=== PATIENT | female | born 1965 | race Caucasian/White ===

== ENCOUNTER 2019-08-17 12:30 | Day surgery (SDC) | payer MEDICAID ==
[~2019-08-17] VITALS: Ht 167.6 cm; Wt 95.3 kg
[2019-08-17] MEDS ORDERED: GLIP5TAB13 PO (12:45)
[2019-08-17] MEDS ORDERED: CLOP75TA35 PO (12:45)
[2019-08-17] MEDS ORDERED: CHOL500049 PO (12:45)
[2019-08-17] MEDS ORDERED: FERR1TAB21 PO (12:45)
[2019-08-17] MEDS ORDERED: ASPI-1130 PO (12:45)
[2019-08-17] MEDS ORDERED: METF-438 PO (12:45)
[2019-08-17] MEDS ORDERED: ATOR-2 PO (12:45)
[2019-08-17] MEDS ORDERED: METO-395 PO (12:45)
[2019-08-17] MEDS ORDERED: ESCI20TA45 PO (12:45)
[2019-08-17] MEDS ORDERED: LATA2.5D2 EACHEYE (12:45)
[2019-08-17 13:51] LABS: CLARITY,URINE CLEAR (Clear); COLOR,URINE YELLOW (Yellow); GLUCOSE, URINE NEGATIVE (Neg); KETONES,URINE NEGATIVE (Neg); LEUKOCYTE ESTERASE ,URINE NEGATIVE (Neg); NITRITES, URINE NEGATIVE (Neg); OCCULT BLOOD,URINE NEGATIVE (Neg); PH,URINE 6.5 (4.8-8.0); PROTEIN,URINE NEGATIVE (Neg); UROBILINOGEN,URINE 0.2 E.U/dL (0.2-1.0)
[2019-08-17 13:57] LABS: UA COLLECTION TYPE NON-SPECIFIED
[2019-08-17 15:59] LABS: BASOPHILS # (AUTO) 0.1 X10'3 (0-0.2); EOSINOPHILS # (AUTO) 0.1 X10'3 (0-0.9); EOSINOPHILS % (AUTO) 1.9 % (0-6); LYMPHOCYTES # (AUTO) 2.7 X10'3 (1.1-4.8); LYMPHOCYTES % (AUTO) 35.9 % (21-51); MEAN CORPUSCULAR HEMOGLOBIN 27.7 PG (27.0-31.0); MEAN CORPUSCULAR HGB CONC 32.5 g/dL (33.0-36.5); MEAN PLATELET VOLUME 6.8 FL (7.4-10.4); MONOCYTES # (AUTO) 0.3 X10'3 (0-0.9); MONOCYTES % (AUTO) 4.5 % (2-12); NEUTROPHILS # (AUTO) 4.3 X10'3 (1.8-7.7); NEUTROPHILS % (AUTO) 56.7 % (42-75); PRE OP HEMATOCRIT 33.3 % (35.0-45.0); PRE OP PLATELET COUNT 403 X10'3 (140-440); RED BLOOD COUNT 3.91 X10'6 (4.20-5.60); RED CELL DISTRIBUTION WIDTH 16.9 % (11.5-14.5)
[2019-08-17 16:00] LABS: PRE OP HEMOGLOBIN 10.8 g/dL (12.0-16.0)
[2019-08-17 16:12] LABS: PRE OP PROTIME 10.6 SECONDS (9.0-12.0)
[2019-08-17 16:14] LABS: HEMOGLOBIN A1C 6.6 % (4.5-6.2)
[2019-08-17 16:15] LABS: ALBUMIN 3.8 G/DL (3.4-5.0); ALBUMIN/GLOBULIN RATIO 1.3 (1.1-1.5); ALKALINE PHOSPHATASE 75 IU/L (46-116); BLOOD UREA NITROGEN 10 MG/DL (7-18); BUN/CREATININE RATIO 13.2 (6.6-38.0); CALCIUM 9.3 MG/DL (8.5-10.1); CHLORIDE 106 MMOL/L (99-107); CREATININE 0.76 MG/DL (0.40-0.90); PRE OP ALT 24 U/L (30-65); PRE OP ANION GAP 2 (8-16); PRE OP AST 16 U/L (10-37); PRE OP BILIRUB, TOTAL 0.2 MG/DL (0.0-1.0); PRE OP GLUCOSE 124 MG/DL (70-104); PRE OP POTASSIUM 4.1 MMOL/L (3.4-5.1); PRE OP SODIUM 140 MMOL/L (135-145); TOTAL CARBON DIOXIDE 31.8 MMOL/L (24-32); TOTAL PROTEIN 6.8 G/DL (6.4-8.2); eGFR 80 ML/MIN
[2019-08-18] MEDS ORDERED: DEC4T PO (21:34)
[2019-08-20] MEDS ORDERED: ringers solution, lacted 1,000 ML IV SCH (05:00)
[2019-08-20] MEDS ORDERED: cefazolin/dext.iso 2gm/50ml 50 ML IV ONE (05:30)
[2019-08-20] MEDS ORDERED: LORazepam 2 mg/ml vial IV PRN (05:30)
[2019-08-20] MEDS ORDERED: metoprolol tartrate 12.5mg (1/2 tablet) PO ONE (05:30)
[2019-08-20] MEDS ORDERED: mupirocin 2% nasal ointment 1gm UD NS ONE (05:30)
[2019-08-20] MEDS ORDERED: gabapentin 400mg capsule PO ONE (05:30)
[2019-08-20] MEDS ORDERED: Insulin Reg/NS 100units/100mL 100 ML IV SCH (05:30)
[2019-08-20] MEDS ORDERED: DOCUMENT DATE & TIME OF BETA-BLOCKER PO ONE (05:30)
[2019-08-20] MEDS ORDERED: vancomycin inj 1,500 MG in normal saline 300ml IV soln IV ONE (05:30)
[2019-08-20] MEDS ORDERED: dextrose 50%-water 50ml dispensing syringe IV PRN (05:30)
[2019-08-20] MEDS ORDERED: insulin glargine (Lantus) pen - multi-dose SQ PRN (05:30)
[2019-08-20] MEDS ORDERED: famotidine 20mg tablet PO ONE (05:30)
[2019-08-20 10:46] LABS: ABG BASE EXCESS -1.3 mmol/L (-2.0-3.0); ABG HCO3 22.5 mmol/L (22.0-26.0); ABG OXYGEN SATURATION 96.6 % (95-98); ABG PCO2 (T) 34.7 mmHg (35.0-45.0); ABG PO2 (T) 89.4 mmHg (83-108); ALLEN'S TEST POSITIVE; FCOHb 0.3 % (0.5-1.5); FMetHb 0.1 % (0.3-1.12); FO2Hb 96.2 % (94-100); TOTAL HEMOGLOBIN 11.2 G/dl (12.0-16.0)
== END 2019-08-17 23:59 | disposition home or self-care (01) ==
LOC: PRE-OP 12:30 → EDSTATUS 08-20 07:30
PROVIDERS: ATTEND Thoracic Surgery (Cardiothoracic Vascular Surgery)
DX: I25.110 Atherosclerotic heart disease of native coronary artery with unstable angina pectoris (principal); R07.9 Chest pain, unspecified; R94.31 Abnormal electrocardiogram [ECG] [EKG]; I25.2 Old myocardial infarction; R53.83 Other fatigue; R53.1 Weakness; E78.5 Hyperlipidemia, unspecified; D64.9 Anemia, unspecified; E11.39 Type 2 diabetes mellitus with other diabetic ophthalmic complication; H42 Glaucoma in diseases classified elsewhere; Z98.890 Other specified postprocedural states; Z79.01 Long term (current) use of anticoagulants; Z79.899 Other long term (current) drug therapy
CPT/HCPCS: 36415; 36600; 71046; 80053; 81003; 82803; 83036; 85018; 85025; 85576; 85610; 85730; 86885; 86900; 86901; 86920; 87081; 93005; 93880; 93930; 93970; 94760; J1815; J3370; J7120

== ENCOUNTER 2019-08-18 19:45 | Inpatient (IN) | payer MEDICAID ==
[~2019-08-18] VITALS: Ht 172.7 cm; Wt 97.8 kg
[~2019-08-18 19:45] MED LIST: ASPI-1130 PO; ATOR-2 PO; CHOL500049 PO; CLOP75TA35 PO; ESCI20TA45 PO; FERR1TAB21 PO; GLIP5TAB13 PO; LATA2.5D2 EACHEYE; METF-438 PO; METO-395 PO; albumin (human) 25% 100 ML IV solution IV ONE; aminocaproic acid 250 MG/1 ML inj. ONE; heparin 10,000 units/1 ML INJ ONE; papaverine 30 mg/ml 2ml inj. ONE
[2019-08-18 20:29] LABS: BASOPHILS % (AUTO) 0.1 % (0-1); EOSINOPHILS % (AUTO) 0 % (0-6); HEMATOCRIT 32.5 % (35.0-45.0); HEMOGLOBIN 10.8 g/dl (12.0-16.0); LYMPHOCYTES # (AUTO) 0.7 X10'3 (1.1-4.8); LYMPHOCYTES % (AUTO) 7.2 % (21-51); MEAN CORPUSCULAR HEMOGLOBIN 28.1 PG (27.0-31.0); MEAN CORPUSCULAR HGB CONC 33.3 g/dL (33.0-36.5); MEAN CORPUSCULAR VOLUME 84.2 FL (78-98); MEAN PLATELET VOLUME 7.3 FL (7.4-10.4); MONOCYTES # (AUTO) 0.1 X10'3 (0-0.9); MONOCYTES % (AUTO) 1.6 % (2-12); NEUTROPHILS # (AUTO) 8.6 X10'3 (1.8-7.7); NEUTROPHILS % (AUTO) 91.1 % (42-75); PLATELET COUNT 412 X10'3 (140-440); RED BLOOD COUNT 3.86 X10'6 (4.20-5.60); WHITE BLOOD COUNT 9.5 X10'3 (4.5-11.0)
[2019-08-18 20:37] LABS: PARTIAL THROMBOPLASTIN TIME 26 SECONDS (22-32)
[2019-08-18 20:41] LABS: ALANINE AMINOTRANSFERASE 23 U/L (12-78); ALBUMIN 4.1 G/DL (3.4-5.0); ALBUMIN/GLOBULIN RATIO 1.3 (1.1-1.5); ALKALINE PHOSPHATASE 84 IU/L (46-116); ANION GAP 9 (8-16); ASPARTATE AMINO TRANSFERASE 12 U/L (10-37); BILIRUBIN,TOTAL 0.3 MG/DL (0.1-1.0); BLOOD UREA NITROGEN 13 MG/DL (7-18); BUN/CREATININE RATIO 15.3 (6.6-38.0); CALCIUM 9.1 MG/DL (8.5-10.1); CHLORIDE 100 MMOL/L (99-107); CREATININE 0.85 MG/DL (0.40-0.90); GLUCOSE 430 MG/DL (70-104); POTASSIUM 4.8 MMOL/L (3.5-5.1); SODIUM 135 MMOL/L (135-145); TOTAL PROTEIN 7.3 G/DL (6.4-8.2); eGFR 70 ML/MIN
[2019-08-18] MEDS ORDERED: DEC4T PO (21:34)
[2019-08-18] MEDS ORDERED: heparin 25,000 UNIT/250ml bag 250 ML IV SCH ×2 (21:36→21:48)
[2019-08-18] MEDS ORDERED: potassium CL 10mEq/100ml bag 100 ML IV PRN ×3 (21:40→22:20)
[2019-08-18] MEDS ORDERED: acetaminophen 325mg tablet PO PRN (21:40)
[2019-08-18] MEDS ORDERED: heparin 10,000 units/1 ML INJ IV PRN ×2 (21:40→21:50)
[2019-08-18] MEDS ORDERED: HYDROcodone/acetaminophen 5mg/325mg tablet PO PRN (21:40)
[2019-08-18] MEDS ORDERED: mag hydrox/Alum hydrox/simeth 30ml oral suspension PO PRN (21:40)
[2019-08-18] MEDS ORDERED: heparin 10,000 units/1 ML INJ IV ONE ×2 (21:40→21:50)
[2019-08-18] MEDS ORDERED: magnesium Cl slow-release 64mg tablet PO PRN (21:40)
[2019-08-18] MEDS ORDERED: magnesium 2GM in 50ml NS 50 ML IV PRN ×2 (21:40→22:20)
[2019-08-18] MEDS ORDERED: magnesium 4gm in 100ml NS 100 ML IV PRN ×2 (21:40→22:20)
[2019-08-18] MEDS ORDERED: magnesium hydroxide 30ml (MOM) UD suspension PO PRN (21:40)
[2019-08-18] MEDS ORDERED: ondansetron/PF 4mg/2ml inj IV PRN (21:40)
[2019-08-18] MEDS ORDERED: potassium Cl 20 mEq SR tablet PO PRN ×3 (21:40→22:20)
[2019-08-18] MEDS ORDERED: dextrose ORAL solution 15 GM/59 ML bottle PO PRN ×2 (22:15)
[2019-08-18] MEDS ORDERED: dextrose 50%-water 50ml dispensing syringe IV PRN ×2 (22:15)
[2019-08-18] MEDS ORDERED: MESSAGE TO PHARMACY PO ONE (22:15)
[2019-08-18] MEDS ORDERED: glucagon, human recombinant 1mg kit SUBCUT PRN (22:15)
[2019-08-18] MEDS ORDERED: potassium Cl 20mEq/100mL bag 100 ML IV PRN (22:20)
[2019-08-18] MEDS ORDERED: MESSAGE TO NURSING PO ONE (22:20)
[2019-08-18] MEDS ORDERED: ESCITALOPRAM OXALATE 5 MG TABLET PO SCH (22:55)
[2019-08-18] MEDS ORDERED: atorvastatin 20mg tablet PO ONE (22:55)
[2019-08-18] MEDS ORDERED: dexamethasone 4mg tablet PO ONE (22:55)
[2019-08-18] MEDS ORDERED: ESCITALOPRAM OXALATE 5 MG TABLET PO ONE (22:55)
[2019-08-18] MEDS ORDERED: insulin glargine (Lantus) pen - multi-dose SQ SCH (23:15)
[2019-08-18] MEDS: latanoprost 0.005% 2.5ml ophthalmic drops EACHEYE SCH (23:18)
[2019-08-19] VITALS (14 sets, daily range): BP systolic 101–132; BP diastolic 42–88
--- NOTE | 2019-08-19 00:50 | NUR ---
Patient in room ED 15. I have received report from PREETHI GARCIA and had the opportunity to ask questions and assume patient care.
[2019-08-19] MEDS ORDERED: ringers solution, lacted 1,000 ML IV SCH (04:52)
[2019-08-19] MEDS ORDERED: MESSAGE TO NURSING PO ONE ×2 (04:55→10:00)
[2019-08-19] MEDS ORDERED: insulin glargine (Lantus) pen - multi-dose SQ PRN ×2 (04:55→16:15)
[2019-08-19] MEDS ORDERED: dextrose 50%-water 50ml dispensing syringe IV PRN ×2 (04:55→16:15)
[2019-08-19] MEDS ORDERED: cefazolin/dext.iso 2gm/50ml 50 ML IV ONE (05:00)
[2019-08-19] MEDS ORDERED: gabapentin 400mg capsule PO ONE (05:00)
[2019-08-19] MEDS ORDERED: vancomycin/NS 1 GM ADD-VANTAGE 250 ML IV ONE (05:00)
[2019-08-19] MEDS ORDERED: MALTODEXTRIN/FRUCTOSE 0.68 KCAL/ML LIQUID 296ML BOTTLE PO ONE (05:00)
[2019-08-19 05:52] LABS: ALANINE AMINOTRANSFERASE 18 U/L (12-78); ALBUMIN 3.8 G/DL (3.4-5.0); ALBUMIN/GLOBULIN RATIO 1.2 (1.1-1.5); ALKALINE PHOSPHATASE 66 IU/L (46-116); ANION GAP 11 (8-16); ASPARTATE AMINO TRANSFERASE 12 U/L (10-37); BILIRUBIN,TOTAL 0.3 MG/DL (0.1-1.0); BLOOD UREA NITROGEN 9 MG/DL (7-18); BUN/CREATININE RATIO 13.2 (6.6-38.0); CHLORIDE 103 MMOL/L (99-107); CREATININE 0.68 MG/DL (0.40-0.90); GLUCOSE 253 MG/DL (70-104); PHOSPHORUS 2.7 MG/DL (2.3-4.5); POTASSIUM 4.1 MMOL/L (3.5-5.1); SODIUM 139 MMOL/L (135-145); TOTAL CARBON DIOXIDE 25.1 MMOL/L (24-32); TOTAL PROTEIN 6.9 G/DL (6.4-8.2); eGFR > 90 ML/MIN
--- NOTE | 2019-08-19 06:10 | NUR ---
Patient in room MED 312. I have received report from JOSE Howe and had the opportunity to ask questions and assume patient care.
[2019-08-19 06:17] LABS: BASOPHILS % (AUTO) 0.1 % (0-1); EOSINOPHILS % (AUTO) 0 % (0-6); HEMATOCRIT 30.2 % (35.0-45.0); HEMOGLOBIN 10.3 g/dl (12.0-16.0); LYMPHOCYTES % (AUTO) 11.5 % (21-51); MEAN CORPUSCULAR HEMOGLOBIN 28.7 PG (27.0-31.0); MEAN CORPUSCULAR HGB CONC 34.1 g/dL (33.0-36.5); MEAN CORPUSCULAR VOLUME 84.1 FL (78-98); MEAN PLATELET VOLUME 7.4 FL (7.4-10.4); MONOCYTES # (AUTO) 0.2 X10'3 (0-0.9); MONOCYTES % (AUTO) 2.6 % (2-12); NEUTROPHILS # (AUTO) 7.1 X10'3 (1.8-7.7); NEUTROPHILS % (AUTO) 85.8 % (42-75); PLATELET COUNT 349 X10'3 (140-440); RED BLOOD COUNT 3.59 X10'6 (4.20-5.60); RED CELL DISTRIBUTION WIDTH 16.9 % (11.5-14.5); WHITE BLOOD COUNT 8.3 X10'3 (4.5-11.0)
[2019-08-19] MEDS: dexamethasone 4mg tablet PO SCH ×2 (07:47→20:08)
[2019-08-19] MEDS ORDERED: ESCITALOPRAM OXALATE 5 MG TABLET PO SCH (08:00)
[2019-08-19] MEDS ORDERED: metoprolol succinate 25mg (24-HOUR) SR. Tablet PO SCH (08:00)
[2019-08-19] MEDS ORDERED: aspirin 81mg tablet.DR PO SCH (08:00)
[2019-08-19] MEDS ORDERED: K and/or MAG REPLACEMENT MC SCH (08:00)
[2019-08-19] MEDS ORDERED: metoprolol tartrate 12.5mg (1/2 tablet) PO SCH (08:00)
[2019-08-19] MEDS ORDERED: mupirocin 2% ointment 22GM NS SCH ×2 (08:00→20:00)
[2019-08-19] MEDS ORDERED: atorvastatin 20mg tablet PO SCH (08:00)
[2019-08-19] MEDS: insulin Lispro (HumaLOG) vial - multi-dose SQ SCH ×2 (08:08→10:01)
[2019-08-19] MEDS ORDERED: ceFAZolin 1000mg inj ONE (09:33)
[2019-08-19] MEDS ORDERED: famotidine 20mg tablet PO ONE (10:10)
[2019-08-19] MEDS ORDERED: LORazepam 2 mg/ml vial IV ONE (10:10)
[2019-08-19] MEDS ORDERED: SUFENTANIL CITRATE 50 MCG/ML 2ml ampule IV ONE (10:48)
[2019-08-19] MEDS ORDERED: MIDAZolam 1mg/ml 10ml vial ONE (10:48)
[2019-08-19] MEDS ORDERED: cefazolin 2gm/NS 100ml IVPB IV ONE (10:50)
[2019-08-19] MEDS ORDERED: protamine sulf. 10mg/ml inj. IV ONE (10:50)
[2019-08-19] MEDS ORDERED: isoflurane 100ml inhalation liquid IH ONE (10:50)
[2019-08-19] MEDS ORDERED: aminocaproic acid 250 MG/1 ML inj. ONE (10:50)
[2019-08-19] MEDS ORDERED: INSULIN Regular In NS 100 units/100 ML PLAST..BAG IV ONE (10:50)
[2019-08-19] MEDS ORDERED: niCARDipine in NS 40mg/200ml (0.2mg/ml) IVPB IV ONE (10:50)
[2019-08-19] MEDS ORDERED: DOPamine/D5W 400mg/250ml bag IV ONE (10:50)
[2019-08-19] MEDS ORDERED: nitroGLYCERIN in D5W 50mg/250ml (Tridil) infusion IV ONE (10:50)
--- NOTE | 2019-08-19 11:00 | NUR ---
Patient to CVOR.
[2019-08-19] MEDS: mupirocin 2% nasal ointment 1gm UD NS SCH (11:02)
[2019-08-19 12:01] LABS: ABG BASE EXCESS 0.5 mmol/L (-2.0-3.0); ABG HCO3 24.7 mmol/L (22.0-26.0); ABG OXYGEN SATURATION 99.4 % (95-98); ABG PCO2 37.8 mmHg (35.0-45.0); ABG PH 7.433 (7.350-7.450); ABG PO2 406.1 mmHg (60.0-100.0); CL (ABG) 102 mmol/L (99-107); FMetHb 0.3 % (0.3-1.12); FO2Hb 99.1 % (94-100); GLUCOSE (ABG) 249 mg/dl (70-104); K (ABG) 3.9 mmol/L (3.3-5.1); NA (ABG) 133 mmol/L (135-145); TOTAL HEMOGLOBIN 9.2 G/dl (12.0-16.0)
[2019-08-19] MEDS ORDERED: propofol inj 20 ML IV ONE (12:12)
[2019-08-19] MEDS ORDERED: rocuronium 10mg/ml inj IV ONE ×2 (12:12)
[2019-08-19] MEDS ORDERED: 0.9 % SODIUM CHLORIDE 10 ML VIAL ONE ×2 (12:12)
[2019-08-19] MEDS ORDERED: LIDOcaine 2% (20mg/ml) 5ml vial ONE (12:12)
[2019-08-19] MEDS ORDERED: ePHEDrine 50MG/ML INJ. ONE (12:12)
[2019-08-19] MEDS ORDERED: papaverine 30 mg/ml 2ml inj. IA ONE ×2 (12:24→12:25)
[2019-08-19] MEDS ORDERED: heparin 10,000 units/1 ML INJ IR ONE (12:26)
[2019-08-19] MEDS ORDERED: pancuronium br 1mg/ml inj IV ONE (12:41)
[2019-08-19 12:55] LABS: ABG BASE EXCESS -1.3 mmol/L (-2.0-3.0); ABG HCO3 23.1 mmol/L (22.0-26.0); ABG OXYGEN SATURATION 80.3 % (95-98); ABG PCO2 37.2 mmHg (35.0-45.0); ABG PO2 46.5 mmHg (60.0-100.0); CL (ABG) 103 mmol/L (99-107); FCOHb 0.3 % (0.5-1.5); FMetHb 0.4 % (0.3-1.12); FO2Hb 79.7 % (94-100); GLUCOSE (ABG) 197 mg/dl (70-104); IONIZED CA (ABG) 1.17 mmol/L (1.03-1.32); K (ABG) 4.2 mmol/L (3.3-5.1); NA (ABG) 135 mmol/L (135-145); TOTAL HEMOGLOBIN 9.3 G/dl (12.0-16.0)
--- NOTE | 2019-08-19 13:05 | NUR ---
Called report to JOSE Mims. Plan of care reviewed, all questions answered. Personal belongings collected and sent to [facility] 2007.
[2019-08-19 13:30] LABS: ABG BASE EXCESS VENOUS -2.4 mmol/L; ABG HCO3 VENOUS 20.9 mmol/L; ABG PCO2 VENOUS 30.5 mmHg; ABG PO2 VENOUS 411.7 mmHg; CL (ABG) 105 mmol/L (99-107); FCOHb VENOUS 0.3 %; FHHb VENOUS 0.7 %; FMetHb VENOUS 0.5 %; FO2Hb VENOUS 98.5 %; GLUCOSE (ABG) 161 mg/dl (70-104); IONIZED CA (ABG) 1.14 mmol/L (1.03-1.32); K (ABG) 4.1 mmol/L (3.3-5.1); NA (ABG) 136 mmol/L (135-145); TOTAL HEMOGLOBIN 9.9 G/dl (12.0-16.0)
[2019-08-19 14:00] LABS: ABG BASE EXCESS 0.3 mmol/L (-2.0-3.0); ABG HCO3 22.8 mmol/L (22.0-26.0); ABG OXYGEN SATURATION 99.2 % (95-98); ABG PCO2 28.5 mmHg (35.0-45.0); ABG PO2 323.4 mmHg (60.0-100.0); CL (ABG) 101 mmol/L (99-107); FCOHb 0.1 % (0.5-1.5); FMetHb 0.5 % (0.3-1.12); FO2Hb 98.6 % (94-100); GLUCOSE (ABG) 163 mg/dl (70-104); IONIZED CA (ABG) 0.91 mmol/L (1.03-1.32); K (ABG) 4.1 mmol/L (3.3-5.1); NA (ABG) 133 mmol/L (135-145); TOTAL HEMOGLOBIN 8.6 G/dl (12.0-16.0)
[2019-08-19] MEDS ORDERED: midazolam 100mg in NS 100ml 100 ML IV PRN (14:01)
[2019-08-19] MEDS ORDERED: midazolam 2 mg/2 ml injection IV ONE (14:05)
[2019-08-19] MEDS ORDERED: fentaNYL/PF 50MCG/1 ML 2ML syringe IV PRN ×2 (14:05)
[2019-08-19 14:20] LABS: ABG BASE EXCESS -1.1 mmol/L (-2.0-3.0); ABG HCO3 22.7 mmol/L (22.0-26.0); ABG OXYGEN SATURATION 99.3 % (95-98); ABG PH 7.442 (7.350-7.450); ABG PO2 319.8 mmHg (60.0-100.0); CL (ABG) 103 mmol/L (99-107); FCOHb 0.5 % (0.5-1.5); FMetHb 0.3 % (0.3-1.12); FO2Hb 98.5 % (94-100); GLUCOSE (ABG) 145 mg/dl (70-104); IONIZED CA (ABG) 1.05 mmol/L (1.03-1.32); K (ABG) 4.9 mmol/L (3.3-5.1); NA (ABG) 134 mmol/L (135-145); TOTAL HEMOGLOBIN 8.8 G/dl (12.0-16.0)
[2019-08-19 14:50] LABS: ABG BASE EXCESS 2.8 mmol/L (-2.0-3.0); ABG HCO3 26.8 mmol/L (22.0-26.0); ABG OXYGEN SATURATION 99.1 % (95-98); ABG PCO2 38.8 mmHg (35.0-45.0); ABG PH 7.457 (7.350-7.450); ABG PO2 328.3 mmHg (60.0-100.0); CL (ABG) 105 mmol/L (99-107); FCOHb 0.1 % (0.5-1.5); FMetHb 0.4 % (0.3-1.12); FO2Hb 98.6 % (94-100); GLUCOSE (ABG) 151 mg/dl (70-104); IONIZED CA (ABG) 1.05 mmol/L (1.03-1.32); K (ABG) 4.8 mmol/L (3.3-5.1); NA (ABG) 137 mmol/L (135-145); TOTAL HEMOGLOBIN 9.1 G/dl (12.0-16.0)
[2019-08-19 15:26] LABS: ABG BASE EXCESS 0.9 mmol/L (-2.0-3.0); ABG HCO3 25.3 mmol/L (22.0-26.0); ABG OXYGEN SATURATION 99.2 % (95-98); ABG PCO2 39.4 mmHg (35.0-45.0); ABG PH 7.426 (7.350-7.450); CL (ABG) 103 mmol/L (99-107); FCOHb 0.3 % (0.5-1.5); FMetHb 0.6 % (0.3-1.12); FO2Hb 98.3 % (94-100); GLUCOSE (ABG) 141 mg/dl (70-104); IONIZED CA (ABG) 1.61 mmol/L (1.03-1.32); K (ABG) 4.5 mmol/L (3.3-5.1); NA (ABG) 134 mmol/L (135-145); TOTAL HEMOGLOBIN 9.3 G/dl (12.0-16.0)
[2019-08-19] MEDS ORDERED: albumin (Human) 5% 250ml 250 ML IV ONE (15:53)
[2019-08-19] MEDS ORDERED: niCARDipine-NS 40mg/200ml IVPB 200 ML IV PRN (16:13)
[2019-08-19] MEDS ORDERED: sodium chloride 0.45% 1,000 ML IV SCH (16:13)
[2019-08-19] MEDS ORDERED: nitroGLYCERIN-Tridil 50MG/D5W 250 ML IV PRN (16:13)
[2019-08-19] MEDS ORDERED: DOPamine 400mg/D5W 250ml 250 ML IV PRN (16:13)
[2019-08-19] MEDS ORDERED: Insulin Reg/NS 100units/100mL 100 ML IV SCH (16:13)
[2019-08-19] MEDS ORDERED: potassium Cl 20 mEq SR tablet PO PRN (16:15)
[2019-08-19] MEDS ORDERED: acetaminophen 325mg tablet PO PRN ×2 (16:15)
[2019-08-19] MEDS ORDERED: bisacodyl 10mg suppository rectal RC PRN (16:15)
[2019-08-19] MEDS ORDERED: magnesium citrate 296ml oral solution PO PRN (16:15)
[2019-08-19] MEDS ORDERED: morphine 4 MG/ML inj SYRINge IV PRN (16:15)
[2019-08-19] MEDS ORDERED: sodium phosphate inj. 30 MMOL in dextrose 5%-water 250 ML IV PRN (16:15)
[2019-08-19] MEDS ORDERED: magnesium 2GM in 50ml NS 50 ML IV PRN (16:15)
[2019-08-19] MEDS ORDERED: metoclopramide 5 mg/ml inj IV PRN (16:15)
[2019-08-19] MEDS ORDERED: pantoprazole 40 MG vial IV ONE (16:15)
[2019-08-19] MEDS ORDERED: ondansetron/PF 4mg/2ml inj IV PRN (16:15)
[2019-08-19] MEDS ORDERED: magnesium hydroxide 30ml (MOM) UD suspension PO PRN (16:15)
[2019-08-19] MEDS ORDERED: magnesium 4gm in 100ml NS 100 ML IV PRN (16:15)
[2019-08-19] MEDS ORDERED: sodium phosphate inj. 15 MMOL in dextrose 5%-water 250 ML IV PRN (16:15)
[2019-08-19] MEDS ORDERED: mineral oil 133ml enema RC PRN (16:15)
[2019-08-19] MEDS ORDERED: normal saline 250ml IV soln 250 ML IV PRN (16:15)
[2019-08-19] MEDS ORDERED: Neutra Phos packet PO PRN (16:15)
[2019-08-19] MEDS ORDERED: HYDROcodone/acetaminophen 10/325mg tab PO PRN (16:15)
--- NOTE | 2019-08-19 16:30 | NUR ---
Received to room , accompanied by MDs and surgical crew. Placed on ventilator, to traffic monitor specialist, arterial line and PA line pressure monitored. Chest tubes to suction at 20 cm. Olivarez cath to gravity drainage. Dressings are dry and intact. See assessment record. All vasoactive drugs are infusing via central line.
[2019-08-19 16:45] LABS: ABG BASE EXCESS -0.2 mmol/L (-2.0-3.0); ABG HCO3 23.1 mmol/L (22.0-26.0); ABG OXYGEN SATURATION 99.2 % (95-98); ABG PCO2 (T) 33.3 mmHg (35.0-45.0); ABG PH (T) 7.459 (7.350-7.450); ABG PO2 (T) 249.3 mmHg (83-108); FCOHb 0.3 % (0.5-1.5); FMetHb 0.4 % (0.3-1.12); FO2Hb 98.5 % (94-100); PEEP 5 cm H2O; RESPIRATORY RATE 12 b/min; TIDAL VOLUME 500 mL
[2019-08-19 16:47] LABS: BASOPHILS % (AUTO) 0.1 % (0-1); EOSINOPHILS % (AUTO) 0 % (0-6); HEMATOCRIT 32.7 % (35.0-45.0); HEMOGLOBIN 11.1 g/dl (12.0-16.0); LYMPHOCYTES % (AUTO) 5.1 % (21-51); MEAN CORPUSCULAR HEMOGLOBIN 28.5 PG (27.0-31.0); MEAN CORPUSCULAR HGB CONC 34.1 g/dL (33.0-36.5); MEAN CORPUSCULAR VOLUME 83.6 FL (78-98); MONOCYTES % (AUTO) 5.5 % (2-12); NEUTROPHILS # (AUTO) 17.1 X10'3 (1.8-7.7); NEUTROPHILS % (AUTO) 89.3 % (42-75); PLATELET COUNT 229 X10'3 (140-440); RED BLOOD COUNT 3.91 X10'6 (4.20-5.60); WHITE BLOOD COUNT 19.1 X10'3 (4.5-11.0)
[2019-08-19 16:53] LABS: ALANINE AMINOTRANSFERASE 15 U/L (12-78); ALBUMIN 2.9 G/DL (3.4-5.0); ALBUMIN/GLOBULIN RATIO 1.6 (1.1-1.5); ALKALINE PHOSPHATASE 39 IU/L (46-116); ANION GAP 5 (8-16); ASPARTATE AMINO TRANSFERASE 34 U/L (10-37); BILIRUBIN,TOTAL 0.7 MG/DL (0.1-1.0); BLOOD UREA NITROGEN 9 MG/DL (7-18); BUN/CREATININE RATIO 14.5 (6.6-38.0); CALCIUM 8.6 MG/DL (8.5-10.1); CHLORIDE 111 MMOL/L (99-107); CREATININE 0.62 MG/DL (0.40-0.90); GLUCOSE 142 MG/DL (70-104); PHOSPHORUS 2.3 MG/DL (2.3-4.5); POTASSIUM 3.8 MMOL/L (3.5-5.1); SODIUM 143 MMOL/L (135-145); TOTAL CARBON DIOXIDE 27.1 MMOL/L (24-32); TOTAL PROTEIN 4.7 G/DL (6.4-8.2); eGFR > 90 ML/MIN
[2019-08-19] MEDS: albumin (Human) 5% 250ml 250 ML IV PRN ×3 (17:06→20:05)
[2019-08-19 17:14] LABS: PARTIAL THROMBOPLASTIN TIME 23 SECONDS (22-32)
--- NOTE | 2019-08-19 18:27 | NUR ---
Problems reprioritized. Patient report given, questions answered & plan of care reviewed with JOSE Rivera.
--- NOTE | 2019-08-19 18:30 | NUR ---
[facility]. I have received report from Prasanna GARCIA and had the opportunity to ask questions and assume patient care. Addendum: 08/19/19 at 204 by Nicole Porter RN Amended: Links added.
[2019-08-19] MEDS: sennosides/docusate sodium tablet PO SCH (20:00)
[2019-08-19] MEDS: gabapentin 300mg capsule PO SCH (20:09)
[2019-08-19] MEDS: vancomycin/NS 1 GM ADD-VANTAGE 250 ML IV SCH (20:18)
[2019-08-19] MEDS: morphine 4 MG/ML inj SYRINge IV PRN ×2 (20:25→22:42)
[2019-08-19] MEDS: latanoprost 0.005% 2.5ml ophthalmic drops EACHEYE SCH (21:00)
[2019-08-19] MEDS ORDERED: insulin glargine (Lantus) pen - multi-dose SQ SCH (21:00)
[2019-08-19] MEDS: ESCITALOPRAM OXALATE 5 MG TABLET PO SCH (21:00)
[2019-08-19 22:21] LABS: ABG BASE EXCESS -0.7 mmol/L (-2.0-3.0); ABG HCO3 24.3 mmol/L (22.0-26.0); ABG OXYGEN SATURATION 96.6 % (95-98); ABG PCO2 (T) 43.3 mmHg (35.0-45.0); ABG PH (T) 7.371 (7.350-7.450); ABG PO2 (T) 96.2 mmHg (83-108); FCOHb 0.3 % (0.5-1.5); FMetHb 0.2 % (0.3-1.12); FO2Hb 96.1 % (94-100); PATIENT TEMPERATURE 37.8; PEEP 5 cm H2O
[2019-08-19 22:44] LABS: BASOPHILS % (AUTO) 0.1 % (0-1); EOSINOPHILS % (AUTO) 0 % (0-6); HEMATOCRIT 30.9 % (35.0-45.0); HEMOGLOBIN 10.4 g/dl (12.0-16.0); LYMPHOCYTES # (AUTO) 0.6 X10'3 (1.1-4.8); LYMPHOCYTES % (AUTO) 3.5 % (21-51); MEAN CORPUSCULAR HEMOGLOBIN 28.1 PG (27.0-31.0); MEAN CORPUSCULAR HGB CONC 33.6 g/dL (33.0-36.5); MEAN CORPUSCULAR VOLUME 83.9 FL (78-98); MEAN PLATELET VOLUME 7.1 FL (7.4-10.4); MONOCYTES # (AUTO) 0.8 X10'3 (0-0.9); MONOCYTES % (AUTO) 4.7 % (2-12); NEUTROPHILS # (AUTO) 14.7 X10'3 (1.8-7.7); NEUTROPHILS % (AUTO) 91.7 % (42-75); PLATELET COUNT 211 X10'3 (140-440); RED BLOOD COUNT 3.68 X10'6 (4.20-5.60); RED CELL DISTRIBUTION WIDTH 16.1 % (11.5-14.5); WHITE BLOOD COUNT 16.1 X10'3 (4.5-11.0)
[2019-08-19 23:04] LABS: ALBUMIN 3.8 G/DL (3.4-5.0); ANION GAP 6 (8-16); BLOOD UREA NITROGEN 9 MG/DL (7-18); BUN/CREATININE RATIO 14.8 (6.6-38.0); CALCIUM 7.5 MG/DL (8.5-10.1); CHLORIDE 113 MMOL/L (99-107); CREATININE 0.61 MG/DL (0.40-0.90); GLUCOSE 142 MG/DL (70-104); MAGNESIUM 2.3 MG/DL (1.5-2.4); PHOSPHORUS 2.7 MG/DL (2.3-4.5); POTASSIUM 3.5 MMOL/L (3.5-5.1); SODIUM 147 MMOL/L (135-145); TOTAL CARBON DIOXIDE 27.9 MMOL/L (24-32); eGFR > 90 ML/MIN
--- NOTE | 2019-08-19 23:07 | NUR ---
Extubated patient to 4LNC w/RT without incident@2236. Patient tolerated well. Says 99% on 4L, will titrate as tolerated. Will continue to monitor.
[2019-08-20] VITALS (24 sets, daily range): BP systolic 76–116; BP diastolic 50–72
[2019-08-20] MEDS: potassium Cl 20mEq/100mL bag 100 ML IV PRN ×3 (00:20→03:02)
[2019-08-20] MEDS: ceFAZolin 1GM/D5W- ADD-VANTAGE 50 ML IV SCH ×3 (00:35→15:15)
[2019-08-20] MEDS: morphine 4 MG/ML inj SYRINge IV PRN (02:19)
--- NOTE | 2019-08-20 02:48 | NUR ---
Patient appears to be sleeping. Medicated for pain level of 7/10 per patient statement. Will continue to monitor.
[2019-08-20] MEDS: HYDROcodone/acetaminophen 10/325mg tab PO PRN ×3 (05:26→18:50)
--- NOTE | 2019-08-20 05:41 | NUR ---
Patient up to chair w/3 person assist. Tolerating well. No complaints of nausea or dizziness. Medicated for pain level of 4/10 per patient statement.
[2019-08-20 05:55] LABS: BASOPHILS % (AUTO) 0 % (0-1); EOSINOPHILS % (AUTO) 0 % (0-6); HEMATOCRIT 31.6 % (35.0-45.0); HEMOGLOBIN 10.6 g/dl (12.0-16.0); LYMPHOCYTES # (AUTO) 0.8 X10'3 (1.1-4.8); LYMPHOCYTES % (AUTO) 6.1 % (21-51); MEAN CORPUSCULAR HEMOGLOBIN 28.2 PG (27.0-31.0); MEAN CORPUSCULAR HGB CONC 33.6 g/dL (33.0-36.5); MEAN CORPUSCULAR VOLUME 83.8 FL (78-98); MEAN PLATELET VOLUME 7.1 FL (7.4-10.4); MONOCYTES % (AUTO) 7.3 % (2-12); NEUTROPHILS % (AUTO) 86.6 % (42-75); PLATELET COUNT 200 X10'3 (140-440); RED BLOOD COUNT 3.77 X10'6 (4.20-5.60); RED CELL DISTRIBUTION WIDTH 16.6 % (11.5-14.5); WHITE BLOOD COUNT 13.8 X10'3 (4.5-11.0)
[2019-08-20 06:02] LABS: PARTIAL THROMBOPLASTIN TIME 26 SECONDS (22-32)
[2019-08-20 06:06] LABS: ALANINE AMINOTRANSFERASE 23 U/L (12-78); ALBUMIN 3.7 G/DL (3.4-5.0); ALBUMIN/GLOBULIN RATIO 2.1 (1.1-1.5); ALKALINE PHOSPHATASE 38 IU/L (46-116); ANION GAP 4 (8-16); ASPARTATE AMINO TRANSFERASE 97 U/L (10-37); BILIRUBIN,TOTAL 0.7 MG/DL (0.1-1.0); BLOOD UREA NITROGEN 8 MG/DL (7-18); BUN/CREATININE RATIO 14.3 (6.6-38.0); CALCIUM 7.8 MG/DL (8.5-10.1); CHLORIDE 111 MMOL/L (99-107); CREATININE 0.56 MG/DL (0.40-0.90); GLUCOSE 181 MG/DL (70-104); MAGNESIUM 2.9 MG/DL (1.5-2.4); PHOSPHORUS 3.2 MG/DL (2.3-4.5); POTASSIUM 4.8 MMOL/L (3.5-5.1); SODIUM 144 MMOL/L (135-145); TOTAL CARBON DIOXIDE 28.7 MMOL/L (24-32); TOTAL PROTEIN 5.5 G/DL (6.4-8.2); eGFR > 90 ML/MIN
[2019-08-20] MEDS: Insulin Reg/NS 100units/100mL 100 ML IV SCH ×2 (06:20→07:31)
--- NOTE | 2019-08-20 06:24 | NUR ---
Problems reprioritized. Patient report given, questions answered & plan of care reviewed with Marisel GARCIA.
[2019-08-20] MEDS: sennosides/docusate sodium tablet PO SCH ×2 (07:21→20:00)
[2019-08-20] MEDS: dexamethasone 4mg tablet PO SCH ×3 (07:21→21:39)
[2019-08-20] MEDS: vancomycin/NS 1 GM ADD-VANTAGE 250 ML IV SCH ×2 (07:21→21:53)
[2019-08-20] MEDS: gabapentin 300mg capsule PO SCH ×3 (07:21→21:39)
[2019-08-20] MEDS: aspirin 325mg tablet, delayed-release (Ecotrin) PO SCH (07:24)
[2019-08-20] MEDS: atorvastatin 10mg tablet PO SCH (07:24)
[2019-08-20] MEDS: metoprolol tartrate 12.5mg (1/2 tablet) PO SCH ×2 (07:24→20:00)
[2019-08-20] MEDS: mupirocin 2% nasal ointment 1gm UD NS SCH ×2 (08:00→21:53)
[2019-08-20] MEDS ORDERED: insulin Lispro (HumaLOG) vial - multi-dose SQ SCH (08:50)
[2019-08-20 10:37] LABS: ACT @ 1.70 U 272 SEC (193-297); ACT @ 2.84 U 367 SEC (260-420); BASELINE ACT 139 SEC (101-148); PATIENT WEIGHT 96.0k KG
[2019-08-20 10:37] LABS: ACTIVATED CLOTTING TIME 130 SEC (101-148)
[2019-08-20 11:01] LABS: ISTAT Hct MIX 23 %PCV (35-48); ISTAT O2 SATURATION MIX VENOUS 100 % (60-80); ISTAT SOURCE BLNK
--- NOTE | 2019-08-20 11:04 | NUR ---
report given to MAURICIO GARCIA
[2019-08-20] MEDS ORDERED: albumin (Human) 5% 250ml 250 ML IV ONE ×2 (12:05)
--- NOTE | 2019-08-20 12:51 | NUR ---
CABG Consult: Pt s/p CABG will need CABG ed once clinically stable prior to d/c. Addendum: 08/20/19 at [address] Amended: Links added.
[2019-08-20] MEDS ORDERED: dextrose 50%-water 50ml dispensing syringe IV PRN ×2 (12:55)
[2019-08-20] MEDS ORDERED: glucagon, human recombinant 1mg kit SUBCUT PRN (12:55)
[2019-08-20] MEDS ORDERED: dextrose ORAL solution 15 GM/59 ML bottle PO PRN ×2 (12:55)
--- NOTE | 2019-08-20 12:58 | NUR ---
Pt's Humalog arrived from pharmacy and missed dosed. Hyperglycemia management protocol ordered per IV to SQ Insulin policy. Insulin gtt stopped. Pt has received 500mL 5% Albumin, BP has responded, pt is asymptomatic.
--- NOTE | 2019-08-20 16:30 | NUR ---
Right radial arterial line and PA catheter and introducer discontinued.
--- NOTE | 2019-08-20 18:44 | NUR ---
Problems reprioritized. Patient report given, questions answered & plan of care reviewed with JOSE Yoder.
--- NOTE | 2019-08-20 18:45 | NUR ---
Patient in room CICU 2006. I have received report from Prasanna GARCIA and had the opportunity to ask questions and assume patient care.
[2019-08-20] MEDS: insulin Lispro (HumaLOG) vial - multi-dose SQ SCH (19:48)
[2019-08-20] MEDS: mineral oil/petrolatum ophthal oint EACHEYE SCH (20:00)
[2019-08-20] MEDS: ESCITALOPRAM OXALATE 5 MG TABLET PO SCH (21:39)
[2019-08-20] MEDS: latanoprost 0.005% 2.5ml ophthalmic drops EACHEYE SCH (21:46)
[2019-08-21] VITALS (17 sets, daily range): BP systolic 87–142; BP diastolic 48–77
[2019-08-21] MEDS: ceFAZolin 1GM/D5W- ADD-VANTAGE 50 ML IV SCH ×2 (00:15→07:44)
[2019-08-21] MEDS: mineral oil/petrolatum ophthal oint EACHEYE SCH ×4 (02:00→19:55)
[2019-08-21 03:28] LABS: BASOPHILS % (AUTO) 0 % (0-1); EOSINOPHILS % (AUTO) 0 % (0-6); HEMATOCRIT 26.1 % (35.0-45.0); HEMOGLOBIN 8.9 g/dl (12.0-16.0); LYMPHOCYTES # (AUTO) 0.8 X10'3 (1.1-4.8); LYMPHOCYTES % (AUTO) 7.4 % (21-51); MEAN CORPUSCULAR HEMOGLOBIN 29.2 PG (27.0-31.0); MEAN CORPUSCULAR HGB CONC 34.3 g/dL (33.0-36.5); MEAN CORPUSCULAR VOLUME 85.2 FL (78-98); MEAN PLATELET VOLUME 7.3 FL (7.4-10.4); MONOCYTES # (AUTO) 0.6 X10'3 (0-0.9); MONOCYTES % (AUTO) 5.4 % (2-12); NEUTROPHILS # (AUTO) 9.3 X10'3 (1.8-7.7); NEUTROPHILS % (AUTO) 87.2 % (42-75); PLATELET COUNT 135 X10'3 (140-440); RED BLOOD COUNT 3.06 X10'6 (4.20-5.60); RED CELL DISTRIBUTION WIDTH 16.6 % (11.5-14.5); WHITE BLOOD COUNT 10.6 X10'3 (4.5-11.0)
[2019-08-21 03:45] LABS: ALBUMIN 3.3 G/DL (3.4-5.0); ANION GAP 3 (8-16); BLOOD UREA NITROGEN 14 MG/DL (7-18); BUN/CREATININE RATIO 21.9 (6.6-38.0); CHLORIDE 106 MMOL/L (99-107); CREATININE 0.64 MG/DL (0.40-0.90); GLUCOSE 214 MG/DL (70-104); MAGNESIUM 2.3 MG/DL (1.5-2.4); PHOSPHORUS 2.5 MG/DL (2.3-4.5); POTASSIUM 4.8 MMOL/L (3.5-5.1); SODIUM 139 MMOL/L (135-145); TOTAL CARBON DIOXIDE 30.2 MMOL/L (24-32); eGFR > 90 ML/MIN
[2019-08-21] MEDS: HYDROcodone/acetaminophen 10/325mg tab PO PRN (06:16)
--- NOTE | 2019-08-21 06:25 | NUR ---
Problems reprioritized. Patient report given, questions answered & plan of care reviewed.
[2019-08-21] MEDS: dexamethasone 4mg tablet PO SCH ×3 (07:38→20:41)
[2019-08-21] MEDS: gabapentin 300mg capsule PO SCH ×2 (07:38→12:20)
[2019-08-21] MEDS: sennosides/docusate sodium tablet PO SCH ×2 (07:38→20:40)
[2019-08-21] MEDS: aspirin 325mg tablet, delayed-release (Ecotrin) PO SCH (07:38)
[2019-08-21] MEDS: metoprolol tartrate 12.5mg (1/2 tablet) PO SCH ×2 (07:38→20:00)
[2019-08-21] MEDS: pantoprazole 40mg Tablet.DR PO SCH (07:38)
[2019-08-21] MEDS: atorvastatin 10mg tablet PO SCH (07:38)
[2019-08-21] MEDS ORDERED: magnesium 4gm in 100ml NS 100 ML IV PRN (08:10)
[2019-08-21] MEDS ORDERED: magnesium 2GM in 50ml NS 50 ML IV PRN (08:10)
[2019-08-21] MEDS ORDERED: furosemide 20 MG/2 ML vial IV ONE (08:10)
[2019-08-21] MEDS ORDERED: potassium Cl 20 mEq SR tablet PO PRN (08:10)
[2019-08-21] MEDS ORDERED: potassium Cl 20mEq/100mL bag 100 ML IV PRN (08:10)
--- NOTE | 2019-08-21 09:49 | NUR ---
CL has been removed. No issues. Pressure held, no bleeding, new dressing applied.
--- NOTE | 2019-08-21 11:10 | NUR ---
CABG Consult: Pt/family seen by REINA for written/verbal CABG/heart healthy diet eds w/ RD contact information provided. Pt refused vegetarian meals; reports is vegan and diabetic hx w/ currently too many carbs. Pt is having food brought from home by . REINA d/w RN regarding additional of carb controlled diet per MD approval given hx. Pt requests herbal tea BIDLD in addition to water as only drink preferences; dietary notified. Pt bringing in shake containing MVI from outside and herbal tea at breakfasts. Unable to provide ONS at this time given vegan diet preferences; pt is understanding. Addendum: 08/21/19 at [address] Amended: Links added.
--- NOTE | 2019-08-21 11:22 | NUR ---
Olivarez Catheter removed per MD orders. Will monitor for bladder distention if needed. Educated patient on need for them to urinate within the next few hours, and to let me know if they are feeling the urge to urinate without being able to do so.
--- NOTE | 2019-08-21 14:18 | NUR ---
Patient has been transferred from the CICU room 2006, to the ACCE unit room 308. I will continue care with the patient on the new unit. Patient's belongings and personal medications have also been brought to the ACCE unit. Patient has family at the bedside and is currently sitting up in bed visiting.
[2019-08-21] MEDS: insulin Lispro (HumaLOG) vial - multi-dose SQ SCH ×2 (14:26→19:15)
[2019-08-21] MEDS: potassium Cl 20 mEq SR tablet PO SCH (20:00)
[2019-08-21] MEDS: latanoprost 0.005% 2.5ml ophthalmic drops EACHEYE SCH (20:40)
[2019-08-21] MEDS: magnesium Cl slow-release 64mg tablet PO SCH (20:40)
[2019-08-21] MEDS: ESCITALOPRAM OXALATE 5 MG TABLET PO SCH (20:41)
[2019-08-22] MEDS: mineral oil/petrolatum ophthal oint EACHEYE SCH ×3 (00:40→14:25)
[2019-08-22 02:00] VITALS: BP 103/50
[2019-08-22] MEDS: HYDROcodone/acetaminophen 10/325mg tab PO PRN ×2 (03:55→20:35)
[2019-08-22 05:10] LABS: BASOPHILS % (AUTO) 0.3 % (0-1); EOSINOPHILS % (AUTO) 0.1 % (0-6); HEMATOCRIT 27.8 % (35.0-45.0); HEMOGLOBIN 9.5 g/dl (12.0-16.0); MEAN CORPUSCULAR HEMOGLOBIN 28.7 PG (27.0-31.0); MEAN CORPUSCULAR HGB CONC 34.1 g/dL (33.0-36.5); MEAN CORPUSCULAR VOLUME 84.3 FL (78-98); MEAN PLATELET VOLUME 7.1 FL (7.4-10.4); MONOCYTES # (AUTO) 0.6 X10'3 (0-0.9); MONOCYTES % (AUTO) 5.3 % (2-12); NEUTROPHILS # (AUTO) 9.6 X10'3 (1.8-7.7); NEUTROPHILS % (AUTO) 85.3 % (42-75); PLATELET COUNT 161 X10'3 (140-440); RED CELL DISTRIBUTION WIDTH 16.3 % (11.5-14.5); WHITE BLOOD COUNT 11.2 X10'3 (4.5-11.0)
[2019-08-22 05:28] LABS: ALBUMIN 3.1 G/DL (3.4-5.0); ANION GAP 5 (8-16); BLOOD UREA NITROGEN 14 MG/DL (7-18); BUN/CREATININE RATIO 23.7 (6.6-38.0); CALCIUM 8.4 MG/DL (8.5-10.1); CHLORIDE 102 MMOL/L (99-107); CREATININE 0.59 MG/DL (0.40-0.90); GLUCOSE 185 MG/DL (70-104); POTASSIUM 4.1 MMOL/L (3.5-5.1); SODIUM 138 MMOL/L (135-145); TOTAL CARBON DIOXIDE 31.2 MMOL/L (24-32); eGFR > 90 ML/MIN
[2019-08-22 06:00] VITALS: BP 106/56
--- NOTE | 2019-08-22 06:30 | NUR ---
Problems reprioritized. Patient report given, questions answered & plan of care reviewed with JOSE Mitchell.
--- NOTE | 2019-08-22 06:30 | NUR ---
Patient in room MED 308. I have received report from Courtney GARCIA and had the opportunity to ask questions and assume patient care.
[2019-08-22] MEDS: metoprolol tartrate 12.5mg (1/2 tablet) PO SCH ×2 (08:00→20:00)
[2019-08-22] MEDS ORDERED: atorvastatin 10mg tablet PO SCH (08:00)
[2019-08-22] MEDS: pantoprazole 40mg Tablet.DR PO SCH (08:08)
[2019-08-22] MEDS: magnesium Cl slow-release 64mg tablet PO SCH ×2 (08:08→20:35)
[2019-08-22] MEDS: dexamethasone 4mg tablet PO SCH ×3 (08:09→20:37)
[2019-08-22] MEDS: aspirin 81mg tablet.DR PO SCH (08:09)
[2019-08-22] MEDS: sennosides/docusate sodium tablet PO SCH ×2 (08:13→20:36)
[2019-08-22] MEDS: potassium Cl 20 mEq SR tablet PO SCH ×2 (08:13→20:37)
[2019-08-22 11:00] VITALS: BP 120/64
--- NOTE | 2019-08-22 13:00 | NUR ---
Pt has had family and friends brought in her food for her today so unable to cover Carbs so BG was corrected not nutritional.
[2019-08-22] MEDS: insulin Lispro (HumaLOG) vial - multi-dose SQ SCH ×3 (14:19→21:03)
[2019-08-22 15:00] VITALS: BP 105/58
[2019-08-22 18:00] VITALS: BP 112/54
--- NOTE | 2019-08-22 18:10 | NUR ---
Patient in room MED 308. I have received report from JOSE Mitchell and had the opportunity to ask questions and assume patient care.
--- NOTE | 2019-08-22 18:29 | NUR ---
Problems reprioritized. Patient report given, questions answered & plan of care reviewed with Jessi GARCIA.
[2019-08-22] MEDS: ESCITALOPRAM OXALATE 5 MG TABLET PO SCH (20:37)
[2019-08-22] MEDS: latanoprost 0.005% 2.5ml ophthalmic drops EACHEYE SCH (20:37)
[2019-08-22 22:00] VITALS: BP 100/44
[2019-08-23 02:00] VITALS: BP 93/53
[2019-08-23] MEDS: mineral oil/petrolatum ophthal oint EACHEYE SCH ×4 (02:00→20:31)
[2019-08-23 06:00] VITALS: BP 108/58
--- NOTE | 2019-08-23 06:07 | NUR ---
Problems reprioritized. Patient report given, questions answered & plan of care reviewed with JOSE Rueda.
[2019-08-23 06:08] LABS: BASOPHILS % (AUTO) 0.2 % (0-1); EOSINOPHILS % (AUTO) 0.1 % (0-6); HEMATOCRIT 28.5 % (35.0-45.0); HEMOGLOBIN 9.6 g/dl (12.0-16.0); LYMPHOCYTES # (AUTO) 1.1 X10'3 (1.1-4.8); LYMPHOCYTES % (AUTO) 12.2 % (21-51); MEAN CORPUSCULAR HEMOGLOBIN 28.5 PG (27.0-31.0); MEAN CORPUSCULAR HGB CONC 33.7 g/dL (33.0-36.5); MEAN CORPUSCULAR VOLUME 84.6 FL (78-98); MEAN PLATELET VOLUME 7.3 FL (7.4-10.4); MONOCYTES # (AUTO) 0.5 X10'3 (0-0.9); NEUTROPHILS # (AUTO) 7.3 X10'3 (1.8-7.7); NEUTROPHILS % (AUTO) 81.5 % (42-75); PLATELET COUNT 186 X10'3 (140-440); RED BLOOD COUNT 3.37 X10'6 (4.20-5.60); RED CELL DISTRIBUTION WIDTH 16.3 % (11.5-14.5); WHITE BLOOD COUNT 8.9 X10'3 (4.5-11.0)
[2019-08-23 06:19] LABS: ALBUMIN 2.9 G/DL (3.4-5.0); ANION GAP 4 (8-16); BLOOD UREA NITROGEN 13 MG/DL (7-18); BUN/CREATININE RATIO 23.2 (6.6-38.0); CALCIUM 8.2 MG/DL (8.5-10.1); CHLORIDE 104 MMOL/L (99-107); CREATININE 0.56 MG/DL (0.40-0.90); GLUCOSE 199 MG/DL (70-104); MAGNESIUM 2.1 MG/DL (1.5-2.4); POTASSIUM 4.5 MMOL/L (3.5-5.1); SODIUM 137 MMOL/L (135-145); TOTAL CARBON DIOXIDE 28.8 MMOL/L (24-32); eGFR > 90 ML/MIN
[2019-08-23] MEDS: pantoprazole 40mg Tablet.DR PO SCH (07:48)
[2019-08-23] MEDS: sennosides/docusate sodium tablet PO SCH ×2 (07:48→20:31)
[2019-08-23] MEDS: aspirin 81mg tablet.DR PO SCH (07:48)
[2019-08-23] MEDS: magnesium Cl slow-release 64mg tablet PO SCH ×2 (07:48→20:00)
[2019-08-23] MEDS: magnesium Cl slow-release 64mg tablet PO PRN ×2 (07:49→15:48)
[2019-08-23] MEDS: dexamethasone 4mg tablet PO SCH ×3 (07:49→20:39)
[2019-08-23] MEDS: insulin Lispro (HumaLOG) vial - multi-dose SQ SCH (07:53)
[2019-08-23] MEDS: potassium Cl 20 mEq SR tablet PO SCH ×2 (07:55→20:00)
[2019-08-23] MEDS: atorvastatin 20mg tablet PO SCH (07:55)
[2019-08-23] MEDS: metoprolol tartrate 12.5mg (1/2 tablet) PO SCH ×2 (07:56→20:00)
--- NOTE | 2019-08-23 09:15 | NUR ---
Problems reprioritized. Patient report given, questions answered & plan of care reviewed with AMPARO Jessica RN.
--- NOTE | 2019-08-23 09:19 | NUR ---
Patient in room MED 308. I have received report from JOSE Rueda and had the opportunity to ask questions and assume patient care.
--- NOTE | 2019-08-23 09:30 | NUR ---
INFORMED ESTEBAN CRABTREE ABOUT NURSING HOLDING LOPRESSOR FOR BORDERLINE BP AND HR.
[2019-08-23 11:00] VITALS: BP 110/58
--- NOTE | 2019-08-23 12:09 | NUR ---
Initial: Pt presented with CP and admitted for scheduled CABG. Pt now s/p CABG x 3 POD # 4. Pt on vegetarian CHO controlled diet documented with 0-25% PO intake and refusals of meals, however pt likely meeting nutrient needs with food and shakes brought in from home. Pt has RD contact information and has been encourage to reach out if she has any food preferences. LBM 08/22. No intervention warranted at this time. Will continue to follow. Recommendations: 1) Continue CHO controlled vegetarian diet 2) [place] food preferences; food from home okay 3) Routine bowel care 4) Wt per rx Addendum: 08/23/19 at [address] Amended: Links added.
[2019-08-23 15:00] VITALS: BP 102/56
[2019-08-23 18:00] VITALS: BP 93/65
--- NOTE | 2019-08-23 18:11 | NUR ---
Problems reprioritized. Patient report given, questions answered & plan of care reviewed with JOSE Guerra.
--- NOTE | 2019-08-23 18:15 | NUR ---
Patient in room MED 308. I have received report from Suri, and had the opportunity to ask questions and assume patient care.
--- NOTE | 2019-08-23 19:39 | NUR ---
The patient will be on her home medication for her diabetes mellitus. No lantus coverage.
[2019-08-23] MEDS: glipizide 5mg tablet PO SCH (20:31)
[2019-08-23] MEDS: metFORMIN 500mg tablet PO SCH (20:31)
[2019-08-23] MEDS: latanoprost 0.005% 2.5ml ophthalmic drops EACHEYE SCH (20:32)
[2019-08-23] MEDS: ESCITALOPRAM OXALATE 5 MG TABLET PO SCH (20:39)
[2019-08-23] MEDS: HYDROcodone/acetaminophen 10/325mg tab PO PRN (20:42)
--- NOTE | 2019-08-23 20:51 | NUR ---
Holding the lopressor, the patient's SBP in 100.
[2019-08-23 22:00] VITALS: BP 104/65
[2019-08-24 02:00] VITALS: BP 104/59
[2019-08-24] MEDS: mineral oil/petrolatum ophthal oint EACHEYE SCH ×2 (02:00→07:33)
[2019-08-24 06:11] LABS: BASOPHILS % (AUTO) 0.1 % (0-1); EOSINOPHILS % (AUTO) 0.6 % (0-6); HEMATOCRIT 30.8 % (35.0-45.0); HEMOGLOBIN 10.3 g/dl (12.0-16.0); LYMPHOCYTES # (AUTO) 1.1 X10'3 (1.1-4.8); LYMPHOCYTES % (AUTO) 13.6 % (21-51); MEAN CORPUSCULAR HEMOGLOBIN 28.2 PG (27.0-31.0); MEAN CORPUSCULAR HGB CONC 33.3 g/dL (33.0-36.5); MEAN CORPUSCULAR VOLUME 84.8 FL (78-98); MEAN PLATELET VOLUME 7.2 FL (7.4-10.4); MONOCYTES # (AUTO) 0.6 X10'3 (0-0.9); MONOCYTES % (AUTO) 7.4 % (2-12); NEUTROPHILS # (AUTO) 6.3 X10'3 (1.8-7.7); NEUTROPHILS % (AUTO) 78.3 % (42-75); PLATELET COUNT 230 X10'3 (140-440); RED BLOOD COUNT 3.63 X10'6 (4.20-5.60); RED CELL DISTRIBUTION WIDTH 16.5 % (11.5-14.5); WHITE BLOOD COUNT 8.1 X10'3 (4.5-11.0)
[2019-08-24 06:28] LABS: ANION GAP 7 (8-16); BLOOD UREA NITROGEN 12 MG/DL (7-18); BUN/CREATININE RATIO 19.4 (6.6-38.0); CALCIUM 8.3 MG/DL (8.5-10.1); CHLORIDE 103 MMOL/L (99-107); CREATININE 0.62 MG/DL (0.40-0.90); GLUCOSE 204 MG/DL (70-104); POTASSIUM 4.6 MMOL/L (3.5-5.1); SODIUM 139 MMOL/L (135-145); TOTAL CARBON DIOXIDE 29.3 MMOL/L (24-32); eGFR > 90 ML/MIN
--- NOTE | 2019-08-24 06:30 | NUR ---
Patient in room MED 308. I have received report from Mari GARCIA and had the opportunity to ask questions and assume patient care.
[2019-08-24 06:40] VITALS: BP 99/58
--- NOTE | 2019-08-24 06:52 | NUR ---
Problems reprioritized. Patient report given to Dangelo, questions answered & plan of care reviewed with . Addendum: 08/24/19 at 0653 by Mari Hope RN Report given to Kevan. Not Margarette.
--- NOTE | 2019-08-24 06:53 | NUR ---
Problems reprioritized. Patient report given to Kevan, questions answered & plan of care reviewed with .
[2019-08-24] MEDS: pantoprazole 40mg Tablet.DR PO SCH (07:33)
[2019-08-24] MEDS: aspirin 81mg tablet.DR PO SCH (07:34)
[2019-08-24] MEDS: metoprolol tartrate 12.5mg (1/2 tablet) PO SCH (07:34)
[2019-08-24] MEDS: magnesium Cl slow-release 64mg tablet PO SCH (07:35)
[2019-08-24] MEDS: metFORMIN 500mg tablet PO SCH (07:35)
[2019-08-24] MEDS: atorvastatin 20mg tablet PO SCH (07:35)
[2019-08-24] MEDS: glipizide 5mg tablet PO SCH (07:35)
[2019-08-24] MEDS: dexamethasone 4mg tablet PO SCH (07:35)
[2019-08-24] MEDS: potassium Cl 20 mEq SR tablet PO SCH (07:35)
[2019-08-24] MEDS: sennosides/docusate sodium tablet PO SCH (07:39)
--- NOTE | 2019-08-24 11:00 | NUR ---
Discharge instructions given to patient and at this time, verbalized understanding. IV removed, tele dc'd, belongings sent home. Escorted patient out to patient's husbands truck at this time via W/C, at side. Tolerated well getting into vehicle without event. Eager to go home. Aware of needing to have script of [place] filled at pharmacy of her choice.
== END 2019-08-24 11:00 | disposition home health service (06) | DRG 165 ==
LOC: ER 19:46 → ED HOLD 21:36 → MED 3N 08-19 01:15 → CICU 2S 08-19 12:34 → MED 3N 08-21 13:40
PROVIDERS: ADMIT Family Medicine; ATTEND Family Medicine
PROC: 05HY33Z Insertion of Infusion Device into Upper Vein, Percutaneous Approach (ICD-10-PCS; principal; 2019-08-18)
PROC: B54MZZA Ultrasonography of Right Upper Extremity Veins, Guidance (ICD-10-PCS; 2019-08-18)
PROC: 021009W Bypass Coronary Artery, One Artery from Aorta with Autologous Venous Tissue, Open Approach (ICD-10-PCS; 2019-08-19)
PROC: 02100Z8 Bypass Coronary Artery, One Artery from Right Internal Mammary, Open Approach (ICD-10-PCS; 2019-08-19)
PROC: 02100Z9 Bypass Coronary Artery, One Artery from Left Internal Mammary, Open Approach (ICD-10-PCS; 2019-08-19)
PROC: 5A1221Z Performance of Cardiac Output, Continuous (ICD-10-PCS; 2019-08-19)
PROC: 05B Upper Veins, Excision (ICD-10-PCS; 2019-08-19)
PROC: 30233N1 Transfusion of Nonautologous Red Blood Cells into Peripheral Vein, Percutaneous Approach (ICD-10-PCS; 2019-08-19)
PROC: B24BZZ4 Ultrasonography of Heart with Aorta, Transesophageal (ICD-10-PCS; 2019-08-19)
DX: I21.4 Non-ST elevation (NSTEMI) myocardial infarction (principal); C79.31 Secondary malignant neoplasm of brain; C43.9 Malignant melanoma of skin, unspecified; D49.6 Neoplasm of unspecified behavior of brain; E11.65 Type 2 diabetes mellitus with hyperglycemia; E11.9 Type 2 diabetes mellitus without complications; E78.5 Hyperlipidemia, unspecified; F41.9 Anxiety disorder, unspecified; I25.110 Atherosclerotic heart disease of native coronary artery with unstable angina pectoris; I25.2 Old myocardial infarction; Z91.013 Allergy to seafood; Z79.02 Long term (current) use of antithrombotics/antiplatelets; Z82.49 Family history of ischemic heart disease and other diseases of the circulatory system; Z85.820 Personal history of malignant melanoma of skin; Z85.841 Personal history of malignant neoplasm of brain
CPT/HCPCS: 0232T; 36415; 36430; 36600; 71045; 80048; 80053; 82330; 82435; 82803; 82947; 82948; 83036; 83735; 84100; 84132; 84295; 84484; 85014; 85018; 85025; 85347; 85384; 85576; 85610; 85730; 86885; 86900; 86901; 86920; 87081; 93005; 93312; 93325; 94002; 94668; 94760; 97116; 97161; 97530; 97535; 99285; A4618; A6258; A6402; A6449; A7000; A7048; C1713; C1751; C9113; G0378; J0610; J0690; J1265; J1644; J1815; J1940; J2001; J2060; J2250; J2270; J2440; J2704; J2720; J3370; J3475; J3480; J3490; J7030; J7040; J7050; J7120; P9016; P9045; P9047

== ENCOUNTER 2019-09-11 10:05 | Inpatient (IN) | payer MEDICAID ==
[~2019-09-11] VITALS: Ht 167.6 cm; Wt 105.8 kg
[2019-09-11] VITALS (16 sets, daily range): BP systolic 110–150; BP diastolic 51–88
[~2019-09-11 10:05] MED LIST changes: -CLOP75TA35 PO; +DEC4T PO; -METO-395 PO; -albumin (human) 25% 100 ML IV solution IV ONE; -aminocaproic acid 250 MG/1 ML inj. ONE; -heparin 10,000 units/1 ML INJ ONE; -papaverine 30 mg/ml 2ml inj. ONE
[2019-09-11] MEDS ORDERED: vancomycin/NS 1 GM ADD-VANTAGE 250 ML IV ONE (10:25)
[2019-09-11 10:35] LABS: BASOPHILS % (AUTO) 0.3 % (0-1); EOSINOPHILS % (AUTO) 0.8 % (0-6); HEMATOCRIT 30.5 % (35.0-45.0); LYMPHOCYTES # (AUTO) 0.3 X10'3 (1.1-4.8); LYMPHOCYTES % (AUTO) 4.9 % (21-51); MEAN CORPUSCULAR HEMOGLOBIN 28.3 PG (27.0-31.0); MEAN CORPUSCULAR HGB CONC 32.8 g/dL (33.0-36.5); MEAN CORPUSCULAR VOLUME 86.3 FL (78-98); MONOCYTES # (AUTO) 0.3 X10'3 (0-0.9); MONOCYTES % (AUTO) 5.8 % (2-12); NEUTROPHILS # (AUTO) 4.6 X10'3 (1.8-7.7); NEUTROPHILS % (AUTO) 88.2 % (42-75); PLATELET COUNT 286 X10'3 (140-440); RED BLOOD COUNT 3.53 X10'6 (4.20-5.60); RED CELL DISTRIBUTION WIDTH 17.6 % (11.5-14.5); WHITE BLOOD COUNT 5.3 X10'3 (4.5-11.0)
[2019-09-11 10:48] LABS: PARTIAL THROMBOPLASTIN TIME 23 SECONDS (22-32)
[2019-09-11 10:51] LABS: ALANINE AMINOTRANSFERASE 23 U/L (12-78); ALBUMIN 3.1 G/DL (3.4-5.0); ALBUMIN/GLOBULIN RATIO 0.9 (1.1-1.5); ALKALINE PHOSPHATASE 93 IU/L (46-116); ANION GAP 8 (8-16); ASPARTATE AMINO TRANSFERASE 14 U/L (10-37); BILIRUBIN,TOTAL 0.3 MG/DL (0.1-1.0); BLOOD UREA NITROGEN 16 MG/DL (7-18); BUN/CREATININE RATIO 27.1 (6.6-38.0); CALCIUM 8.7 MG/DL (8.5-10.1); CHLORIDE 99 MMOL/L (99-107); CREATININE 0.59 MG/DL (0.40-0.90); GLUCOSE 170 MG/DL (70-104); MAGNESIUM 1.8 MG/DL (1.5-2.4); SODIUM 134 MMOL/L (135-145); TOTAL PROTEIN 6.4 G/DL (6.4-8.2); eGFR > 90 ML/MIN
[2019-09-11] MEDS ORDERED: mag hydrox/Alum hydrox/simeth 30ml oral suspension PO PRN (13:20)
[2019-09-11] MEDS ORDERED: bisacodyl 10mg suppository rectal RC PRN (13:20)
[2019-09-11] MEDS ORDERED: ondansetron/PF 4mg/2ml inj IV PRN ×3 (13:20→17:10)
[2019-09-11] MEDS ORDERED: magnesium hydroxide 30ml (MOM) UD suspension PO PRN (13:20)
[2019-09-11] MEDS ORDERED: HYDROcodone/acetaminophen 10/325mg tab PO PRN (13:20)
[2019-09-11] MEDS ORDERED: acetaminophen 325mg tablet PO PRN ×2 (13:20)
[2019-09-11] MEDS ORDERED: magnesium 2GM in 50ml NS 50 ML IV PRN ×2 (13:20→14:00)
[2019-09-11] MEDS ORDERED: dextrose 50%-water 50ml dispensing syringe IV PRN ×2 (13:20)
[2019-09-11] MEDS ORDERED: dextrose ORAL solution 15 GM/59 ML bottle PO PRN ×2 (13:20)
[2019-09-11] MEDS ORDERED: magnesium 4gm in 100ml NS 100 ML IV PRN ×2 (13:20→14:00)
[2019-09-11] MEDS ORDERED: acetaminophen 650mg rectal suppository RC PRN (13:20)
[2019-09-11] MEDS ORDERED: potassium CL 10mEq/100ml bag 100 ML IV PRN ×2 (13:20)
[2019-09-11] MEDS ORDERED: potassium Cl 20 mEq SR tablet PO PRN ×3 (13:20→13:55)
[2019-09-11] MEDS ORDERED: morphine 2 MG/ML inj. syringe IV PRN ×3 (13:20→15:55)
[2019-09-11] MEDS ORDERED: magnesium Cl slow-release 64mg tablet PO PRN (13:20)
[2019-09-11] MEDS ORDERED: HYDROcodone/acetaminophen 5mg/325mg tablet PO PRN (13:20)
[2019-09-11] MEDS ORDERED: MESSAGE TO PHARMACY PO ONE (13:20)
[2019-09-11] MEDS ORDERED: glucagon, human recombinant 1mg kit SUBCUT PRN (13:20)
[2019-09-11] MEDS: normal saline 1000ml 1,000 ML IV SCH (13:55)
[2019-09-11] MEDS ORDERED: potassium Cl 20mEq/100mL bag 100 ML IV PRN (14:00)
[2019-09-11] MEDS ORDERED: VANCOmycin 1250MG/NS 250ml Bag 250 ML IV SCH (14:00)
--- NOTE | 2019-09-11 14:18 | NUR ---
Spoke with pharmacist Jb who stated they will re time the Vancomycin (see emar) since it was just administered 3 hrs ago.
--- NOTE | 2019-09-11 14:21 | NUR ---
Page sent to Dr Morgan at this time per clinical tech request to cancel Hgb A1C since test was recently done this month.
[2019-09-11] MEDS ORDERED: ringers solution, lacted 1,000 ML IV SCH (15:54)
[2019-09-11] MEDS ORDERED: ALBUTEROL INHALER 1 PUFF/90 MCG INHALER IH ONE (15:55)
[2019-09-11] MEDS ORDERED: acetaminophen 1,000mg/100ml IV 100 ML IV PRN (15:55)
[2019-09-11] MEDS ORDERED: meperidine/PF 25mg/ml syringe IV PRN (15:55)
[2019-09-11] MEDS ORDERED: proCHLORperazine 10 MG/2 ml inj IV PRN (15:55)
[2019-09-11] MEDS ORDERED: sevoflurane 250ml liquid IH ONE (15:55)
[2019-09-11] MEDS ORDERED: morphine 4 MG/ML inj SYRINge IV PRN (15:55)
[2019-09-11] MEDS ORDERED: HYDROmorphone inj. 0.5 MG/0.5 ML DISP.SYRIN IV PRN ×2 (15:55)
[2019-09-11] MEDS ORDERED: midazolam 2 mg/2 ml injection ONE (16:01)
[2019-09-11] MEDS ORDERED: cefazolin/dext.iso 2gm/100ml 100 ML IV ONE (16:05)
[2019-09-11 16:20] LABS: CLARITY,URINE CLEAR (Clear); COLOR,URINE STRAW (Yellow); GLUCOSE, URINE NEGATIVE (Neg); KETONES,URINE NEGATIVE (Neg); LEUKOCYTE ESTERASE ,URINE NEGATIVE (Neg); NITRITES, URINE NEGATIVE (Neg); OCCULT BLOOD,URINE NEGATIVE (Neg); PROTEIN,URINE NEGATIVE (Neg); UROBILINOGEN,URINE 0.2 E.U/dL (0.2-1.0)
[2019-09-11 16:22] LABS: UA COLLECTION TYPE CLN CATCH MIDSTREAM
[2019-09-11] MEDS ORDERED: propofol inj 20 ML IV ONE (16:37)
[2019-09-11] MEDS ORDERED: 0.9 % SODIUM CHLORIDE 10 ML VIAL ONE (16:37)
[2019-09-11] MEDS ORDERED: fentaNYL /PF 50mcg/ml 5ml ampule ONE (16:37)
[2019-09-11] MEDS ORDERED: rocuronium 10mg/ml inj IV ONE (16:37)
[2019-09-11] MEDS ORDERED: LIDOcaine 2% (20mg/ml) 5ml vial ONE (16:37)
[2019-09-11] MEDS ORDERED: ePHEDrine 50MG/ML INJ. ONE (16:38)
[2019-09-11] MEDS ORDERED: dexamethasone sod phosphate 4mg/ml inj. ONE (16:47)
[2019-09-11] MEDS ORDERED: ondansetron/PF 4mg/2ml inj ONE (16:47)
[2019-09-11] MEDS ORDERED: neostigmine methylsulfate 1 MG/ML 10ml vial ONE (16:59)
[2019-09-11] MEDS ORDERED: glycopyrrolate 0.2mg/ml inj ONE (17:00)
[2019-09-11] MEDS ORDERED: sugammadex 200mg/2ml injection IV ONE (17:10)
[2019-09-11] MEDS ORDERED: albuterol 2.5 MG/3 ML nebule NEB PRN (17:10)
--- NOTE | 2019-09-11 17:18 | NUR ---
Received from OR via , accompanied by Anesthesiologist DR BAUM and report given by Anesthesiolgist. PT IS AWAKE AND ALERT, MOVING EXT X 4, SKIN WARM AND PINK, STERNAL WOUND VAC AT 125MMHG, CONTINUOUS, NO C/O PAIN, SCD'S, PIV LEFT AC WITH LR 100ML/HR, RIGHT AC ARTLINE (WILL DISCONTINUE PRIOR TO TRANSFER TO THE FLOOR.
--- NOTE | 2019-09-11 17:58 | NUR ---
Report called to receiving nurse. Transferred via BED Belongings . Special Issues communicated to receiving nurse CRUZ GARCIA. PT IS AWAKE, ALERT, NO C/O PAIN, ART LINE REMOVED, PIV LEFT AC PATENT, [place] EMPTIED OF 125ML CLEAR YELLOW URINE, SCD'S ON, VSS, PT MEETS DISCHARGE CRITERIA.
--- NOTE | 2019-09-11 18:17 | NUR ---
Problems reprioritized. Patient report given, questions answered & plan of care reviewed with JOSE Campbell.
[2019-09-11] MEDS: docusate sod 100mg capsule PO SCH (20:00)
[2019-09-11] MEDS: K and/or MAG REPLACEMENT MC SCH (20:00)
[2019-09-11] MEDS: metoprolol tartrate 12.5mg (1/2 tablet) PO SCH (20:00)
[2019-09-11] MEDS: VANCOmycin 1250MG/NS 250ml Bag 250 ML IV SCH (20:03)
[2019-09-11] MEDS: heparin, porcine 5000 units/ml vial SQ SCH (20:14)
[2019-09-11] MEDS: ESCITALOPRAM OXALATE 5 MG TABLET PO SCH (22:13)
[2019-09-11] MEDS: dexamethasone 1mg tablet PO SCH (22:13)
[2019-09-11] MEDS: diphenhydrAMINE 25mg capsule PO PRN (22:13)
[2019-09-11] MEDS: latanoprost 0.005% 2.5ml ophthalmic drops EACHEYE SCH (22:14)
[2019-09-11] MEDS: insulin Lispro (HumaLOG) vial - multi-dose SQ SCH (23:16)
[2019-09-11] MEDS: insulin glargine (Lantus) pen - multi-dose SQ SCH (23:18)
[2019-09-11] MEDS: temazepam 15mg capsule PO PRN (23:19)
[2019-09-11] MEDS: cefepime 1GM in D5W 50mL 50 ML IV SCH (23:34)
[2019-09-12] MEDS: VANCOmycin 1250MG/NS 250ml Bag 250 ML IV SCH ×2 (02:07→10:43)
[2019-09-12 04:00] VITALS: BP 118/66
[2019-09-12] MEDS: normal saline 1000ml 1,000 ML IV SCH (04:30)
[2019-09-12] MEDS: mupirocin 2% nasal ointment 1gm UD NS SCH ×2 (05:19→07:52)
[2019-09-12 05:42] LABS: BASOPHILS % (AUTO) 0.1 % (0-1); EOSINOPHILS % (AUTO) 0.1 % (0-6); HEMATOCRIT 28.5 % (35.0-45.0); HEMOGLOBIN 9.3 g/dl (12.0-16.0); LYMPHOCYTES # (AUTO) 0.2 X10'3 (1.1-4.8); LYMPHOCYTES % (AUTO) 6.5 % (21-51); MEAN CORPUSCULAR HEMOGLOBIN 28.3 PG (27.0-31.0); MEAN CORPUSCULAR HGB CONC 32.6 g/dL (33.0-36.5); MONOCYTES # (AUTO) 0.2 X10'3 (0-0.9); MONOCYTES % (AUTO) 5.3 % (2-12); NEUTROPHILS # (AUTO) 3.1 X10'3 (1.8-7.7); PLATELET COUNT 224 X10'3 (140-440); RED BLOOD COUNT 3.28 X10'6 (4.20-5.60); RED CELL DISTRIBUTION WIDTH 18.3 % (11.5-14.5); WHITE BLOOD COUNT 3.5 X10'3 (4.5-11.0)
[2019-09-12] MEDS ORDERED: MESSAGE TO NURSING PO ONE ×4 (06:00→10:00)
[2019-09-12 06:21] LABS: ANION GAP 6 (8-16); BILIRUBIN,TOTAL 0.4 MG/DL (0.1-1.0); BLOOD UREA NITROGEN 9 MG/DL (7-18); BUN/CREATININE RATIO 14.1 (6.6-38.0); CALCIUM 8.6 MG/DL (8.5-10.1); CHLORIDE 101 MMOL/L (99-107); CREATININE 0.64 MG/DL (0.40-0.90); GLUCOSE 239 MG/DL (70-104); MAGNESIUM 2.2 MG/DL (1.5-2.4); PHOSPHORUS 3.6 MG/DL (2.3-4.5); POTASSIUM 4.4 MMOL/L (3.5-5.1); SODIUM 135 MMOL/L (135-145); TOTAL PROTEIN 5.8 G/DL (6.4-8.2); eGFR > 90 ML/MIN
[2019-09-12 06:22] LABS: ALANINE AMINOTRANSFERASE 32 U/L (12-78); ALBUMIN 2.6 G/DL (3.4-5.0); ALBUMIN/GLOBULIN RATIO 0.8 (1.1-1.5); ALKALINE PHOSPHATASE 85 IU/L (46-116); ASPARTATE AMINO TRANSFERASE 15 U/L (10-37)
--- NOTE | 2019-09-12 06:56 | NUR ---
Patient in room [facility] 347. I have received report from JOSE Campbell and had the opportunity to ask questions and assume patient care.
--- NOTE | 2019-09-12 06:59 | NUR ---
Problems reprioritized. Patient report given, questions answered & plan of care reviewed with VITALY. Addendum: 09/12/19 at 0700 by Leland Reynolds RN Amended: Links added.
[2019-09-12 07:28] VITALS: BP 127/61
[2019-09-12] MEDS: aspirin 81mg tablet.DR PO SCH (07:51)
[2019-09-12] MEDS: dexamethasone 4mg tablet PO SCH (07:51)
[2019-09-12] MEDS: vitamin D (cholecalciferol) 1,000 unit tablet PO SCH (07:51)
[2019-09-12] MEDS: docusate sod 100mg capsule PO SCH ×2 (07:51→20:05)
[2019-09-12] MEDS: heparin, porcine 5000 units/ml vial SQ SCH ×2 (07:52→20:07)
[2019-09-12] MEDS: cefepime 1GM in D5W 50mL 50 ML IV SCH ×4 (07:52→22:46)
[2019-09-12] MEDS: metoprolol tartrate 12.5mg (1/2 tablet) PO SCH ×2 (07:57→20:00)
[2019-09-12] MEDS: insulin Lispro (HumaLOG) vial - multi-dose SQ SCH ×3 (07:57→18:34)
[2019-09-12] MEDS ORDERED: IRON CARBONYL PO SCH (08:00)
[2019-09-12] MEDS ORDERED: ASCORBIC ACID PO SCH (08:00)
[2019-09-12] MEDS ORDERED: dexamethasone 4mg tablet PO SCH (08:00)
[2019-09-12] MEDS: K and/or MAG REPLACEMENT MC SCH ×2 (08:00→20:00)
--- NOTE | 2019-09-12 09:41 | NUR ---
WOUND VAC EDUCATION PROVIDED BY WOUND CARE 1. Patient instructed to call the Wound Center or their Home Health Agency immediately if: * They notice a change in the color or amount of the fluid in the canister. * Their wound looks more red than usual or has a foul smell. * The skin around their wound looks reddened or irritated. * The dressing feels loose or appears to be loose. * They experience any increase or changes in their pain. * The alarm will not turn off. 2. Patient instructed that they should not be disconnected from suction for more than 2 hours at a time. * If they are not able to get the suction back on, they need to remove the dressing and take all of the foam out of the wound. * Then moisten sterile gauze with normal saline and place on/in the wound. * Change the dressing once a day until arrangements have been made to replace the wound vac dressing. 3. Patient instructed to turn the wound vac machine OFF and call 911 or go to the ED immediately if their canister fills rapidly with blood. 4. If any of these occur while in the hospital tell a nurse immediately. Addendum: 09/12/19 at 0941 by Rodger Forbes RN Amended: Links added.
--- NOTE | 2019-09-12 10:01 | NUR ---
FC DC'd at 0950 by JOSE Eastman. Pt tolerated well. Will encourage voiding Q1-2 hours and will monitor for retention.
[2019-09-12 12:23] VITALS: BP 118/87
--- NOTE | 2019-09-12 12:34 | NUR ---
PIC LINE EXP: 06/12/20 REF: [id number] LOT: [id number]
[2019-09-12] MEDS ORDERED: VANCOMYCIN LEVEL IV ONE (17:30)
[2019-09-12 18:00] VITALS: BP 122/72
--- NOTE | 2019-09-12 18:26 | NUR ---
Received report from JOSE Schaffer. Patient is awake and alert on room air, in no apparent distress. Sitting up in chair, watching TV. Call light and items of frequent use within reach. Will continue to monitor.
--- NOTE | 2019-09-12 18:40 | NUR ---
Problems reprioritized. Patient report given, questions answered & plan of care reviewed with JOSE Arias.
[2019-09-12] MEDS ORDERED: lactobacillus rhamnosus 10,000 MMU CELLS/CAPSULE PO SCH (20:00)
[2019-09-12] MEDS: ESCITALOPRAM OXALATE 5 MG TABLET PO SCH (20:05)
[2019-09-12] MEDS: dexamethasone 1mg tablet PO SCH (20:05)
[2019-09-12] MEDS: latanoprost 0.005% 2.5ml ophthalmic drops EACHEYE SCH (20:06)
[2019-09-12] MEDS ORDERED: latanoprost 0.005% 2.5ml ophthalmic drops EACHEYE SCH (21:00)
[2019-09-12] MEDS ORDERED: ESCITALOPRAM OXALATE PO SCH (21:00)
[2019-09-12] MEDS: diphenhydrAMINE 25mg capsule PO PRN (21:09)
[2019-09-12] MEDS: temazepam 15mg capsule PO PRN (21:10)
--- NOTE | 2019-09-12 21:39 | NUR ---
In to check pts accucheck which is 112. Pt would like her blood sugar to be checked again in 30min to 1hr and give lantus then, as she feels uncomfortable taking it at this time. Primary nurse notified Addendum: 09/12/19 at 2141 by Gypsy Escamilla RN Amended: Links added.
[2019-09-12] MEDS ORDERED: temazepam 15mg capsule PO ONE (22:20)
[2019-09-12] MEDS: insulin glargine (Lantus) pen - multi-dose SQ SCH (22:47)
[2019-09-13] VITALS: BP 107/60
[2019-09-13 05:56] LABS: BASOPHILS % (AUTO) 0.6 % (0-1); EOSINOPHILS % (AUTO) 1.7 % (0-6); HEMATOCRIT 25.7 % (35.0-45.0); HEMOGLOBIN 8.6 g/dl (12.0-16.0); LYMPHOCYTES # (AUTO) 0.4 X10'3 (1.1-4.8); LYMPHOCYTES % (AUTO) 16.6 % (21-51); MEAN CORPUSCULAR HEMOGLOBIN 28.6 PG (27.0-31.0); MEAN CORPUSCULAR HGB CONC 33.2 g/dL (33.0-36.5); MEAN CORPUSCULAR VOLUME 86.2 FL (78-98); MEAN PLATELET VOLUME 6.5 FL (7.4-10.4); MONOCYTES # (AUTO) 0.2 X10'3 (0-0.9); MONOCYTES % (AUTO) 8.6 % (2-12); NEUTROPHILS # (AUTO) 1.8 X10'3 (1.8-7.7); NEUTROPHILS % (AUTO) 72.5 % (42-75); PLATELET COUNT 138 X10'3 (140-440); RED BLOOD COUNT 2.99 X10'6 (4.20-5.60); RED CELL DISTRIBUTION WIDTH 18.2 % (11.5-14.5); WHITE BLOOD COUNT 2.5 X10'3 (4.5-11.0)
[2019-09-13 06:21] LABS: ALANINE AMINOTRANSFERASE 30 U/L (12-78); ALBUMIN 2.4 G/DL (3.4-5.0); ALBUMIN/GLOBULIN RATIO 0.8 (1.1-1.5); ALKALINE PHOSPHATASE 75 IU/L (46-116); ANION GAP 5 (8-16); ASPARTATE AMINO TRANSFERASE 16 U/L (10-37); BILIRUBIN,TOTAL 0.3 MG/DL (0.1-1.0); BLOOD UREA NITROGEN 12 MG/DL (7-18); BUN/CREATININE RATIO 23.1 (6.6-38.0); CALCIUM 8.2 MG/DL (8.5-10.1); CHLORIDE 103 MMOL/L (99-107); CREATININE 0.52 MG/DL (0.40-0.90); GLUCOSE 159 MG/DL (70-104); MAGNESIUM 2.1 MG/DL (1.5-2.4); PHOSPHORUS 3.7 MG/DL (2.3-4.5); POTASSIUM 3.8 MMOL/L (3.5-5.1); SODIUM 136 MMOL/L (135-145); TOTAL CARBON DIOXIDE 27.9 MMOL/L (24-32); TOTAL PROTEIN 5.4 G/DL (6.4-8.2); eGFR > 90 ML/MIN
--- NOTE | 2019-09-13 06:22 | NUR ---
Problems reprioritized. Patient report given, questions answered & plan of care reviewed with JOSE Bird.
--- NOTE | 2019-09-13 06:42 | NUR ---
Patient in room [facility] 347. I have received report from JOSE Arias and had the opportunity to ask questions and assume patient care.
[2019-09-13 07:11] LABS: ANISOCYTOSIS 2+; PLATELET ESTIMATE DECREASED; TOTAL CELLS COUNTED 100
[2019-09-13] MEDS: cefepime 1GM in D5W 50mL 50 ML IV SCH (07:23)
[2019-09-13] MEDS: vitamin D (cholecalciferol) 1,000 unit tablet PO SCH (07:28)
[2019-09-13] MEDS: aspirin 81mg tablet.DR PO SCH (07:28)
[2019-09-13] MEDS: docusate sod 100mg capsule PO SCH (07:28)
[2019-09-13] MEDS: dexamethasone 4mg tablet PO SCH (07:28)
[2019-09-13] MEDS: heparin, porcine 5000 units/ml vial SQ SCH (07:29)
[2019-09-13] MEDS: metoprolol tartrate 12.5mg (1/2 tablet) PO SCH (07:30)
[2019-09-13 07:46] VITALS: BP 123/64
[2019-09-13] MEDS: insulin Lispro (HumaLOG) vial - multi-dose SQ SCH (08:54)
[2019-09-13] MEDS ORDERED: levoFLOXACIN 750MG TABLET PO SCH (11:00)
[2019-09-13] MEDS ORDERED: METO25TA6 PO (11:59)
[2019-09-13 13:06] VITALS: BP 106/72
--- NOTE | 2019-09-13 14:24 | NUR ---
Pt D/C'd home in stable conditions. PIV and Picc line removed. Unable to take wound picture due to wound Vac dressing. Pt education given about wound Vac care, Medication, and discharge instructions. Pt was escorted to main lobby walking. left the hospital via private vehicle accompanied by family member.
== END 2019-09-13 13:20 | disposition home health service (06) | DRG 721 ==
LOC: ER 10:06 → ED HOLD 13:17 → SUR 3N 15:01
PROVIDERS: ADMIT Family Medicine; ATTEND Family Medicine
PROC: 0JB60ZZ Excision of Chest Subcutaneous Tissue and Fascia, Open Approach (ICD-10-PCS; principal; 2019-09-11 16:00)
DX: T81.41XA Infection following a procedure, superficial incisional surgical site, initial encounter (principal); C78.00 Secondary malignant neoplasm of unspecified lung; C79.31 Secondary malignant neoplasm of brain; C43.9 Malignant melanoma of skin, unspecified; L03.313 Cellulitis of chest wall; B96.1 Klebsiella pneumoniae [K. pneumoniae] as the cause of diseases classified elsewhere; I25.10 Atherosclerotic heart disease of native coronary artery without angina pectoris; Y84.0 Cardiac catheterization as the cause of abnormal reaction of the patient, or of later complication, without mention of misadventure at the time of the procedure; Y71.3 Surgical instruments, materials and cardiovascular devices (including sutures) associated with adverse incidents; E11.9 Type 2 diabetes mellitus without complications; E78.5 Hyperlipidemia, unspecified; I10 Essential (primary) hypertension; T38.0X5A Adverse effect of glucocorticoids and synthetic analogues, initial encounter; F32.9 Major depressive disorder, single episode, unspecified; T81.31XA Disruption of external operation (surgical) wound, not elsewhere classified, initial encounter; I25.2 Old myocardial infarction; Y92.89 Other specified places as the place of occurrence of the external cause; Z79.84 Long term (current) use of oral hypoglycemic drugs; Z79.899 Other long term (current) drug therapy; Z82.49 Family history of ischemic heart disease and other diseases of the circulatory system; Z83.3 Family history of diabetes mellitus; Z95.1 Presence of aortocoronary bypass graft; Z98.891 History of uterine scar from previous surgery; Z91.013 Allergy to seafood
CPT/HCPCS: 36415; 36573; 71045; 76937; 80053; 81003; 82948; 83605; 83735; 84100; 84145; 85025; 85610; 85730; 86885; 86900; 86901; 87040; 87070; 87075; 87077; 87081; 87102; 87186; 93005; 94760; 97110; 97161; 97530; 99285; A4618; A6550; A7000; C9399; G0378; J0692; J1100; J1644; J1815; J2001; J2250; J2405; J2704; J2710; J3010; J3370; J3490; J7030; J7050; J7120; J8540; Q0163

== ENCOUNTER 2019-09-17 14:05 | Outpatient (CLI) | payer MEDICAID ==
[~2019-09-17 14:05] MED LIST changes: -ATOR-2 PO; +METO25TA6 PO
== END 2019-09-17 14:42 | disposition home or self-care (01) ==
LOC: WOUND CARE 14:05
PROVIDERS: ATTEND Nurse Practitioner
DX: T81.40XA Infection following a procedure, unspecified, initial encounter (principal); E11.622 Type 2 diabetes mellitus with other skin ulcer; L98.492 Non-pressure chronic ulcer of skin of other sites with fat layer exposed; I25.10 Atherosclerotic heart disease of native coronary artery without angina pectoris; E11.39 Type 2 diabetes mellitus with other diabetic ophthalmic complication; H42 Glaucoma in diseases classified elsewhere; I10 Essential (primary) hypertension; E78.5 Hyperlipidemia, unspecified; I25.2 Old myocardial infarction; E11.65 Type 2 diabetes mellitus with hyperglycemia; F32.9 Major depressive disorder, single episode, unspecified; F41.9 Anxiety disorder, unspecified; Z79.84 Long term (current) use of oral hypoglycemic drugs; Z85.820 Personal history of malignant melanoma of skin; Z79.899 Other long term (current) drug therapy; Z95.1 Presence of aortocoronary bypass graft; Z85.841 Personal history of malignant neoplasm of brain; Z85.118 Personal history of other malignant neoplasm of bronchus and lung; Z79.02 Long term (current) use of antithrombotics/antiplatelets; Z79.01 Long term (current) use of anticoagulants; Z98.890 Other specified postprocedural states; Y92.89 Other specified places as the place of occurrence of the external cause; Y83.8 Other surgical procedures as the cause of abnormal reaction of the patient, or of later complication, without mention of misadventure at the time of the procedure
CPT/HCPCS: G0463

== ENCOUNTER 2019-09-28 10:25 | Day surgery (SDC) | payer MEDICAID ==
[2019-09-28] MEDS ORDERED: LIDOcaine 2% 5ml jelly ONE (10:49)
== END 2019-09-28 11:55 | disposition home or self-care (01) ==
LOC: WOUND CARE 10:25
PROVIDERS: ATTEND Nurse Practitioner
DX: T81.40XD Infection following a procedure, unspecified, subsequent encounter (principal); E11.622 Type 2 diabetes mellitus with other skin ulcer; L98.492 Non-pressure chronic ulcer of skin of other sites with fat layer exposed; I25.10 Atherosclerotic heart disease of native coronary artery without angina pectoris; E11.39 Type 2 diabetes mellitus with other diabetic ophthalmic complication; H42 Glaucoma in diseases classified elsewhere; I10 Essential (primary) hypertension; E78.5 Hyperlipidemia, unspecified; I25.2 Old myocardial infarction; E11.65 Type 2 diabetes mellitus with hyperglycemia; F32.9 Major depressive disorder, single episode, unspecified; F41.9 Anxiety disorder, unspecified; Z79.84 Long term (current) use of oral hypoglycemic drugs; Z85.820 Personal history of malignant melanoma of skin; Z79.899 Other long term (current) drug therapy; Z95.1 Presence of aortocoronary bypass graft; Z85.841 Personal history of malignant neoplasm of brain; Z85.118 Personal history of other malignant neoplasm of bronchus and lung; Z79.02 Long term (current) use of antithrombotics/antiplatelets; Z79.01 Long term (current) use of anticoagulants; Z98.890 Other specified postprocedural states; Y83.8 Other surgical procedures as the cause of abnormal reaction of the patient, or of later complication, without mention of misadventure at the time of the procedure
CPT/HCPCS: 36416; 82948; 97597

== ENCOUNTER 2019-10-03 10:14 | Outpatient (CLI) | payer MEDICAID ==
[2019-10-03] MEDS ORDERED: LIDOcaine 2% 5ml jelly ONE (10:34)
== END 2019-10-03 12:32 | disposition home or self-care (01) ==
LOC: WOUND CARE 10:14 → EDSTATUS 10:20 → WOUND CARE 12:32
PROVIDERS: ATTEND Nurse Practitioner
DX: T81.40XD Infection following a procedure, unspecified, subsequent encounter (principal); E11.622 Type 2 diabetes mellitus with other skin ulcer; L98.492 Non-pressure chronic ulcer of skin of other sites with fat layer exposed; I25.10 Atherosclerotic heart disease of native coronary artery without angina pectoris; E11.39 Type 2 diabetes mellitus with other diabetic ophthalmic complication; H42 Glaucoma in diseases classified elsewhere; I10 Essential (primary) hypertension; E78.5 Hyperlipidemia, unspecified; I25.2 Old myocardial infarction; E11.65 Type 2 diabetes mellitus with hyperglycemia; F32.9 Major depressive disorder, single episode, unspecified; F41.9 Anxiety disorder, unspecified; Z79.84 Long term (current) use of oral hypoglycemic drugs; Z85.820 Personal history of malignant melanoma of skin; Z79.899 Other long term (current) drug therapy; Z95.1 Presence of aortocoronary bypass graft; Z85.841 Personal history of malignant neoplasm of brain; Z85.118 Personal history of other malignant neoplasm of bronchus and lung; Z79.02 Long term (current) use of antithrombotics/antiplatelets; Z79.01 Long term (current) use of anticoagulants; Z98.890 Other specified postprocedural states; Y83.8 Other surgical procedures as the cause of abnormal reaction of the patient, or of later complication, without mention of misadventure at the time of the procedure
CPT/HCPCS: 36416; 82948; 97605

== ENCOUNTER 2019-10-09 10:50 | Outpatient (CLI) | payer MEDICAID ==
[2019-10-09] MEDS ORDERED: SANTYL 250 UNIT/GM TP ONE (12:55)
== END 2019-10-09 13:10 | disposition home or self-care (01) ==
LOC: WOUND CARE 10:50
PROVIDERS: ATTEND Surgery
DX: T81.40XD Infection following a procedure, unspecified, subsequent encounter (principal); E11.622 Type 2 diabetes mellitus with other skin ulcer; L98.492 Non-pressure chronic ulcer of skin of other sites with fat layer exposed; I25.10 Atherosclerotic heart disease of native coronary artery without angina pectoris; E11.39 Type 2 diabetes mellitus with other diabetic ophthalmic complication; H42 Glaucoma in diseases classified elsewhere; I10 Essential (primary) hypertension; E78.5 Hyperlipidemia, unspecified; I25.2 Old myocardial infarction; E11.65 Type 2 diabetes mellitus with hyperglycemia; F32.9 Major depressive disorder, single episode, unspecified; F41.9 Anxiety disorder, unspecified; Z79.84 Long term (current) use of oral hypoglycemic drugs; Z85.820 Personal history of malignant melanoma of skin; Z79.899 Other long term (current) drug therapy; Z95.1 Presence of aortocoronary bypass graft; Z85.841 Personal history of malignant neoplasm of brain; Z85.118 Personal history of other malignant neoplasm of bronchus and lung; Z79.02 Long term (current) use of antithrombotics/antiplatelets; Z79.01 Long term (current) use of anticoagulants; Z98.890 Other specified postprocedural states; Y83.8 Other surgical procedures as the cause of abnormal reaction of the patient, or of later complication, without mention of misadventure at the time of the procedure
CPT/HCPCS: 36416; 82948; 97605

== ENCOUNTER 2019-10-16 13:07 | Day surgery (SDC) | payer MEDICAID ==
[2019-10-16] MEDS ORDERED: LIDOcaine 2% 5ml jelly ONE ×2 (13:20)
[2019-10-16] MEDS ORDERED: COLLAGENASE TP ONE (13:25)
[2019-10-16] MEDS ORDERED: [UNRECOGNIZED DRUG - OTHER] TP ONE (13:25)
== END 2019-10-16 14:24 | disposition home or self-care (01) ==
LOC: WOUND CARE 13:07
PROVIDERS: ATTEND Surgery
DX: T81.40XD Infection following a procedure, unspecified, subsequent encounter (principal); E11.622 Type 2 diabetes mellitus with other skin ulcer; L98.492 Non-pressure chronic ulcer of skin of other sites with fat layer exposed; I25.10 Atherosclerotic heart disease of native coronary artery without angina pectoris; E11.39 Type 2 diabetes mellitus with other diabetic ophthalmic complication; H42 Glaucoma in diseases classified elsewhere; I10 Essential (primary) hypertension; E78.5 Hyperlipidemia, unspecified; I25.2 Old myocardial infarction; E11.65 Type 2 diabetes mellitus with hyperglycemia; F32.9 Major depressive disorder, single episode, unspecified; F41.9 Anxiety disorder, unspecified; Z79.84 Long term (current) use of oral hypoglycemic drugs; Z85.820 Personal history of malignant melanoma of skin; Z79.899 Other long term (current) drug therapy; Z95.1 Presence of aortocoronary bypass graft; Z85.841 Personal history of malignant neoplasm of brain; Z85.118 Personal history of other malignant neoplasm of bronchus and lung; Z79.02 Long term (current) use of antithrombotics/antiplatelets; Z79.01 Long term (current) use of anticoagulants; Z98.890 Other specified postprocedural states; Y83.8 Other surgical procedures as the cause of abnormal reaction of the patient, or of later complication, without mention of misadventure at the time of the procedure
CPT/HCPCS: 36416; 82948; 97597; 97598

== ENCOUNTER 2019-10-26 10:10 | Day surgery (SDC) | payer MEDICAID ==
[~2019-10-26 10:10] MED LIST changes: +LIDOcaine 2% 5ml jelly ONE
[2019-10-26] MEDS ORDERED: LIDOcaine 2% 5ml jelly ONE (10:12)
[2019-10-26] MEDS ORDERED: TYPE IN GENERIC & BRAND NAME OF PATIENT MED STRENGTH & FORM TP ONE (10:30)
== END 2019-10-26 11:16 | disposition home or self-care (01) ==
LOC: WOUND CARE 10:10
PROVIDERS: ATTEND Surgery
DX: T81.40XD Infection following a procedure, unspecified, subsequent encounter (principal); E11.622 Type 2 diabetes mellitus with other skin ulcer; L98.492 Non-pressure chronic ulcer of skin of other sites with fat layer exposed; I25.10 Atherosclerotic heart disease of native coronary artery without angina pectoris; E11.39 Type 2 diabetes mellitus with other diabetic ophthalmic complication; H42 Glaucoma in diseases classified elsewhere; I10 Essential (primary) hypertension; E78.5 Hyperlipidemia, unspecified; I25.2 Old myocardial infarction; E11.65 Type 2 diabetes mellitus with hyperglycemia; F32.9 Major depressive disorder, single episode, unspecified; F41.9 Anxiety disorder, unspecified; Z79.84 Long term (current) use of oral hypoglycemic drugs; Z85.820 Personal history of malignant melanoma of skin; Z79.899 Other long term (current) drug therapy; Z95.1 Presence of aortocoronary bypass graft; Z85.841 Personal history of malignant neoplasm of brain; Z85.118 Personal history of other malignant neoplasm of bronchus and lung; Z79.02 Long term (current) use of antithrombotics/antiplatelets; Z79.01 Long term (current) use of anticoagulants; Z98.890 Other specified postprocedural states; Y83.8 Other surgical procedures as the cause of abnormal reaction of the patient, or of later complication, without mention of misadventure at the time of the procedure
CPT/HCPCS: 36416; 82948; 97597; 97598

== ENCOUNTER 2019-11-09 10:49 | Day surgery (SDC) | payer MEDICAID ==
[~2019-11-09 10:49] MED LIST changes: -LIDOcaine 2% 5ml jelly ONE
[2019-11-09] MEDS ORDERED: LIDOcaine 2% 5ml jelly ONE (11:00)
[2019-11-09] MEDS ORDERED: COLLAGENASE TOP SCH (12:00)
== END 2019-11-09 12:20 | disposition home or self-care (01) ==
LOC: WOUND CARE 10:49
PROVIDERS: ATTEND Nurse Practitioner
DX: T81.89XD Other complications of procedures, not elsewhere classified, subsequent encounter (principal); E11.622 Type 2 diabetes mellitus with other skin ulcer; L98.492 Non-pressure chronic ulcer of skin of other sites with fat layer exposed; I25.10 Atherosclerotic heart disease of native coronary artery without angina pectoris; E11.39 Type 2 diabetes mellitus with other diabetic ophthalmic complication; H42 Glaucoma in diseases classified elsewhere; I10 Essential (primary) hypertension; E78.5 Hyperlipidemia, unspecified; I25.2 Old myocardial infarction; E11.65 Type 2 diabetes mellitus with hyperglycemia; F32.9 Major depressive disorder, single episode, unspecified; F41.9 Anxiety disorder, unspecified; Z79.84 Long term (current) use of oral hypoglycemic drugs; Z85.820 Personal history of malignant melanoma of skin; Z79.899 Other long term (current) drug therapy; Z95.1 Presence of aortocoronary bypass graft; Z85.841 Personal history of malignant neoplasm of brain; Z85.118 Personal history of other malignant neoplasm of bronchus and lung; Z79.02 Long term (current) use of antithrombotics/antiplatelets; Z79.01 Long term (current) use of anticoagulants; Z98.890 Other specified postprocedural states; Y83.8 Other surgical procedures as the cause of abnormal reaction of the patient, or of later complication, without mention of misadventure at the time of the procedure
CPT/HCPCS: 36416; 82948; 97597

== ENCOUNTER 2019-11-15 10:40 | Day surgery (SDC) | payer MEDICAID ==
[2019-11-15] MEDS ORDERED: LIDOcaine 2% 5ml jelly ONE ×2 (10:56)
== END 2019-11-15 12:00 | disposition home or self-care (01) ==
LOC: WOUND CARE 10:40
PROVIDERS: ATTEND Nurse Practitioner
DX: T81.40XD Infection following a procedure, unspecified, subsequent encounter (principal); E11.622 Type 2 diabetes mellitus with other skin ulcer; L98.492 Non-pressure chronic ulcer of skin of other sites with fat layer exposed; I25.10 Atherosclerotic heart disease of native coronary artery without angina pectoris; E11.39 Type 2 diabetes mellitus with other diabetic ophthalmic complication; H42 Glaucoma in diseases classified elsewhere; I10 Essential (primary) hypertension; E78.5 Hyperlipidemia, unspecified; I25.2 Old myocardial infarction; E11.65 Type 2 diabetes mellitus with hyperglycemia; F32.9 Major depressive disorder, single episode, unspecified; F41.9 Anxiety disorder, unspecified; Z79.84 Long term (current) use of oral hypoglycemic drugs; Z85.820 Personal history of malignant melanoma of skin; Z79.899 Other long term (current) drug therapy; Z95.1 Presence of aortocoronary bypass graft; Z85.841 Personal history of malignant neoplasm of brain; Z85.118 Personal history of other malignant neoplasm of bronchus and lung; Z79.02 Long term (current) use of antithrombotics/antiplatelets; Z79.01 Long term (current) use of anticoagulants; Z98.890 Other specified postprocedural states; Y83.8 Other surgical procedures as the cause of abnormal reaction of the patient, or of later complication, without mention of misadventure at the time of the procedure
CPT/HCPCS: 36416; 82948; 97597

== ENCOUNTER 2019-11-23 10:30 | Day surgery (SDC) | payer MEDICAID ==
[2019-11-23] MEDS ORDERED: LIDOcaine 2% 5ml jelly ONE (10:55)
== END 2019-11-23 11:40 | disposition home or self-care (01) ==
LOC: WOUND CARE 10:30
PROVIDERS: ATTEND Nurse Practitioner
DX: T81.89XD Other complications of procedures, not elsewhere classified, subsequent encounter (principal); E11.622 Type 2 diabetes mellitus with other skin ulcer; L98.492 Non-pressure chronic ulcer of skin of other sites with fat layer exposed; I25.10 Atherosclerotic heart disease of native coronary artery without angina pectoris; E11.39 Type 2 diabetes mellitus with other diabetic ophthalmic complication; H42 Glaucoma in diseases classified elsewhere; I10 Essential (primary) hypertension; E78.5 Hyperlipidemia, unspecified; I25.2 Old myocardial infarction; E11.65 Type 2 diabetes mellitus with hyperglycemia; F32.9 Major depressive disorder, single episode, unspecified; F41.9 Anxiety disorder, unspecified; Z79.84 Long term (current) use of oral hypoglycemic drugs; Z85.820 Personal history of malignant melanoma of skin; Z79.899 Other long term (current) drug therapy; Z95.1 Presence of aortocoronary bypass graft; Z85.841 Personal history of malignant neoplasm of brain; Z85.118 Personal history of other malignant neoplasm of bronchus and lung; Z79.02 Long term (current) use of antithrombotics/antiplatelets; Z79.01 Long term (current) use of anticoagulants; Z98.890 Other specified postprocedural states; Y83.8 Other surgical procedures as the cause of abnormal reaction of the patient, or of later complication, without mention of misadventure at the time of the procedure
CPT/HCPCS: 36416; 82948; 97597

== ENCOUNTER 2019-12-07 10:19 | Day surgery (SDC) | payer MEDICAID ==
[2019-12-07] MEDS ORDERED: LIDOcaine 2% 5ml jelly ONE (10:28)
== END 2019-12-07 11:24 | disposition home or self-care (01) ==
LOC: WOUND CARE 10:19
PROVIDERS: ATTEND Nurse Practitioner
DX: T81.89XD Other complications of procedures, not elsewhere classified, subsequent encounter (principal); E11.622 Type 2 diabetes mellitus with other skin ulcer; L98.492 Non-pressure chronic ulcer of skin of other sites with fat layer exposed; L02.818 Cutaneous abscess of other sites; I25.10 Atherosclerotic heart disease of native coronary artery without angina pectoris; E11.39 Type 2 diabetes mellitus with other diabetic ophthalmic complication; H42 Glaucoma in diseases classified elsewhere; I10 Essential (primary) hypertension; E78.5 Hyperlipidemia, unspecified; I25.2 Old myocardial infarction; E11.65 Type 2 diabetes mellitus with hyperglycemia; F32.9 Major depressive disorder, single episode, unspecified; F41.9 Anxiety disorder, unspecified; Z79.84 Long term (current) use of oral hypoglycemic drugs; Z85.820 Personal history of malignant melanoma of skin; Z79.899 Other long term (current) drug therapy; Z95.1 Presence of aortocoronary bypass graft; Z85.841 Personal history of malignant neoplasm of brain; Z85.118 Personal history of other malignant neoplasm of bronchus and lung; Z79.02 Long term (current) use of antithrombotics/antiplatelets; Z79.01 Long term (current) use of anticoagulants; Z98.890 Other specified postprocedural states; Y83.8 Other surgical procedures as the cause of abnormal reaction of the patient, or of later complication, without mention of misadventure at the time of the procedure
CPT/HCPCS: 82948; 87070; 87075; 87077; 87102; 87186; 97597

== ENCOUNTER 2019-12-21 10:20 | Day surgery (SDC) | payer MEDICAID ==
[2019-12-21] MEDS ORDERED: LIDOcaine 2% 5ml jelly ONE (10:36)
== END 2019-12-21 11:47 | disposition home or self-care (01) ==
LOC: WOUND CARE 10:20
PROVIDERS: ATTEND Nurse Practitioner
DX: T81.89XD Other complications of procedures, not elsewhere classified, subsequent encounter (principal); L98.492 Non-pressure chronic ulcer of skin of other sites with fat layer exposed; E11.39 Type 2 diabetes mellitus with other diabetic ophthalmic complication; H42 Glaucoma in diseases classified elsewhere; I25.10 Atherosclerotic heart disease of native coronary artery without angina pectoris; I10 Essential (primary) hypertension; E78.5 Hyperlipidemia, unspecified; I25.2 Old myocardial infarction; F41.9 Anxiety disorder, unspecified; F32.9 Major depressive disorder, single episode, unspecified; Z79.899 Other long term (current) drug therapy; Z85.828 Personal history of other malignant neoplasm of skin; Z85.841 Personal history of malignant neoplasm of brain; Z79.01 Long term (current) use of anticoagulants; Z79.02 Long term (current) use of antithrombotics/antiplatelets; Z79.84 Long term (current) use of oral hypoglycemic drugs; Z85.118 Personal history of other malignant neoplasm of bronchus and lung; Z95.1 Presence of aortocoronary bypass graft; Y83.8 Other surgical procedures as the cause of abnormal reaction of the patient, or of later complication, without mention of misadventure at the time of the procedure
CPT/HCPCS: 36416; 82948; 97597

== ENCOUNTER 2019-12-24 12:30 | Outpatient (CLI) | payer MEDICAID ==
[2019-12-24] MEDS ORDERED: LIDOcaine 2% 5ml jelly ONE (13:30)
== END 2019-12-24 14:03 | disposition home or self-care (01) ==
LOC: WOUND CARE 12:30 → EDSTATUS 13:20 → WOUND CARE 14:03
PROVIDERS: ATTEND Nurse Practitioner
DX: T81.89XD Other complications of procedures, not elsewhere classified, subsequent encounter (principal); E11.622 Type 2 diabetes mellitus with other skin ulcer; L98.492 Non-pressure chronic ulcer of skin of other sites with fat layer exposed; L02.818 Cutaneous abscess of other sites; S91.101A Unspecified open wound of right great toe without damage to nail, initial encounter; I25.10 Atherosclerotic heart disease of native coronary artery without angina pectoris; E11.39 Type 2 diabetes mellitus with other diabetic ophthalmic complication; H42 Glaucoma in diseases classified elsewhere; I10 Essential (primary) hypertension; E78.5 Hyperlipidemia, unspecified; I25.2 Old myocardial infarction; E11.65 Type 2 diabetes mellitus with hyperglycemia; F32.9 Major depressive disorder, single episode, unspecified; F41.9 Anxiety disorder, unspecified; Z79.84 Long term (current) use of oral hypoglycemic drugs; Z85.820 Personal history of malignant melanoma of skin; Z79.899 Other long term (current) drug therapy; Z95.1 Presence of aortocoronary bypass graft; Z85.841 Personal history of malignant neoplasm of brain; Z85.118 Personal history of other malignant neoplasm of bronchus and lung; Z79.02 Long term (current) use of antithrombotics/antiplatelets; Z79.01 Long term (current) use of anticoagulants; Z98.890 Other specified postprocedural states; Y83.8 Other surgical procedures as the cause of abnormal reaction of the patient, or of later complication, without mention of misadventure at the time of the procedure; X58.XXXA Exposure to other specified factors, initial encounter; Y93.89 Activity, other specified; Y92.89 Other specified places as the place of occurrence of the external cause; Y99.8 Other external cause status
CPT/HCPCS: 82948; G0463

== ENCOUNTER 2019-12-27 08:20 | Day surgery (SDC) | payer MEDICAID | END 2019-12-27 09:19 | disposition home or self-care (01) | LOC: WOUND CARE 08:20 | PROVIDERS: ATTEND Nurse Practitioner | DX: T81.89XD Other complications of procedures, not elsewhere classified, subsequent encounter (principal); E11.622 Type 2 diabetes mellitus with other skin ulcer; L98.492 Non-pressure chronic ulcer of skin of other sites with fat layer exposed; S91.101D Unspecified open wound of right great toe without damage to nail, subsequent encounter; I25.10 Atherosclerotic heart disease of native coronary artery without angina pectoris; E11.39 Type 2 diabetes mellitus with other diabetic ophthalmic complication; H42 Glaucoma in diseases classified elsewhere; I10 Essential (primary) hypertension; E78.5 Hyperlipidemia, unspecified; I25.2 Old myocardial infarction; E11.65 Type 2 diabetes mellitus with hyperglycemia; F32.9 Major depressive disorder, single episode, unspecified; F41.9 Anxiety disorder, unspecified; Z85.820 Personal history of malignant melanoma of skin; Z79.899 Other long term (current) drug therapy; Z95.1 Presence of aortocoronary bypass graft; Z85.841 Personal history of malignant neoplasm of brain; Z85.118 Personal history of other malignant neoplasm of bronchus and lung; Z79.84 Long term (current) use of oral hypoglycemic drugs; Z79.02 Long term (current) use of antithrombotics/antiplatelets; Z79.01 Long term (current) use of anticoagulants; Z98.890 Other specified postprocedural states; Z85.828 Personal history of other malignant neoplasm of skin; Y83.8 Other surgical procedures as the cause of abnormal reaction of the patient, or of later complication, without mention of misadventure at the time of the procedure; X58.XXXD Exposure to other specified factors, subsequent encounter | CPT/HCPCS: 97597 ==

== ENCOUNTER 2020-05-21 11:28 | Emergency (ER) | payer MEDICAID ==
[~2020-05-21] VITALS: Ht 167.6 cm; Wt 88.6 kg
[~2020-05-21 11:28] MED LIST changes: -ASPI-1130 PO; +ASPI-1397 PO; +LATA2.5D14 EACHEYE; -LATA2.5D2 EACHEYE
[2020-05-21 12:23] LABS: BASOPHILS % (AUTO) 0.2 % (0-1); EOSINOPHILS # (AUTO) 0.2 X10'3 (0-0.9); EOSINOPHILS % (AUTO) 2.4 % (0-6); HEMATOCRIT 36.7 % (35.0-45.0); HEMOGLOBIN 12.4 g/dl (12.0-16.0); LYMPHOCYTES % (AUTO) 28.3 % (21-51); MEAN CORPUSCULAR HEMOGLOBIN 28.2 PG (27.0-31.0); MEAN CORPUSCULAR HGB CONC 33.8 g/dL (33.0-36.5); MEAN CORPUSCULAR VOLUME 83.6 FL (78-98); MEAN PLATELET VOLUME 6.8 FL (7.4-10.4); MONOCYTES # (AUTO) 0.3 X10'3 (0-0.9); MONOCYTES % (AUTO) 4.6 % (2-12); NEUTROPHILS # (AUTO) 4.6 X10'3 (1.8-7.7); NEUTROPHILS % (AUTO) 64.5 % (42-75); PLATELET COUNT 278 X10'3 (140-440); RED BLOOD COUNT 4.39 X10'6 (4.20-5.60); RED CELL DISTRIBUTION WIDTH 14.5 % (11.5-14.5); WHITE BLOOD COUNT 7.1 X10'3 (4.5-11.0)
[2020-05-21 12:31] LABS: ALBUMIN 3.3 G/DL (3.4-5.0); ANION GAP 3 (8-16); BLOOD UREA NITROGEN 19 MG/DL (7-18); BUN/CREATININE RATIO 21.6 (6.6-38.0); CALCIUM 9.3 MG/DL (8.5-10.1); CHLORIDE 93 MMOL/L (99-107); CREATININE 0.88 MG/DL (0.40-0.90); GLUCOSE 130 MG/DL (70-104); POTASSIUM 4.4 MMOL/L (3.5-5.1); SODIUM 128 MMOL/L (135-145); TOTAL CARBON DIOXIDE 31.9 MMOL/L (24-32); eGFR 67 ML/MIN
[2020-05-21 13:55] LABS: CLARITY,URINE SLIGHTLY CLOUDY (Clear); COLOR,URINE YELLOW (Yellow); GLUCOSE, URINE NEGATIVE (Neg); KETONES,URINE TRACE mg/dl (Neg); LEUKOCYTE ESTERASE ,URINE NEGATIVE (Neg); NITRITES, URINE NEGATIVE (Neg); OCCULT BLOOD,URINE NEGATIVE (Neg); PROTEIN,URINE NEGATIVE (Neg); UROBILINOGEN,URINE 0.2 E.U/dL (0.2-1.0)
[2020-05-21 14:05] LABS: UA COLLECTION TYPE CLN CATCH MIDSTREAM
[2020-05-21 14:16] LABS: MUCUS STRANDS FEW /LPF (Neg); SQUAMOUS EPITHELIAL CELL,UR FEW /LPF (FEW); TRANSITIONAL EPI CELLS,URINE FEW /HPF
[2020-05-21 14:17] LABS: CELLULAR CAST 0-4 /LPF (NEGATIVE)
[2020-05-21 14:18] LABS: BACTERIA,URINE FEW /HPF (Neg); RBC,URINE 0-2 /HPF (0-2)
--- NOTE | 2020-05-21 14:59 | NUR ---
transfer center [facility]a when covid results result
--- NOTE | 2020-05-21 16:12 | NUR ---
transfered center called by senior shipping clerk to let them know pt is covid positive. waititng to hear from [email or web address] if they will still take pt. will continue to monitor.
[2020-05-21 21:12] VITALS: BP 112/77
== END 2020-05-21 22:30 | disposition short-term general hospital (02) ==
LOC: ER 11:29
DX: U07.1 COVID-19 (principal); H53.2 Diplopia; E87.1 Hypo-osmolality and hyponatremia; Z86.018 Personal history of other benign neoplasm; I25.10 Atherosclerotic heart disease of native coronary artery without angina pectoris; E11.9 Type 2 diabetes mellitus without complications; Z85.118 Personal history of other malignant neoplasm of bronchus and lung; Z85.841 Personal history of malignant neoplasm of brain; Z95.1 Presence of aortocoronary bypass graft; Z79.82 Long term (current) use of aspirin; Z79.899 Other long term (current) drug therapy
CPT/HCPCS: 36415; 70450; 70553; 80048; 81001; 85025; 85610; 87088; 87635; 99285; C9803

== ENCOUNTER 2020-05-27 14:31 | Emergency (ER) | payer MEDICAID ==
[~2020-05-27] VITALS: Ht 167.6 cm; Wt 86.8 kg
--- NOTE | 2020-05-27 15:05 | NUR ---
PT TO CT VIA YULISSA WITH NURSE SHOOK AND NURSE NAVIGATOR
[2020-05-27 15:17] LABS: BASOPHILS # (AUTO) 0.1 X10'3 (0-0.2); BASOPHILS % (AUTO) 0.4 % (0-1); EOSINOPHILS # (AUTO) 0.1 X10'3 (0-0.9); HEMOGLOBIN 13.4 g/dl (12.0-16.0); LYMPHOCYTES # (AUTO) 4.1 X10'3 (1.1-4.8); MEAN PLATELET VOLUME 6.3 FL (7.4-10.4); MONOCYTES # (AUTO) 1.1 X10'3 (0-0.9)
[2020-05-27 15:19] LABS: EOSINOPHILS % (AUTO) 0.4 % (0-6); HEMATOCRIT 39.9 % (35.0-45.0); LYMPHOCYTES % (AUTO) 19.4 % (21-51); MEAN CORPUSCULAR HEMOGLOBIN 28.5 PG (27.0-31.0); MEAN CORPUSCULAR HGB CONC 33.6 g/dL (33.0-36.5); MEAN CORPUSCULAR VOLUME 84.6 FL (78-98); MONOCYTES % (AUTO) 5.1 % (2-12); NEUTROPHILS # (AUTO) 15.9 X10'3 (1.8-7.7); NEUTROPHILS % (AUTO) 74.7 % (42-75); PLATELET COUNT 711 X10'3 (140-440); RED BLOOD COUNT 4.72 X10'6 (4.20-5.60); RED CELL DISTRIBUTION WIDTH 14.6 % (11.5-14.5); WHITE BLOOD COUNT 21.3 X10'3 (4.5-11.0)
[2020-05-27 15:23] LABS: PARTIAL THROMBOPLASTIN TIME 25 SECONDS (22-32)
[2020-05-27 15:27] LABS: ALANINE AMINOTRANSFERASE 219 U/L (12-78); ALBUMIN 3.3 G/DL (3.4-5.0); ALBUMIN/GLOBULIN RATIO 0.9 (1.1-1.5); ALKALINE PHOSPHATASE 74 IU/L (46-116); ANION GAP 11 (8-16); ASPARTATE AMINO TRANSFERASE 74 U/L (10-37); BILIRUBIN,TOTAL 0.3 MG/DL (0.1-1.0); BLOOD UREA NITROGEN 11 MG/DL (7-18); BUN/CREATININE RATIO 18.6 (6.6-38.0); CALCIUM 8.8 MG/DL (8.5-10.1); CHLORIDE 97 MMOL/L (99-107); CREATININE 0.59 MG/DL (0.40-0.90); GLUCOSE 196 MG/DL (70-104); SODIUM 136 MMOL/L (135-145); TOTAL CARBON DIOXIDE 28.1 MMOL/L (24-32); TOTAL PROTEIN 7.1 G/DL (6.4-8.2); eGFR > 90 ML/MIN
[2020-05-27 15:31] LABS: TROPONIN I 0.22 NG/ML (0.0-0.05)
[2020-05-27 15:33] LABS: POTASSIUM 4.5 MMOL/L (3.5-5.1)
[2020-05-27] MEDS ORDERED: dexamethasone 4mg tablet PO ONE ×2 (16:05→22:00)
[2020-05-27] MEDS ORDERED: nitroGLYCERIN 0.4mg/hour patch TD ONE (16:35)
--- NOTE | 2020-05-27 17:47 | NUR ---
pt's law please call with all updates.
[2020-05-27] MEDS ORDERED: METO75TA PO (18:35)
[2020-05-27] MEDS ORDERED: normal saline 1000ML IV soln IVB ONE (22:25)
[2020-05-27 23:33] LABS: D-DIMER 1.34 MG/L FEU (0-0.50)
[2020-05-28] MEDS ORDERED: acetaminophen 325mg tablet PO ONE (04:00)
[2020-05-28 06:49] VITALS: BP 110/70
[2020-05-28] MEDS ORDERED: dexamethasone 1mg tablet PO SCH (08:00)
[2020-05-29] MEDS ORDERED: dexamethasone 1mg tablet PO SCH (08:00)
== END 2020-05-28 06:51 | disposition home or self-care (01) ==
LOC: ER 14:31
DX: U07.1 COVID-19 (principal); R51.9 Headache, unspecified; R11.10 Vomiting, unspecified; R42 Dizziness and giddiness; I25.10 Atherosclerotic heart disease of native coronary artery without angina pectoris; I25.2 Old myocardial infarction; E11.9 Type 2 diabetes mellitus without complications; Z85.118 Personal history of other malignant neoplasm of bronchus and lung; Z85.841 Personal history of malignant neoplasm of brain; Z98.890 Other specified postprocedural states; Z79.899 Other long term (current) drug therapy
CPT/HCPCS: 36415; 70450; 70553; 71045; 80053; 83605; 84484; 85025; 85379; 85610; 85730; 93005; 96360; 99285; J7030

== ENCOUNTER 2022-09-02 03:11 | Inpatient (IN) | payer MEDICAID ==
[2022-09-02] VITALS (11 sets, daily range): BP systolic 110–149; BP diastolic 59–83
[~2022-09-02] VITALS: Ht 167.6 cm; Wt 92.5 kg
[~2022-09-02 03:11] MED LIST changes: -ASPI-1397 PO; +ESCI20TA39 PO; -ESCI20TA45 PO; -GLIP5TAB13 PO; -METO25TA6 PO; +METO75TA PO
[2022-09-02] MEDS ORDERED: heparin 25,000 UNIT/250ml bag 250 ML IV PRN (03:40)
[2022-09-02] MEDS ORDERED: aspirin 81mg tab.chew PO ONE (03:40)
[2022-09-02] MEDS ORDERED: heparin 10,000 units/1 ML INJ IV ONE (03:40)
[2022-09-02] MEDS ORDERED: nitroGLYCERIN 0.4mg SUBLingual tab SL PRN ×2 (03:45→05:50)
[2022-09-02 03:55] LABS: APTT 22 SECONDS (22-32)
[2022-09-02 04:03] LABS: ALANINE AMINOTRANSFERASE 36 U/L (12-78); ALBUMIN 4.4 G/DL (3.4-5.0); ALBUMIN/GLOBULIN RATIO 1.3 (1.1-1.5); ALKALINE PHOSPHATASE 73 IU/L (46-116); ANION GAP 11 (8-16); ASPARTATE AMINO TRANSFERASE 25 U/L (10-37); BILIRUBIN,TOTAL 0.5 MG/DL (0.1-1.0); BLOOD UREA NITROGEN 15 MG/DL (7-18); BUN/CREATININE RATIO 23.8 (10.0-20.0); CALCIUM 10.1 MG/DL (8.5-10.1); CHLORIDE 102 MMOL/L (99-107); CREATININE 0.63 MG/DL (0.40-0.90); GLUCOSE 135 MG/DL (70-104); MAGNESIUM 1.9 MG/DL (1.5-2.4); POTASSIUM 3.9 MMOL/L (3.5-5.1); SODIUM 140 MMOL/L (135-145); TOTAL CARBON DIOXIDE 26.6 MMOL/L (24-32); TOTAL PROTEIN 7.9 G/DL (6.4-8.2); eGFR > 90 ML/MIN
[2022-09-02] MEDS: heparin 10,000 units/1 ML INJ IV PRN ×3 (04:16→22:57)
[2022-09-02] MEDS: heparin 25,000 UNIT/250ml bag 250 ML IV PRN ×2 (04:22→22:57)
[2022-09-02 04:32] LABS: BASOPHILS % (AUTO) 0.6 % (0-1); EOSINOPHILS # (AUTO) 0.1 X10'3 (0-0.9); EOSINOPHILS % (AUTO) 1.9 % (0-6); HEMATOCRIT 39.5 % (35.0-45.0); HEMOGLOBIN 13.6 g/dl (12.0-16.0); LYMPHOCYTES # (AUTO) 2.4 X10'3 (1.1-4.8); LYMPHOCYTES % (AUTO) 39.5 % (21-51); MEAN CORPUSCULAR HEMOGLOBIN 29.1 PG (27.0-31.0); MEAN CORPUSCULAR HGB CONC 34.4 g/dL (33.0-36.5); MEAN CORPUSCULAR VOLUME 84.7 FL (78-98); MEAN PLATELET VOLUME 6.4 FL (7.4-10.4); MONOCYTES # (AUTO) 0.4 X10'3 (0-0.9); MONOCYTES % (AUTO) 7.3 % (2-12); NEUTROPHILS # (AUTO) 3.1 X10'3 (1.8-7.7); NEUTROPHILS % (AUTO) 50.7 % (42-75); PLATELET COUNT 362 X10'3 (140-440); RED BLOOD COUNT 4.66 X10'6 (4.20-5.60); RED CELL DISTRIBUTION WIDTH 13.2 % (11.5-14.5); WHITE BLOOD COUNT 6.1 X10'3 (4.5-11.0)
[2022-09-02] MEDS ORDERED: acetaminophen 650mg rectal suppository RC PRN (05:40)
[2022-09-02] MEDS ORDERED: diphenhydrAMINE 25mg capsule PO PRN (05:40)
[2022-09-02] MEDS ORDERED: magnesium hydroxide 30ml (MOM) UD suspension PO PRN ×2 (05:40→16:50)
[2022-09-02] MEDS ORDERED: morphine 2 MG/ML inj. syringe IV PRN ×2 (05:40)
[2022-09-02] MEDS ORDERED: mag hydrox/Alum hydrox/simeth 30ml oral suspension PO PRN (05:40)
[2022-09-02] MEDS ORDERED: acetaminophen 325mg tablet PO PRN ×2 (05:40)
[2022-09-02] MEDS ORDERED: diphenhydrAMINE 50 mg/ml inj IV PRN (05:40)
[2022-09-02] MEDS ORDERED: ondansetron/PF 4mg/2ml inj IV PRN (05:40)
[2022-09-02] MEDS ORDERED: HYDROmorphone inj. 0.5 MG/0.5 ML DISP.SYRIN IV PRN (05:40)
[2022-09-02] MEDS ORDERED: HYDROcodone/acetaminophen 10/325mg tab PO PRN (05:40)
[2022-09-02] MEDS ORDERED: HYDROcodone/acetaminophen 5mg/325mg tablet PO PRN (05:40)
[2022-09-02] MEDS ORDERED: ondansetron 4mg rapidly disintigrating tab PO PRN (05:40)
[2022-09-02] MEDS ORDERED: bisacodyl 10mg suppository rectal RC PRN (05:40)
[2022-09-02] MEDS ORDERED: metoprolol tartrate 1mg/ml inj IV PRN (05:50)
[2022-09-02] MEDS ORDERED: insulin Lispro (HumaLOG) vial - multi-dose SQ SCH (05:50)
[2022-09-02] MEDS ORDERED: regadenoson 0.4mg/5ml syringe IV PRN (05:50)
[2022-09-02] MEDS ORDERED: MESSAGE TO PHARMACY PO ONE (05:50)
[2022-09-02] MEDS ORDERED: DEXTROSE 15 GM of carb/4 tabs (each vial/BOTTLE has 4 tablets) PO PRN ×2 (05:50)
[2022-09-02] MEDS ORDERED: dextrose 50%-water 50ml dispensing syringe IV PRN ×2 (05:50)
[2022-09-02] MEDS ORDERED: aminophylline 250mg/10ml inj. IV PRN (05:50)
[2022-09-02] MEDS ORDERED: glucagon, human recombinant 1mg kit SUBCUT PRN (05:50)
[2022-09-02] MEDS: normal saline 1000ml 1,000 ML IV SCH ×2 (05:56→17:30)
--- NOTE | 2022-09-02 06:00 | NUR ---
Notified DR Fagan of Troponin level of 400, no new orders. Pt is on heparin gtt per cardiac protocal.Pt denies chest pain at this time
[2022-09-02 06:31] LABS: D-DIMER 0.29 MG/L FEU (0-0.50)
[2022-09-02 06:43] LABS: HEMOGLOBIN A1C 6.4 % (4.5-6.2)
[2022-09-02 06:46] LABS: CREATINE KINASE 85 U/L (26-192); LIPASE 117 U/L (73-393); PHOSPHORUS 4.7 MG/DL (2.3-4.5)
[2022-09-02] MEDS: pantoprazole 40mg Tablet.DR PO SCH (07:20)
[2022-09-02] MEDS ORDERED: docusate sod 100mg capsule PO SCH (08:00)
--- NOTE | 2022-09-02 10:33 | NUR ---
PT takes Dexamethasone 0.25mg per day
--- NOTE | 2022-09-02 11:12 | NUR ---
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 Pt recieving immunotherapy at this time. Addendum: 09/02/22 at 1143 by Collin Smith LVN Amended: Links added.
--- NOTE | 2022-09-02 11:16 | NUR ---
1 blanket and 1 sheet Addendum: 09/02/22 at 1143 by Collin Smith LVN Amended: Links added.
[2022-09-02] MEDS ORDERED: GLIP10TA11 PO (11:36)
[2022-09-02] MEDS ORDERED: RANO500T6 PO (11:36)
[2022-09-02] MEDS ORDERED: ROSU5TAB12 PO (11:36)
[2022-09-02] MEDS ORDERED: NITR0.4T48 SL (11:36)
[2022-09-02] MEDS ORDERED: DULA0.75 SQ (11:36)
[2022-09-02] MEDS ORDERED: ISOS60TA71 PO (11:36)
--- NOTE | 2022-09-02 11:51 | NUR ---
Paged. promotional table spacer Page Accepted Message: [id number]- [place]- Pt Trop elevated 1751. Collin Smith LVN Transaction number: [id number]
--- NOTE | 2022-09-02 12:31 | NUR ---
Late entry ANALYST BUSINESS ANALYSIS paged. [phone]- Ball. Pt on a heparin gtt 1200 units/hr. For the cath procedure, does this need to be continued or held? Thanks. Collin Smith LVN
[2022-09-02] MEDS ORDERED: METO-411 PO (12:40)
[2022-09-02] MEDS ORDERED: DEXA0.5T PO (12:41)
[2022-09-02] MEDS ORDERED: ASPI-611 PO (12:42)
[2022-09-02] MEDS ORDERED: CHOL10006 PO (12:44)
[2022-09-02] MEDS ORDERED: ACET-2319 PO (12:45)
[2022-09-02] MEDS ORDERED: IMMUNOTHERAPY IV (12:47)
[2022-09-02] MEDS ORDERED: [UNRECOGNIZED DRUG - OTHER] PO (12:49)
[2022-09-02] MEDS ORDERED: PROGESTERONE COMPOUN PO (12:51)
[2022-09-02] MEDS ORDERED: LIDOcaine 1% 30ml preserv. free vial ONE (12:58)
[2022-09-02] MEDS ORDERED: iohexol 350MG/ML 100ml bottle IV ONE ×2 (12:58→14:22)
[2022-09-02] MEDS ORDERED: iohexol 350 MG/ML 50ML vial IV ONE ×2 (12:58→14:07)
[2022-09-02] MEDS ORDERED: CHOL50004 PO (13:15)
[2022-09-02] MEDS ORDERED: CHOL500050 PO (13:15)
--- NOTE | 2022-09-02 13:32 | NUR ---
Pt leaving to Supervisor Water Softener Service
[2022-09-02] MEDS ORDERED: hydrocortisone sod succ/PF 100mg/2ml inj. ONE (13:42)
[2022-09-02] MEDS ORDERED: diphenhydrAMINE 50 mg/ml inj ONE (13:42)
[2022-09-02] MEDS ORDERED: fentaNYL/PF 50MCG/1 ML 2ML syringe ONE (13:43)
[2022-09-02] MEDS ORDERED: midazolam 1 mg/ML 2ml injection ONE ×2 (13:43→14:36)
[2022-09-02] MEDS ORDERED: heparin 1,000unit/ml 10ml vial 10 ML ONE (14:32)
--- NOTE | 2022-09-02 14:55 | NUR ---
Patient in room PCU 3014. I have received report from Omid GARCIA and had the opportunity to ask questions and assume patient care. Pt is alert and oriented x 4. Pt stated she was admitted due to angina episode. Pt denies chest pain. Pt breathing even and unlabored on room air. Pt currently on heparin at 1200units/ hr to PIV. RN verified order. No skin issues noted. Nitro patch noted to left chest. No distress noted. Addendum: 09/02/22 at 1458 by Collin Smith LVN Amended: Links added.
--- NOTE | 2022-09-02 15:50 | NUR ---
Problems reprioritized. Patient report given, questions answered & plan of care reviewed with Josephine GARCIA.
--- NOTE | 2022-09-02 16:00 | NUR ---
Pt received from dental laboratory supervisor Drowsy but alert " NO c/o of pain or discomfort " VSS Right groin sheath patent No bleeding or hematoma noted [place] with good wave form Lungs clear Rhythm RSR Right leg warm with good pulses Orders received and noted
[2022-09-02] MEDS: metoprolol succinate 25mg (24-HOUR) SR. Tablet PO SCH (16:26)
[2022-09-02] MEDS ORDERED: cyclobenzaprine 10mg tablet PO PRN (16:50)
[2022-09-02] MEDS ORDERED: morphine 10mg/ml inj. IV PRN (16:50)
[2022-09-02] MEDS ORDERED: OXAZEpam 15mg capsule PO PRN (16:50)
[2022-09-02] MEDS ORDERED: proCHLORperazine 10 MG/2 ml inj IV PRN (16:50)
[2022-09-02] MEDS ORDERED: morphine 4 MG/ML inj SYRINge IV PRN (16:50)
[2022-09-02] MEDS ORDERED: nitroGLYCERIN-Tridil 50MG/D5W 250 ML IV PRN (18:05)
[2022-09-02] MEDS: nitroGLYCERIN-Tridil 50MG/D5W 250 ML IV SCH (18:10)
[2022-09-02] MEDS: Insulin Reg/NS 100units/100mL 100 ML IV SCH (18:20)
--- NOTE | 2022-09-02 18:42 | NUR ---
Report to oncoming shift RN Right groin stable Able to void without difficulty on bedpan Family at bedside and plan of care gone over
[2022-09-02] MEDS: docusate sod 100mg capsule PO SCH (20:00)
[2022-09-02] MEDS: temazepam 15mg capsule PO PRN (20:22)
[2022-09-02] MEDS: ESCITALOPRAM OXALATE 5 MG TABLET PO SCH (20:22)
[2022-09-02] MEDS: isosorbide mononitrate 30mg tab.SR.24H PO SCH (20:23)
[2022-09-02] MEDS ORDERED: DP HYDRAM HCL PO SCH (21:00)
[2022-09-02] MEDS: latanoprost 0.005% 2.5ml ophthalmic drops EACHEYE SCH (21:00)
[2022-09-02] MEDS ORDERED: insulin glargine (Lantus) pen - multi-dose SQ SCH (21:00)
[2022-09-02] MEDS ORDERED: ACETAMINOPHEN PO SCH (21:00)
[2022-09-03] VITALS (24 sets, daily range): BP systolic 109–169; BP diastolic 58–90
[2022-09-03 04:33] LABS: BASOPHILS % (AUTO) 0.3 % (0-1); EOSINOPHILS # (AUTO) 0.1 X10'3 (0-0.9); EOSINOPHILS % (AUTO) 1.5 % (0-6); HEMATOCRIT 34.9 % (35.0-45.0); HEMOGLOBIN 12.1 g/dl (12.0-16.0); LYMPHOCYTES # (AUTO) 2.7 X10'3 (1.1-4.8); LYMPHOCYTES % (AUTO) 38.9 % (21-51); MEAN CORPUSCULAR HEMOGLOBIN 29.4 PG (27.0-31.0); MEAN CORPUSCULAR HGB CONC 34.7 g/dL (33.0-36.5); MEAN CORPUSCULAR VOLUME 84.8 FL (78-98); MEAN PLATELET VOLUME 6.3 FL (7.4-10.4); MONOCYTES # (AUTO) 0.4 X10'3 (0-0.9); MONOCYTES % (AUTO) 5.5 % (2-12); NEUTROPHILS # (AUTO) 3.8 X10'3 (1.8-7.7); NEUTROPHILS % (AUTO) 53.8 % (42-75); PLATELET COUNT 335 X10'3 (140-440); RED BLOOD COUNT 4.12 X10'6 (4.20-5.60); RED CELL DISTRIBUTION WIDTH 13.1 % (11.5-14.5)
[2022-09-03 04:48] LABS: ALANINE AMINOTRANSFERASE 29 U/L (12-78); ALBUMIN 3.2 G/DL (3.4-5.0); ALBUMIN/GLOBULIN RATIO 1.1 (1.1-1.5); ALKALINE PHOSPHATASE 54 IU/L (46-116); ANION GAP 9 (8-16); ASPARTATE AMINO TRANSFERASE 25 U/L (10-37); BILIRUBIN,TOTAL 0.4 MG/DL (0.1-1.0); BLOOD UREA NITROGEN 7 MG/DL (7-18); CALCIUM 8.5 MG/DL (8.5-10.1); CHLORIDE 106 MMOL/L (99-107); CHOL/HDL RATIO 5.3 (0.00-4.99); CHOLESTEROL 186 MG/DL (0-200); GLUCOSE 109 MG/DL (70-104); HDL CHOLESTEROL 35 MG/DL (35-60); LDL CHOLESTEROL 118 MG/DL (50-100); POTASSIUM 3.5 MMOL/L (3.5-5.1); SODIUM 141 MMOL/L (135-145); TOTAL PROTEIN 6.1 G/DL (6.4-8.2); TRIGLYCERIDES 203 MG/DL (20-135); eGFR > 90 ML/MIN
[2022-09-03] MEDS: pantoprazole 40mg Tablet.DR PO SCH (07:36)
[2022-09-03] MEDS: aspirin 81mg tab.chew PO SCH (07:36)
[2022-09-03] MEDS: metoprolol succinate 25mg (24-HOUR) SR. Tablet PO SCH (07:36)
[2022-09-03] MEDS: docusate sod 100mg capsule PO SCH ×2 (07:36→19:24)
[2022-09-03] MEDS: isosorbide mononitrate 30mg tab.SR.24H PO SCH ×2 (07:37→20:37)
[2022-09-03] MEDS: atorvastatin 20mg tablet PO SCH (07:37)
[2022-09-03] MEDS: normal saline 1000ml 1,000 ML IV SCH ×2 (07:44→20:31)
[2022-09-03] MEDS ORDERED: atorvastatin 20mg tablet PO SCH (08:00)
[2022-09-03] MEDS ORDERED: aspirin 81mg, enteric-coated 1 TAB TABLET.DR PO SCH (08:00)
[2022-09-03] MEDS ORDERED: cholecalciferol (vitamin D3) 1,000 unit (25mcg) tablet PO SCH (08:00)
[2022-09-03] MEDS: dexamethasone 1mg tablet PO SCH (08:34)
[2022-09-03] MEDS: heparin 10,000 units/1 ML INJ IV PRN (10:45)
--- NOTE | 2022-09-03 12:38 | NUR ---
Cardiac consult re: vegan. Pt seen at bedside for written and verbal heart healthy nutrition therapy education. Pt states she follows a vegan/vegetarian diet mostly for heart health. Food preferences were obtained and d/w dietary, see below. Pt reports a reduced appetite and attributes it to starting Trulicity about two months ago. Pt states she has vegan ONS at home that her SO could bring in if needed, though also agrees to Ensure during admit if needed. Pt agrees to monitor PO intake after food preferences are implemented prior to determining need for ONS. Pt denies any food allergies, difficulty chewing/swallowing, or constipation/diarrhea. Per pt LBM was just PROGRAM PROFESSIONAL. Pt receiving routine bowel care and with additional PRN bowel care available. Pt provided with RD contact information and encouraged to reach out if needed. Will continue to follow. Recommendations: 1) Vegetarian diet per pt preferences; discontinue CHO controlled diet restriction if BG levels well controlled, A1c 6.4% 2) [place] food preferences: oatmeal, apples, and peanut butter WB; cottage cheese with strawberries BIDLD; pt likes sweet potatoes, green beans, and salads; pt dislikes tofu 3) Routine bowel care 4) Weekly scaled weights Addendum: 09/03/22 at [address] Amended: Links added.
[2022-09-03] MEDS: heparin 25,000 UNIT/250ml bag 250 ML IV PRN (13:14)
--- NOTE | 2022-09-03 14:39 | NUR ---
Per Serenity Aguirre RECYCLING CENTER OPERATOR, stop heparin drip, pull sheath, and restart heparin in two hours per Dr. Gonzalez's order.
--- NOTE | 2022-09-03 16:40 | NUR ---
Sheath removed at 16:30. Manual pressure held for 15 minutes. Hemostasis achieved. Site soft. FemStop applied. R pedal pulse strong. Heparin drip to resume at 18:30 per MD order.
[2022-09-03] MEDS: nitroGLYCERIN-Tridil 50MG/D5W 250 ML IV SCH (18:10)
[2022-09-03] MEDS: Insulin Reg/NS 100units/100mL 100 ML IV SCH (18:20)
[2022-09-03] MEDS: latanoprost 0.005% 2.5ml ophthalmic drops EACHEYE SCH (18:53)
[2022-09-03] MEDS: ESCITALOPRAM OXALATE 5 MG TABLET PO SCH (20:37)
[2022-09-03] MEDS: temazepam 15mg capsule PO PRN (20:38)
[2022-09-04] VITALS (16 sets, daily range): BP systolic 112–157; BP diastolic 55–95
[2022-09-04 00:27] LABS: ALANINE AMINOTRANSFERASE 27 U/L (12-78); ALBUMIN 3.4 G/DL (3.4-5.0); ALBUMIN/GLOBULIN RATIO 1.2 (1.1-1.5); ALKALINE PHOSPHATASE 60 IU/L (46-116); ANION GAP 12 (8-16); ASPARTATE AMINO TRANSFERASE 19 U/L (10-37); BILIRUBIN,TOTAL 0.5 MG/DL (0.1-1.0); BLOOD UREA NITROGEN 4 MG/DL (7-18); BUN/CREATININE RATIO 7.3 (10.0-20.0); CALCIUM 8.6 MG/DL (8.5-10.1); CHLORIDE 106 MMOL/L (99-107); CREATININE 0.55 MG/DL (0.40-0.90); GLUCOSE 214 MG/DL (70-104); POTASSIUM 3.7 MMOL/L (3.5-5.1); SODIUM 141 MMOL/L (135-145); TOTAL CARBON DIOXIDE 23.3 MMOL/L (24-32); TOTAL PROTEIN 6.2 G/DL (6.4-8.2); eGFR > 90 ML/MIN
[2022-09-04 00:31] LABS: BASOPHILS % (AUTO) 0.4 % (0-1); EOSINOPHILS # (AUTO) 0.1 X10'3 (0-0.9); EOSINOPHILS % (AUTO) 2.2 % (0-6); HEMATOCRIT 35.2 % (35.0-45.0); HEMOGLOBIN 12.3 g/dl (12.0-16.0); LYMPHOCYTES # (AUTO) 2.1 X10'3 (1.1-4.8); LYMPHOCYTES % (AUTO) 38.3 % (21-51); MEAN CORPUSCULAR HEMOGLOBIN 29.6 PG (27.0-31.0); MEAN CORPUSCULAR HGB CONC 34.9 g/dL (33.0-36.5); MEAN CORPUSCULAR VOLUME 84.9 FL (78-98); MEAN PLATELET VOLUME 6.8 FL (7.4-10.4); MONOCYTES # (AUTO) 0.3 X10'3 (0-0.9); MONOCYTES % (AUTO) 5.5 % (2-12); NEUTROPHILS # (AUTO) 2.9 X10'3 (1.8-7.7); NEUTROPHILS % (AUTO) 53.6 % (42-75); PLATELET COUNT 304 X10'3 (140-440); RED BLOOD COUNT 4.15 X10'6 (4.20-5.60); RED CELL DISTRIBUTION WIDTH 13.1 % (11.5-14.5); WHITE BLOOD COUNT 5.5 X10'3 (4.5-11.0)
[2022-09-04] MEDS: heparin 10,000 units/1 ML INJ IV PRN (00:48)
[2022-09-04] MEDS: heparin 25,000 UNIT/250ml bag 250 ML IV PRN (05:19)
[2022-09-04] MEDS: normal saline 1000ml 1,000 ML IV SCH (05:40)
--- NOTE | 2022-09-04 06:26 | NUR ---
Patient in room CICU 2006. I have received report from Ray GARCIA and had the opportunity to ask questions and assume patient care. Pt is laying low fowlers in bed and is resting comfortably. Pt on RA. No s/s of distress, or c/o pain at this time. Pt on heparing GTT running @2300u/hr. Next cardiac PTT at 0700. Will continue to monitor. BLL, call light within reach, frequently used items in reach, frequent rounidng. Will continue to monitior.
[2022-09-04] MEDS ORDERED: cholecalciferol (vitamin D3) 1,000 unit (25mcg) tablet PO SCH (08:00)
[2022-09-04] MEDS: atorvastatin 20mg tablet PO SCH (08:09)
[2022-09-04] MEDS: aspirin 81mg tab.chew PO SCH (08:09)
[2022-09-04] MEDS: isosorbide mononitrate 30mg tab.SR.24H PO SCH (08:09)
[2022-09-04] MEDS: docusate sod 100mg capsule PO SCH (08:09)
[2022-09-04] MEDS: pantoprazole 40mg Tablet.DR PO SCH (08:09)
[2022-09-04] MEDS: metoprolol succinate 25mg (24-HOUR) SR. Tablet PO SCH (08:10)
[2022-09-04] MEDS: dexamethasone 1mg tablet PO SCH (08:11)
--- NOTE | 2022-09-04 15:47 | NUR ---
Pt transferred to U 3012B. Pt on TELE #10, VSS, pt afebrile, no issues with medication. All belongings with PT. Pt on heparing GTT running @2000u/hr, next PTT draw 1630. Will continue to monitor.
--- NOTE | 2022-09-04 18:42 | NUR ---
Report given to Flight Medic and Regi RN @ [facility]. VSS, pt afebrile, no issues with medications. All belongings left with Pt. Pt on heparin GTT running @ 2000u/hr. All transfer question answered. Paperwork in Pts chart.
[2022-09-05] MEDS ORDERED: atorvastatin 20mg tablet PO SCH (08:00)
== END 2022-09-04 18:20 | disposition short-term general hospital (02) | DRG 190 ==
LOC: ER 03:12 → ED HOLD 05:47 → PCU 3S 10:10 → CICU 2S 15:55 → PCU 3S 09-04 15:17
PROVIDERS: ADMIT Family Medicine; ATTEND Family Medicine
PROC: 4A023N7 Measurement of Cardiac Sampling and Pressure, Left Heart, Percutaneous Approach (ICD-10-PCS; principal; 2022-09-02)
PROC: B2111ZZ Fluoroscopy of Multiple Coronary Arteries using Low Osmolar Contrast (ICD-10-PCS; 2022-09-02)
PROC: B2151ZZ Fluoroscopy of Left Heart using Low Osmolar Contrast (ICD-10-PCS; 2022-09-02)
PROC: B2181ZZ Fluoroscopy of Left Internal Mammary Bypass Graft using Low Osmolar Contrast (ICD-10-PCS; 2022-09-02)
PROC: B2171ZZ Fluoroscopy of Right Internal Mammary Bypass Graft using Low Osmolar Contrast (ICD-10-PCS; 2022-09-02)
PROC: B41F1ZZ Fluoroscopy of Right Lower Extremity Arteries using Low Osmolar Contrast (ICD-10-PCS; 2022-09-02)
DX: I21.4 Non-ST elevation (NSTEMI) myocardial infarction (principal); I11.0 Hypertensive heart disease with heart failure; C43.9 Malignant melanoma of skin, unspecified; I50.32 Chronic diastolic (congestive) heart failure; C78.00 Secondary malignant neoplasm of unspecified lung; C79.31 Secondary malignant neoplasm of brain; E11.65 Type 2 diabetes mellitus with hyperglycemia; E78.5 Hyperlipidemia, unspecified; I25.119 Atherosclerotic heart disease of native coronary artery with unspecified angina pectoris; I25.2 Old myocardial infarction; Z79.52 Long term (current) use of systemic steroids; Z79.82 Long term (current) use of aspirin; Z82.49 Family history of ischemic heart disease and other diseases of the circulatory system; Z86.73 Personal history of transient ischemic attack (TIA), and cerebral infarction without residual deficits; Z91.013 Allergy to seafood; Z95.1 Presence of aortocoronary bypass graft; Z88.8 Allergy status to other drugs, medicaments and biological substances; Z79.899 Other long term (current) drug therapy; Z86.16 Personal history of COVID-19
CPT/HCPCS: 36415; 71045; 80053; 80061; 82550; 82948; 83036; 83690; 83735; 83880; 84100; 84443; 84484; 85025; 85347; 85379; 85610; 85730; 87081; 93005; 93459; 93880; 93970; 99152; 99153; 99285; A6258; A6402; A6446; A6449; G0378; J1200; J1644; J1720; J1815; J2250; J3010; J3490; J7030; J7040; J8540; Q0163; Q9967

== ENCOUNTER 2025-04-13 15:45 | Emergency (ER) | payer BC ==
[~2025-04-13] VITALS: Ht 167.6 cm; Wt 61.6 kg
[~2025-04-13 15:45] MED LIST changes: +ACET-2319 PO; +ASPI-611 PO; +CHOL50004 PO; -CHOL500049 PO; +CHOL500050 PO; -DEC4T PO; +DEXA0.5T PO; +DULA0.75 SQ; -FERR1TAB21 PO; +GLIP10TA18 PO; +IMMUNOTHERAPY IV; +ISOS60TA71 PO; -LATA2.5D14 EACHEYE; +LATA2.5D7 EACHEYE; +METO-411 PO; -METO75TA PO; +NITR0.4T48 SL; +PROGESTERONE COMPOUN PO; +RANO500T6 PO; +ROSU5TAB51 PO; +[UNRECOGNIZED DRUG - OTHER] PO
[2025-04-13 16:04] VITALS: BP 152/70; PULSE 68; RESP 18; TEMP 97.8; O2SAT 100
--- NOTE | 2025-04-13 16:09 | Physician Documentation ---
History of Present Illness ~ Chief Complaint: Leg Laceration Stated Complaint: LEG LAC Time Seen by MD: 16:33 OK to notify your PCP?: Yes Source: patient Mode of Arrival: POV Exam Limitations: no limitations HPI This 59-year-old female who presents for left lower extremity laceration from a rake. Unknown tetanus status. She denies taking any blood thinners. Bleeding controlled with bandage. Tetanus Within 5 Years: Yes Medication Reconciliation Allergies: Coded Allergies: Uoqjyer-JTP-VgP Reductase Inhibitor (Verified Allergy, Intermediate, HIVES, 04/13/25) Uncoded Allergies: CHOLESTEROL MED (Allergy, Severe, 09/02/22) SEAFOOD (Adverse Reaction, Unknown, VOMITING, 08/17/19) Scheduled Acetaminophen/Dp-Hydram Hcl (Tylenol Pm), 1 TAB PO HS, (Reported) Aspirin (Aspir 81), 1 TAB PO DAILY, (Reported) Cholecalciferol (Vitamin D3) (Vitamin D3), 2 CAP PO Q48H, (Reported) Cholecalciferol (Vitamin D3) (Vitamin D3), 3 CAP PO Q48H, (Reported) Dexamethasone (Dexamethasone), 0.25 MG PO DAILY, (Reported) Dulaglutide (Trulicity), 1 SYR SQ Q7D, (Reported) Escitalopram Oxalate (Escitalopram Oxalate), 0.5 TAB PO HS, (Reported) Glipizide (Glipizide), 0.5 TAB PO BID, (Reported) Isosorbide Mononitrate (Isosorbide Mononitrate Er), 1 TAB PO BID, (Reported) Latanoprost (Latanoprost), 1 DROP EACHEYE HS, (Reported) Metformin HCl (Metformin HCl), 1 TAB PO BID, (Reported) Metoprolol Succinate (Metoprolol Succinate), 1 TAB PO BID, (Reported) Ranolazine (Ranolazine ER), 1 TAB PO BID, (Reported) Rosuvastatin Calcium (Rosuvastatin Calcium), 1 TAB PO DAILY, (Reported) Sulfamethoxazole/Trimethoprim (Septra Ds Tab), 1 TAB PO Q12H [Immunotherapy], 1 UNIT IV Q30D, (Reported) [Liothyronine-Thyroxi], 1 TAB PO DAILY, (Reported) [Progesterone Compoun], 1 TAB PO HS, (Reported) Scheduled PRN Nitroglycerin (Nitroglycerin), 1 TAB SL for chest pain, (Reported) Past Medical History Past Medical History: Coronary Artery Disease, Myocardial Infarction, Diabetes, Melanoma, *CANCER*, Brain Cancer, Lung Cancer Past Surgical History: coronary bypass surgery Alcohol Use: None Drug Use: none Lives In: Home Review of Systems All Other Systems at this time: Reviewed and Negative Physical Exam Vital Signs: RN Vital Signs have been reviewed: Yes, Temperature: 97.8, Source: Oral, Heart Rate: 68, Respiratory Rate: 18, BP: 152/70, Pulse Oximetry: 100, Weight: 61.600 Oxygen Flow Rate: 0 Pulse Oximetry Reflects: adequate oxygenation Physical Exam General: Alert, no apparent distress. HEENT: PERRL, EOMI, no injection, moist mucous membranes. Neck: Full range of motion. Respiratory: Lungs clear, no respiratory distress. Chest: No accessory muscle use. Cardiovascular: Regular rate and rhythm, no murmurs. Gastrointestinal: Soft, nontender, nondistended. Bowels sounds present. Extremities: Normal range of motion, no deformity. Neurologic: Oriented x4. Psychiatric: Normal mood and affect. Skin: Y shaped approximately 4 cm superficial laceration to left lower calf. There is some bruising noted around the wound. Procedures Laceration/Wound Repair Laceration : Location: Left lower calf Length (cm): 4 Anesthesia: Lidocaine w/ Epi Volume Anesthetic (mls): 5 Prep: irrigated by nurse Debrided: minimal Undermining: minimal Margins: revised Foreign Body: not identified Repaired: skin Wound Repaired With: sutures Suture Size/Type: 4-0, ethilon Number of Superficial Sutures: 15 Layer Closure?: No Dressing Applied: simple, bacitracin, non-adherent Splint Applied?: No Sling Applied?: Yes Tolerated Procedure Well?: yes, no complications Progress Results/Orders Reviewed/noted all lab results: Yes Results/Orders Orders - ARELI SHEPARD Sulfamethox/Trimetho. Ds Tab (Septra Ds (04/13/25 17:45) Completed Orders - ARELI SHEPARD Bacitracin Ointment (Bacitracin Ointment (04/13/25 17:00) Medications Received in ER Medications (Trade) Dose Ordered Sig/Bhaskar Route PRN Reason Start Time Stop Time Status Last Admin Dose Admin (Boostrix vaccine syringe) 0.5 ml ONCE ONCE IMVAC 04/13/25 16:10 04/13/25 16:11 DC 04/13/25 16:29 0.5 ML Vital Signs 04/13/25 16:04 Temp 97.8 Pulse 68 Resp 18 B/P (MAP) 152/70 Pulse Ox 100 O2 Flow Rate 0 Medical Decision Making Additional information obtaine: old records Findings Superficial laceration to right lower extremity. Last tetanus shot is unknown, updated tetanus status while here in the department. She was given care instructions as well as aftercare instructions. I placed 15 simple interrupted sutures. Patient tolerated well. Differential Dx:Considerations: Include: Contusion, Laceration, Fracture, Hematoma Departure Disposition: 01 HOME / SELF CARE / HOMELESS Impression: Primary Impression: Laceration Condition: Stable Discharge Instructions: Laceration Care, Adult Additional Instructions: Please return to the emergency department or to your primary care doctor in 10- 14 days to have your sutures removed. You have 15 sutures. Return to the emergency department earlier if you develop any new or worsening symptoms such as fevers, if you see pus coming from the wound, or if you develop redness around the wound that extends beyond beyond 1 in from the wound edges as these can be signs of a wound infection. Please call your doctor for a follow-up appointment in 2-3 days to determine the need for further evaluation. Take all antibiotics as prescribed. Please keep wound clean and dry. Referrals: NO PRIMARY CARE PROVIDER (PCP) Prescriptions Sulfamethoxazole/Trimethoprim (Septra Ds Tab) 800 Mg/160 Mg Tablet 1 TAB PO Q12H for 10 Days, #20 TAB Prov: ARELI SHEPARD 04/13/25 Education Educated: Patient Educated regarding: diagnosis, treatment, prognosis Additional Comment Medical Screen Exam This patient recieved a medical screening examination. After reviewing the individual's medical complaints with presenting symptoms and performing an appropriate physical examination, it was determined that no immediate life- threatening emergency medical condition is present. This individual is also not a women having contractions. Signature Scribe Signature: . Attestation: Scribed for Areli Shepard by Areli Hyman NP . 04/13/25 17:48 Parts of this note were created using [employer] voice recognition software program. While efforts were made to correct any mistakes made by this voice recognition software program, nonsensical phrases may remain in this note. In addition, there may be errors and syntax, grammar, content and spelling. XIANG CASTANEDA MAIL ORDER SORTER Apr 13, 2025 16:09 ARELI SHEPARD [employer]ATION HEL[employer] Apr 13, 2025 17:45
[2025-04-13] MEDS: LIDOcaine 1% W/epiNEPHrine 1:100,000 20ml vial IJ ONE (16:29)
[2025-04-13] MEDS: TETanus/Pertussis (Acell)/Diphther VAC/PF (Tdap-Adult) 0.5ml syringe IMVAC ONE (16:29)
[2025-04-13] MEDS: bacitracin 15gm ointment TP ONE (17:05)
[2025-04-13] MEDS ORDERED: SULF1TAB45 PO (17:44)
[2025-04-13] MEDS: sulfamethoxazole/trimethoprim DS (800/160mg) tablet PO ONE (17:49)
== END 2025-04-13 17:53 | disposition home or self-care (01) ==
LOC: ER 15:45
DX: S81.812A Laceration without foreign body, left lower leg, initial encounter (principal); E11.9 Type 2 diabetes mellitus without complications; I25.10 Atherosclerotic heart disease of native coronary artery without angina pectoris; I25.2 Old myocardial infarction; Z88.8 Allergy status to other drugs, medicaments and biological substances; Z95.1 Presence of aortocoronary bypass graft; X58.XXXA Exposure to other specified factors, initial encounter; Y93.89 Activity, other specified; Y92.89 Other specified places as the place of occurrence of the external cause; Y99.8 Other external cause status
CPT/HCPCS: 12002; 90471; 90715; 99283; A6258; A6449

== ENCOUNTER 2025-04-26 15:27 | Inpatient (IN) | payer BC ==
[~2025-04-26] VITALS: Ht 167.6 cm; Wt 61.9 kg
--- NOTE | 2025-04-26 15:50 | Physician Documentation ---
History of Present Illness ~ Chief Complaint: Foot pain Stated Complaint: R FOOT NUMBNESS Time Seen by MD: 16:13 OK to notify your PCP?: Yes Source: patient Mode of Arrival: POV Exam Limitations: no limitations HPI Very pleasant 59-year-old female that presents to the emergency department for complaints of what she describes as foot drop on the right side. Patient reports that her foot feels somewhat heavy when she tries to lift it to although she was able to lift it and that her great toe on the right side is not bending at this time she feels like there is a slight lag in her foot and right leg. Patient is alert oriented appropriate in her mentation no other deficits noted anywhere. 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 Patient also reports a history of 7 strokes with the last 1 being in 2020 for heart attacks the last in September of 2022 and 3 brain cancers of the last of which was almost 2 years ago again to resect an intracranial mass. 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 She does take an 81 mg baby aspirin daily but denies blood thinners antiarrhythmics medications for diabetes at this time. Tetanus witin 5 years: Yes Medication Reconciliation Allergies: Coded Allergies: Ewgjqoj-TBA-GzU Reductase Inhibitor (Verified Allergy, Intermediate, HIVES, 04/26/25) Uncoded Allergies: CHOLESTEROL MED (Allergy, Severe, 09/02/22) SEAFOOD (Adverse Reaction, Unknown, VOMITING, 08/17/19) Scheduled Acetaminophen/Dp-Hydram Hcl (Tylenol Pm), 1 TAB PO HS, (Reported) Aspirin (Aspir 81), 1 TAB PO DAILY, (Reported) Cholecalciferol (Vitamin D3) (Vitamin D3), 2 CAP PO Q48H, (Reported) Cholecalciferol (Vitamin D3) (Vitamin D3), 3 CAP PO Q48H, (Reported) Dexamethasone (Dexamethasone), 0.25 MG PO DAILY, (Reported) Dulaglutide (Trulicity), 1 SYR SQ Q7D, (Reported) Escitalopram Oxalate (Escitalopram Oxalate), 0.5 TAB PO HS, (Reported) Glipizide (Glipizide), 0.5 TAB PO BID, (Reported) Isosorbide Mononitrate (Isosorbide Mononitrate Er), 1 TAB PO BID, (Reported) Latanoprost (Latanoprost), 1 DROP EACHEYE HS, (Reported) Metformin HCl (Metformin HCl), 1 TAB PO BID, (Reported) Metoprolol Succinate (Metoprolol Succinate), 1 TAB PO BID, (Reported) Ranolazine (Ranolazine ER), 1 TAB PO BID, (Reported) Rosuvastatin Calcium (Rosuvastatin Calcium), 1 TAB PO DAILY, (Reported) [Immunotherapy], 1 UNIT IV Q30D, (Reported) [Liothyronine-Thyroxi], 1 TAB PO DAILY, (Reported) [Progesterone Compoun], 1 TAB PO HS, (Reported) Scheduled PRN Nitroglycerin (Nitroglycerin), 1 TAB SL for chest pain, (Reported) Discontinued Medications Sulfamethoxazole/Trimethoprim (Septra Ds Tab), 1 TAB PO Q12H Discontinued Reason: Auto Discontinued Past Medical History Past Medical History: Coronary Artery Disease, Myocardial Infarction, Diabetes, Melanoma, *CANCER*, Brain Cancer, Lung Cancer Past Surgical History: brain surgery (PITUITARY ADENOMA X 2, MELANOMA BRAIN, MELANOMA LUNG ), coronary bypass surgery Alcohol Use: None Drug Use: none Lives In: Home Review of Systems ROS As stated above in the HPI, otherwise all systems are reviewed and negative. Physical Exam Vital Signs: Temperature: 97.9, Source: Temporal, Heart Rate: 80, Respiratory Rate: 16, BP: 154/73, Pulse Oximetry: 100, Weight: 61.900 Oxygen Flow Rate: 0 Physical Exam GENERAL: Alert, no acute distress. HEENT: NCAT, EOMI, PERRL, normal oropharynx, moist oral mucosa. NECK: Supple, trachea midline. CARDIAC: Regular rate and rhythm, no murmurs, rubs, or gallops. Equal distal pulses. No lower extremity edema, cap refill less than 2 seconds. RESPIRATORY: Equal breath sounds, clear to auscultation bilaterally, no respiratory distress. GASTROINTESTINAL: Non distended, soft, nontender, No guarding or rebound. MUSCULOSKELETAL: Normal range of motion, nontender, no swelling. Normal gait. NEUROLOGICAL: Awake, alert, and oriented x 3. SENSORY OF FEET AND LOWER LEGS INTACT. PATIENT UNABLE TO DORSIFLEX HER RIGHT FOOT, LEFT FOOT DORSIFLEXION INTACT. SKIN: Warm/dry, no pallor, no rash. PSYCH: Alert and appropriate. Affect congruent with mood. Speech is clear. Good eye contact. Progress Progress Note EXAM: MR MRI LUMBAR SPINE CLINICAL HISTORY: eval for cord lesion right foot drop COMPARISON: None TECHNIQUE: MRI imaging of the lumbar was performed on a MRI imaging system without intravenous contrast. FINDINGS: 5 [id number] lumbar-type vertebrae. Mild straightening of the lumbar lordosis. The vertebral body heights are maintained. 1.6 cm suggested atypical hemangioma within the right L1 vertebral body. Endplate degenerative marrow signal at L5-S1. Grade 1 retrolisthesis of T12 on L1. The conus terminates at the level of T12-L1 with no abnormal cord signal. T12-L1: Posterior disc osteophyte complex. Without significant spinal canal or neural foramina stenosis. L1-L2: Minimal posterior disc bulge without significant spinal canal neural foramina stenosis. L2-L3: Minimal posterior disc bulge without significant spinal canal or neural foramina stenosis. L3-L4: Mild posterior disc bulge eccentric to the right, causing mild spinal canal stenosis. No significant neural foramina stenosis. L4-L5: Minimal posterior disc bulge with ligamentum flavum hypertrophy midline posterior annular fissure at causing mild spinal canal stenosis with Mi [id number]-uhsecwvi left and Mild right-sided neural foramina stenosis. L5-S1: Minimal posterior disc bulge without significant spinal canal stenosis. Moderate to severe Bilateral neural foramina stenosis. Paraspinal muscles are unremarkable. IMPRESSION: No cord compression or significant spinal canal stenosis. Mild spinal canal stenosis at L3-L4 and L4-L5. Midline posterior annular fissure at L4-L5 which could be a cause of pain. Moderate to severe Bilateral neural foramina stenosis at L5-S1. CT HEAD Indication: new onset foot drop EXAM DATE: 04/26/2025 04:50 PM COMPARISON: None TECHNIQUE: CT of the head without intravenous contrast. RADIATION DOSE: CTDIvol: 61 mGy, DLP: 1059 mGy*cm FINDINGS: There is no intracranial hemorrhage. There is no extra-axial fluid, mass, mass effect or midline shift. The ventricles are midline and normal in size. Basilar cisterns are patent. Left parietal craniotomy. There is underlying left parietal cortical encephalomalacia. Mild periventricular and subcortical white matter chronic microvascular ischemic changes. The paranasal sinuses and mastoids are well-pneumatized. Imaged portion of the orbits are unremarkable. IMPRESSION: No intracranial hemorrhage or mass effect. Mild chronic microvascular ischemic changes. Left parietal craniotomy and encephalomalacia. Results/Orders Results/Orders Orders - WILLAM STONER Mri Lumbar Spine (04/26/25 17:00) Ct Head (04/26/25 16:50) [place] Prov.Neuro Consult (04/26/25 18:26) Completed Orders - WILLAM STONER Cbc/Diff (04/26/25 16:50) BMP (04/26/25 16:50) ESR (04/26/25 16:50) C-Reactive Protein (04/26/25 16:50) Mri Lumbar Spine (04/26/25 17:00) Ct Head (04/26/25 16:50) Vital Signs 04/26/25 04/26/25 04/26/25 04/26/25 15:37 15:56 18:15 18:44 Temp 97.9 97.6 Pulse 80 82 77 Resp 16 15 16 16 B/P (MAP) 154/73 127/81 (96) 110/54 (72) Pulse Ox 100 100 99 O2 Flow Rate 0 Laboratory Tests Test 04/26/25 17:14 White Blood Count 6.1 Red Blood Count 4.38 Hemoglobin 13.5 Hematocrit 39.8 Mean Corpuscular Volume 90.9 Mean Corpuscular Hemoglobin 30.9 Mean Corpuscular Hemoglobin Concent 34.1 Red Cell Distribution Width 14.2 Platelet Count 277 Mean Platelet Volume 6.4 L Neutrophils (%) (Auto) 63.6 Lymphocytes (%) (Auto) 29.3 Monocytes (%) (Auto) 5.3 Eosinophils (%) (Auto) 1.1 Basophils (%) (Auto) 0.7 Neutrophils # (Auto) 3.9 Lymphocytes # (Auto) 1.8 Monocytes # (Auto) 0.3 Eosinophils # (Auto) 0.1 Basophils # (Auto) 0.0 CBC Comment Erythrocyte Sedimentation Rate 9 Sodium Level 132 L Potassium Level 3.7 Chloride Level 97 L Carbon Dioxide Level 27.3 Anion Gap 8 Blood Urea Nitrogen 31 H Creatinine 0.79 Estimated GFR/1.73 m2 75 BUN/Creatinine Ratio 39.2 H Glucose Level 87 Calcium Level 8.6 C-Reactive Protein 0.55 H Albumin 3.8 Chemistry Comments Medical Decision Making Additional information obtaine: N/A Findings N/A General Diff Dx:Considerations: Unlikely: Other Knee Diff Dx:Considerations: Unlikely: Other Ankle Diff Dx:Considerations: Unlikely: Other Foot Diff Dx:Considerations: Unlikely: Other Toe Diff Dx:Considerations: Unlikely: Other Additional Comment BRAIN LESION, STROKE, RECURRENT CANCER LESION IN BRAIN, SPINE, LEG, SYPHILLUS, PERONEAL NERVE PALSY Departure Time of Disposition: 19:12 Admitted to Inpatient Unit: to hospitalist Impression: Primary Impression: Foot drop, right Additional Impression: HISTORY OF MELANOMA BRAIN Condition: Fair Referrals: NO PRIMARY CARE PROVIDER (PCP) Education Educated: Patient Educated regarding: diagnosis, need for follow up Signature Scribe Signature: X Attestation: The note accurately reflects work and decisions made by me.Willam VILCHIS 04/26/25 19:11 HANDED OFF TO MY SUPERVISING PHYSICIAN DR. BECKER PENDING TELENEURO RECOM MENDATIONS SARABJIT LAY Apr 26, 2025 15:50 WILLAM STONER Apr 26, 2025 19:05
--- NOTE | 2025-04-26 17:24 | RADIOLOGY REPORT ---
CT CT HEAD Indication: new onset foot drop EXAM DATE: 04/26/2025 04:50 PM COMPARISON: None TECHNIQUE: CT of the head without intravenous contrast. RADIATION DOSE: CTDIvol: 61 mGy, DLP: 1059 mGy*cm FINDINGS: There is no intracranial hemorrhage. There is no extra-axial fluid, mass, mass effect or midline shift. The ventricles are midline and normal in size. Basilar cisterns are patent. Left parietal craniotomy. There is underlying left parietal cortical encephalomalacia. Mild periventricular and subcortical white matter chronic microvascular ischemic changes. The paranasal sinuses and mastoids are well-pneumatized. Imaged portion of the orbits are unremarkable. IMPRESSION: No intracranial hemorrhage or mass effect. Mild chronic microvascular ischemic changes. Left parietal craniotomy and encephalomalacia.
[2025-04-26 17:27] LABS: MEAN PLATELET VOLUME 6.4 FL (7.4-10.4); RED CELL DISTRIBUTION WIDTH 14.2 % (11.5-14.5)
[2025-04-26 17:44] LABS: CREATININE 0.79 MG/DL (0.40-0.90); TOTAL CARBON DIOXIDE 27.3 MMOL/L (24-32); eCRCL 74 ML/MIN; eGFR 75 ML/MIN
--- NOTE | 2025-04-26 18:20 | RADIOLOGY REPORT ---
EXAM: MR MRI LUMBAR SPINE CLINICAL HISTORY: eval for cord lesion right foot drop COMPARISON: None TECHNIQUE: MRI imaging of the lumbar was performed on a MRI imaging system without intravenous contrast. FINDINGS: 5 [id number] lumbar-type vertebrae. Mild straightening of the lumbar lordosis. The vertebral body heights are maintained. 1.6 cm suggested atypical hemangioma within the right L1 vertebral body. Endplate degenerative marrow signal at L5-S1. Grade 1 retrolisthesis of T12 on L1. The conus terminates at the level of T12-L1 with no abnormal cord signal. T12-L1: Posterior disc osteophyte complex. Without significant spinal canal or neural foramina stenosis. L1-L2: Minimal posterior disc bulge without significant spinal canal neural foramina stenosis. L2-L3: Minimal posterior disc bulge without significant spinal canal or neural foramina stenosis. L3-L4: Mild posterior disc bulge eccentric to the right, causing mild spinal canal stenosis. No significant neural foramina stenosis. L4-L5: Minimal posterior disc bulge with ligamentum flavum hypertrophy midline posterior annular fissure at causing mild spinal canal stenosis with [id number]-rm-[id number] left and Mild right-sided neural foramina stenosis. L5-S1: Minimal posterior disc bulge without significant spinal canal stenosis. Moderate to severe Bilateral neural foramina stenosis. Paraspinal muscles are unremarkable. IMPRESSION: No cord compression or significant spinal canal stenosis. Mild spinal canal stenosis at L3-L4 and L4-L5. Midline posterior annular fissure at L4-L5 which could be a cause of pain. Moderate to severe Bilateral neural foramina stenosis at L5-S1.
--- NOTE | 2025-04-26 19:25 | CONSULTATION REPORT ---
History of Present Illness Providers to CC ~ Allergies: Coded Allergies: Unprkyj-QJB-HbB Reductase Inhibitor (Verified Allergy, Intermediate, HIVES, 04/26/25) Uncoded Allergies: CHOLESTEROL MED (Allergy, Severe, 09/02/22) SEAFOOD (Adverse Reaction, Unknown, VOMITING, 08/17/19) Home Medications Home Medications Active Reported Vitamin D3 (Cholecalciferol (Vitamin D3)) 125 Mcg Capsule 3 Cap PO Q48H 30 Days 3 CAPS = 15,000 UNITS, ALTERNATES WITH 2 CAPS Vitamin D3 (Cholecalciferol (Vitamin D3)) 125 Mcg Capsule 2 Cap PO Q48H 30 Days 2 CAPS = 10,000 UNITS, ALTERNATES WITH 3 CAPS [Progesterone Compoun] 1 Tab PO HS COMPOUNDED PROGESTERONE 300 MG [Liothyronine-Thyroxi] 1 Tab PO DAILY COMPOUNDED THYROID MEDICINE DOSE 110-90 MCG [Immunotherapy] 1 Unit IV Q30D RECEIVES AT THE CANCER CLINIC Tylenol Pm (Acetaminophen/Dp-Hydram Hcl) 1 Each Tablet 1 Tab PO HS Aspir 81 (Aspirin) 81 Mg Tablet.dr 1 Tab PO DAILY 30 Days Dexamethasone 0.5 Mg Tablet 0.25 Mg PO DAILY 0.5 TAB = 0.25 MG Metoprolol Succinate 100 Mg Tab.sr.24h 1 Tab PO BID Isosorbide Mononitrate Er (Isosorbide Mononitrate) 60 Mg Tab.er.24h 1 Tab PO BID Glipizide 10 Mg Tablet 0.5 Tab PO BID 0.5 TAB = 5 MG Nitroglycerin 0.4 Mg Tab.subl 1 Tab SL PRN Ranolazine ER (Ranolazine) 500 Mg Tab.er.12h 1 Tab PO BID Trulicity (Dulaglutide) 0.75 Mg/0.5 Ml Pen.injctr 1 Syr SQ Q7D Rosuvastatin Calcium 5 Mg Tablet 1 Tab PO DAILY Metformin HCl 1,000 Mg Tablet 1 Tab PO BID Latanoprost 2.5 Ml Drops 1 Drop EACHEYE HS Escitalopram Oxalate 20 Mg Tablet 0.5 Tab PO HS Physical Exam Last Vital Signs Recorded: Temperature: 97.6, Source: Oral, Heart Rate: 77, Respiratory Rate: 16, BP: 110/54, Pulse Oximetry: 99, Weight: 61.900 Results Diagram Lab Result Diagram: 04/26/25 [id number] Assessment/Plan [place] [facility] Note # Demographics Consult Type: General Neurology Patient Location: Emergency Room First Name: Aline Last Name: VALENTINA Date of : 04/21/1966 Age: 59 Gender: Female Facility: [facility] Time of Initial Page (): 04/26/2025 18:59 First Contact with Site (): 04/26/2025 19:03 # HPI History: 59F reports her right foot was having some difficulty, but felt it may be an issue with her boots. Seemed worse today, tried new shoes and still with difficulty. MRI L-spine ok. No bowel/bladder change. No headache, no neck or back pain. # PMH-FH-SH Past Medical History: melanoma mets to brain Past Surgical History: melanoma resection from brain and lung reportedly # Assessment Impression: - Weakness right ankle dorsiflexion. Consider met, could be high left hemisphere, anywhere in spine potentially. Also could be peripheral. # Plan Imaging: (urgency: routine): - MRI Brain with AND without contrast MRI C-spine w/wo, MRI T-spine w/wo Other: - If patient has any neurological deterioration please call me back immediately - I have discussed my recommendations with the referring provider # Logistics Attestation of consult completion: The patient is located at: [facility]. Facility staff participated in the visit. I performed this telemedicine visit from my offsite office utilizing interactive 2 way audio and visual telecommunication technology at the request of the onsite emergency room provider. Consent: Verbal consent was obtained from the patient and/or family for this encounter. Total time spent in telemedicine encounter: I spent 20 minutes reviewing clinical data and/or imaging, obtaining history, examining the patient, communicating with the onsite care team, and in preparation of this report. # Demographics First Name: Aline Last Name: VALENTINA Facility: [facility] BALJINDER THOMPSON MD Apr 26, 2025 19:25
[2025-04-26] MEDS ORDERED: potassium Cl 40MEQ/1/2NS 520ml 520 ML IV PRN (19:55)
[2025-04-26] MEDS ORDERED: potassium Cl 20 mEq SR tablet PO PRN ×2 (19:55)
[2025-04-26] MEDS ORDERED: magnesium sulf-water 4G/100mL 100 ML IV PRN (19:55)
[2025-04-26] MEDS ORDERED: magnesium Cl slow-release 64mg tablet PO PRN (19:55)
[2025-04-26] MEDS ORDERED: ondansetron/PF 4mg/2ml inj IV PRN (19:55)
[2025-04-26] MEDS ORDERED: ondansetron 4mg rapidly disintigrating tab PO PRN (19:55)
[2025-04-26] MEDS ORDERED: magnesium hydroxide 30ml (MOM) UD suspension PO PRN (19:55)
[2025-04-26] MEDS ORDERED: magnesium sulf-water 2g/50mL 50 ML IV PRN (19:55)
[2025-04-26] MEDS ORDERED: mag hydrox/Alum hydrox/simeth 30ml oral suspension PO PRN (19:55)
[2025-04-26] MEDS: K and/or MAG REPLACEMENT MC SCH (20:00)
[2025-04-26 20:22] LABS: LEUKOCYTE ESTERASE ,URINE NEGATIVE (Neg); NITRITES, URINE NEGATIVE (Neg); OCCULT BLOOD,URINE NEGATIVE (Neg)
[2025-04-26 20:27] LABS: UA COLLECTION TYPE URINAL
[2025-04-26 20:35] LABS: PRO BRAIN NATRIURETIC PEPTIDE 203 PG/ML (0-125)
--- NOTE | 2025-04-26 20:42 | RADIOLOGY REPORT ---
CHEST RADIOGRAPH REASON FOR EXAM: Suspected CHF COMPARISON: CHEST,SINGLE VIEW on DOS: 09/02/22, CHEST,SINGLE VIEW on DOS: 05/27/20 TECHNIQUE: One view of the chest is provided FINDINGS: The cardiomediastinal silhouette is within normal limits for size. There are surgical changes in the mediastinum. There is no focal airspace disease. There is no significant pleural effusion. There is no pneumothorax. There is no pulmonary edema. No acute osseous abnormality is identified. IMPRESSION: No radiographic evidence of acute cardiopulmonary process.
[2025-04-26 20:58] LABS: URINE AMPHETAMINE SCREEN NEGATIVE (Neg); URINE BARBITUATE SCREEN NEGATIVE (Neg); URINE BENZODIAZEPINES SCREEN NEGATIVE (Neg); URINE CANNABINOID SCREEN NEGATIVE (Neg); URINE COCAINE SCREEN NEGATIVE (Neg); URINE METHADONE SCREEN NEGATIVE (Neg); URINE OPIATE SCREEN NEGATIVE (Neg); URINE PHENCYCLIDINE SCREEN NEGATIVE (Neg)
[2025-04-26] MEDS: PERFLUTREN PROTEIN-A MICROSPHR (Optison) 0.22 MG/ML 3ML VIAL IV ONE (21:00)
--- NOTE | 2025-04-26 21:00 | HISTORY AND PHYSICAL-Residence ---
History & Physical Providers to CC Resident Creating Document: CHERYLMICHAEL, RES ~ History of Present Illness Reason for Admit\Complaint: N History of Present Illness 59 years old female past medical history of PER ED: Very pleasant 59-year-old female that presents to the emergency department for complaints of what she describes as foot drop on the right side. Patient reports that her foot feels somewhat heavy when she tries to lift it to although she was able to lift it and that her great toe on the right side is not bending at this time she feels like there is a slight lag in her foot and right leg. Patient is alert oriented appropriate in her mentation no other deficits noted anywhere. 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 Patient also reports a history of 7 strokes with the last 1 being in 2020 for heart attacks the last in September of 2022 and 3 brain cancers of the last of which was almost 2 years ago again to resect an intracranial mass. 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 She does take an 81 mg baby aspirin daily but denies blood thinners antiarrhythmics medications for diabetes at this time Allergies: Coded Allergies: Vvemoiv-RKL-OpT Reductase Inhibitor (Verified Allergy, Intermediate, HIVES, 04/26/25) Uncoded Allergies: CHOLESTEROL MED (Allergy, Severe, 09/02/22) SEAFOOD (Adverse Reaction, Unknown, VOMITING, 08/17/19) Home Medications Home Medications Active Reported Vitamin D3 (Cholecalciferol (Vitamin D3)) 125 Mcg Capsule 3 Cap PO Q48H 30 Days 3 CAPS = 15,000 UNITS, ALTERNATES WITH 2 CAPS Vitamin D3 (Cholecalciferol (Vitamin D3)) 125 Mcg Capsule 2 Cap PO Q48H 30 Days 2 CAPS = 10,000 UNITS, ALTERNATES WITH 3 CAPS [Progesterone Compoun] 1 Tab PO HS COMPOUNDED PROGESTERONE 300 MG [Liothyronine-Thyroxi] 1 Tab PO DAILY COMPOUNDED THYROID MEDICINE DOSE 110-90 MCG [Immunotherapy] 1 Unit IV Q30D RECEIVES AT THE CANCER CLINIC Tylenol Pm (Acetaminophen/Dp-Hydram Hcl) 1 Each Tablet 1 Tab PO HS Aspir 81 (Aspirin) 81 Mg Tablet.dr 1 Tab PO DAILY 30 Days Dexamethasone 0.5 Mg Tablet 0.25 Mg PO DAILY 0.5 TAB = 0.25 MG Metoprolol Succinate 100 Mg Tab.sr.24h 1 Tab PO BID Isosorbide Mononitrate Er (Isosorbide Mononitrate) 60 Mg Tab.er.24h 1 Tab PO BID Glipizide 10 Mg Tablet 0.5 Tab PO BID 0.5 TAB = 5 MG Nitroglycerin 0.4 Mg Tab.subl 1 Tab SL PRN Ranolazine ER (Ranolazine) 500 Mg Tab.er.12h 1 Tab PO BID Trulicity (Dulaglutide) 0.75 Mg/0.5 Ml Pen.injctr 1 Syr SQ Q7D Rosuvastatin Calcium 5 Mg Tablet 1 Tab PO DAILY Metformin HCl 1,000 Mg Tablet 1 Tab PO BID Latanoprost 2.5 Ml Drops 1 Drop EACHEYE HS Escitalopram Oxalate 20 Mg Tablet 0.5 Tab PO HS Past Medical History Past Medical History Coronary Artery Disease s/p stent placement, CABG-2022 Type 2 DM Stage IV Melanoma Metastasis to Lungs and Brain Hypothyroidism and Adrenal insufficiency S/P Anterior Pituitary Resection of Pituitary Adenoma Past Surgical History Surgical History Comment Brain Resections CABG-2022 C-sections Past Social History Social History Comment PCP- Fraud Prevention Analyst - Oncologist- ( next appointment on Apr 30) Radiation Oncologist - Patient lives in home with family, 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 Ambulate with out any assistance Nonsmoker, not an alcohol user, denies any drug or marijuana use Alcohol Use: None Drug Use: None Lives In: Home ROS Constitutional: Reports: no symptoms reported ENT: Reports: no symptoms reported Respiratory: Reports: no symptoms reported Cardiovascular: Reports: no symptoms reported Gastrointestinal: Reports: no symptoms reported Genitourinary: Reports: no symptoms reported Female Genitalia: Reports: no reported symptoms Neurological: Reports: other (Patient reports Foot drop on Right side with Numbness and tingling ) Integumentary: Reports: no symptoms reported Allergic/Immunologic: Reports: no symptoms reported Hematologic/Lymphatic: Reports: no symptoms reported Endocrine: Reports: no symptoms reported Psychiatric: Reports: no symptoms reported Exam Vitals: Vital Signs Date Time Temp Pulse Resp B/P (MAP) Pulse Ox O2 Delivery O2 Flow Rate FiO2 04/26/25 18:44 77 16 110/54 (72) 99 04/26/25 15:56 97.6 04/26/25 15:37 0 General: Awake , alert, and oriented x4 HEENT: Atraumatic, normocephalic, EOMI, anicteric sclera ; pink conjunctiva Neck: Trachea midline. Supple, full range of motion, no JVD Cardiac: Regular rhythm, regular rate with no murmurs all over the precordium. Respiratory: Equal breath sounds bilaterally, no tachypnea, no wheezing ,rub or rales, Chest wall is symmetric and without deformity. Gastrointestinal: Abdomen symmetric, non-distended, soft, non-tender, normal bowel sounds x4 quadrant, normoactive, no hepatosplenomegaly Musculoskeletal: No pedal edema Neurological: Mental status exam: alert and consciousness, orientation, memory, speech - Cranial nerve test: Cranial nerves 2-12 intact - Motor system: Normal Nutrition, normal tone, Power 5/5, no involuntary movements - Sensory system: Numbness of bilateral Ankles,More pronounced in Right ankle and right rodriguez - Reflex testing: Biceps, triceps and (knee reflexes Left 2+ / Right Knee which is +1) - Cerebellar: Normal Skin: Warm and dry Extremities : No Edema, peripheral pulses felt, No deformities Psychiatric:Appropriate mood and affect,No hallucinations or suicidal ideation Diagnostic Data Last Recorded Lab Results: 04/26/25171304/26/251713 Advance Care Planning Advanced Care plannin - 30 Minutes Additional Plan 59 years old female past medical history stage IV melanoma metastasis to brain and lungs, peripheral neuropathy, hypopituitarism, coronary artery disease s/p stent-CABG, type 2 diabetes mellitus presents to ED with right foot drop Right foot drop likely 2/2 stroke/TIA[place] spine stenosis Teleneurology was consulted History of Type 2 diabetes mellitus Controlled According to the patient her last HGB A1c is 4.1, so she is not currently on any Hypopituitarism Patient takes dexamethasone, levothyroxine at home Continue home med after med rec Stage IV melanoma metastasis to lungs and brain Patient follows oncologist patient Patient evaluated using HIPPA complaint AV device Agree with plan as discussed with resident Kathryn Montalvo MD Date of Service: Apr 26, 2025 Billing Provider: KATHRYN MONTAVLO MD, SATISH, RES Apr 26, 2025 21:00 KATHRYN MONTALVO MD Apr 27, 2025 05:19
[2025-04-26] MEDS: docusate sod 100mg capsule PO SCH (21:10)
[2025-04-26] MEDS: aspirin 81mg, enteric-coated 1 TAB TABLET.DR PO SCH (21:10)
[2025-04-26] MEDS: normal saline 1000ml 1,000 ML IV SCH (21:48)
[2025-04-26 21:53] LABS: APTT 29 SECONDS (22-32); INR 1.0 INR
[2025-04-26] MEDS ORDERED: METO-384 PO (22:02)
[2025-04-26] MEDS ORDERED: CLOT30CR19 TOP (22:02)
[2025-04-26] MEDS ORDERED: ESCI-8 PO (22:02)
[2025-04-26 22:46] VITALS: BP 119/50; PULSE 71; RESP 16; TEMP 97.4; O2SAT 100
[2025-04-27] MEDS: heparin, porcine 5000 units/ml vial SQ SCH (01:28)
[2025-04-27 02:00] VITALS: BP 90/50; PULSE 72; RESP 16; TEMP 97.4; O2SAT 97
[2025-04-27 06:00] VITALS: BP 91/47; PULSE 69; RESP 16; TEMP 98.4; O2SAT 99
[2025-04-27 06:49] LABS: MEAN PLATELET VOLUME 6.5 FL (7.4-10.4); RED CELL DISTRIBUTION WIDTH 14.2 % (11.5-14.5)
[2025-04-27 07:04] LABS: CREATININE 0.65 MG/DL (0.40-0.90); TOTAL CARBON DIOXIDE 26.8 MMOL/L (24-32); eCRCL 89 ML/MIN; eGFR > 90 ML/MIN
[2025-04-27 07:23] LABS: BANDS% (MANUAL) 1.0 % (0-10); EOSINOPHILS % (MANUAL) 2.0 % (0-6); LYMPHOCYTES % (MANUAL) 54.0 % (21-51); MONOCYTES % (MANUAL) 4.0 % (2-12); NEUTROPHILS % (MANUAL) 39.0 % (42-75); PLATELET ESTIMATE NORMAL
[2025-04-27 08:00] VITALS: RESP 16; O2SAT 99
[2025-04-27 08:45] VITALS: BP_SYST 112; BP_SYST 121; BP_SYST 123; BP_DIAS 60; BP_DIAS 64; BP_DIAS 67; PULSE 68; PULSE 70; PULSE 78
[2025-04-27 11:00] VITALS: BP 121/64; PULSE 68; RESP 16; TEMP 98.3; O2SAT 98
--- NOTE | 2025-04-27 11:34 | RADIOLOGY REPORT ---
PROCEDURE: MR MRI C SPINE INDICATION: Cervical stenosis EXAM DATE: 04/27/2025 10:29 AM COMPARISON: None TECHNIQUE: MRI cervical spine without intravenous contrast. FINDINGS: No acute fracture or subluxation. Unremarkable bone marrow signal. Vertebral body heights are maintained. There is mild grade 1 retrolisthesis of C5 on C6. The facet articulations are maintained. The spinal cord is normal in caliber and signal characteristics. Normal vertebral artery flow voids are noted. The following axial levels are detailed below: C2-C3: No spinal canal or foraminal stenoses. C3-C4: Mild disc bulge with focal protrusion into the left subarticular zone. No spinal canal or foraminal stenoses. C4-C5: Mild disc bulge with a protrusion into the left subarticular zone with uncinate spurring. No spinal canal stenosis. No right foraminal stenosis. Mild left foraminal stenosis. C5-C6: Moderate broad-based disc bulge and uncinate spurring. There is mild effacement of the ventral thecal sac. No cord compression. Moderate left foraminal stenosis. C6-C7: Mild disc bulge with mild effacement of the ventral thecal sac. No cord compression. Mild left foraminal stenosis. C7-T1: No spinal canal or foraminal stenosis. IMPRESSION: No evidence of cord compression or cord signal abnormality Degenerative changes, most pronounced at C4-5, C5-6, and C6-7. Mild left foraminal stenosis at C4-5 Moderate left foraminal stenosis at C5-6 Mild left foraminal stenosis at C6-7
--- NOTE | 2025-04-27 12:06 | RADIOLOGY REPORT ---
CLINICAL HISTORY: Suspected Stroke TECHNIQUE: Routine multiplanar imaging of the brain was performed without gadolinium contrast. COMPARISON: CT CT HEAD on DOS: 04/26/25, MRI HEAD on DOS: 05/27/20, CT STROKE ALERT on DOS: 05/27/20, MRI HEAD on DOS: 05/21/20 FINDINGS: There is no abnormal restricted diffusion to suggest acute infarction. There has been left parieto-occipital craniotomy small area of subjacent encephalomalacia. There is no evidence for acute ischemic changes, mass, mass effect, or extra- axial fluid collection. There is no hydrocephalus or midline shift. The cerebral sulci and subarachnoid cisterns are not effaced. The imaged paranasal sinuses are clear. The globes are intact. The midline structures, including the corpus callosum, are unremarkable. The intracranial flow voids are maintained. IMPRESSION: No acute intracranial abnormality seen. No evidence for acute infarct. Left parieto-occipital craniotomy with small area of subjacent encephalomalacia.
--- NOTE | 2025-04-27 12:18 | VASCULAR REPORT ---
The above named patient was referred for a NON-INVASIVE CEREBROVASCULAR EVALUATION. The evaluation includes grayscale imaging, color flow Doppler and spectral analysis of the bilateral carotid and vertebral arteries. Patient IN-PATIENT L ttihinBilateral Indications CVA Risk Factors TIA/CVA History Diabetes Doppler Spectral Velocity Analysis Right Left pCCA 100/25 cm/s pCCA 102/29 cm/s dCCA 104/34 cm/s dCCA 120/36 cm/s ECA 165/ cm/s ECA 115/ cm/s pICA 83/25 cm/s pICA 71/25 cm/s Bradley 86/33 cm/s Bradley 104/36 cm/s dICA 83/31 cm/s dICA 72/23 cm/s Vert. 79/27 cm/s Vert. 73/22 cm/s Subcl. 162/ cm/s Subcl. 183/ cm/s ICA/CCA 0.83 ICA/CCA 0.90 CONCLUSION Imaging reveals no evidence of significant stenosis and/or occlusion of the Carotid Arteries bilaterally. <50% stenosis visualized in the Common Carotid Arteries, Internal Carotid Arteries, and External Carotid Arteries bilaterally. Antegrade flow visualized in Vertebral Arteries bilaterally. Multiphasic Subclavian Arteries bilaterally.
--- NOTE | 2025-04-27 12:46 | RADIOLOGY REPORT ---
PROCEDURE: MR MRI THORACIC SPINE INDICATION: Suspected Stroke Exam Date: 04/27/2025 11:22 AM COMPARISON: None TECHNIQUE: MRI thoracic spine without intravenous contrast. FINDINGS: The thoracic alignment is intact. The vertebral body heights are intact. The marrow signal is within normal limits. There is a hemangioma in L1 vertebral body. There is broad-based disc bulge at T12-L1 with mild effacement of the ventral thecal sac. No cord compression. Spinal cord signal is normal throughout the thoracic spinal cord. No significant foraminal stenoses. The visualized paraspinal soft tissues are otherwise unremarkable. Bilateral simple renal cysts are noted. IMPRESSION: Broad-based disc bulge at T12-L1 with mild effacement of the ventral thecal sac. Intact thoracic cord signal. No evidence of cord compression.
[2025-04-27 15:00] VITALS: BP 100/56; PULSE 81; RESP 16; TEMP 97.4; O2SAT 98
[2025-04-27] MEDS ORDERED: CHOL20002 PO (15:34)
--- NOTE | 2025-04-27 18:50 | DISCHARGE SUMMARY ---
Discharge Summary Providers to ~ Discharge Summary Admission Diagnosis: Foot drop, Stroke Hospital Course DATE OF ADMISSION: 04/26/25 DATE OF DISCHARGE:04/27/25 CBC testing done on April 27, 2025 WBC 3.6 hemoglobin 12.7 hematocrit 36.6 platelet count 235 sed rate nine. Vitamin B12 pending . Be done on April 27, 2025 sodium 135 potassium 4.1 creatinine 0.65 GFR greater than 90 hemoglobin A1c 5.0 normal liver enzymes. ProBNP 203, TSH 0.21. MRI THORACIC SPINEMPRESSION: Broad-based disc bulge at T12-L1 with mild effacement of the ventral thecal sac. Intact thoracic cord signal. No evidence of cord compression. MRI HEADIMPRESSION: No acute intracranial abnormality seen. No evidence for acute infarct. Left parieto-occipital craniotomy with small area of subjacent encephalomalacia. MRI C SPINEIMPRESSION: No evidence of cord compression or cord signal abnormality Degenerative changes, most pronounced at C4-5, C5-6, and C6-7. Mild left foraminal stenosis at C4-5 Moderate left foraminal stenosis at C5-6 Mild left foraminal stenosis at C6-7 CONCLUSION Imaging reveals no evidence of significant stenosis and/or occlusion of the Carotid Arteries bilaterally. <50% stenosis visualized in the Common Carotid Arteries, Internal Carotid Arteries, and External Carotid Arteries bilaterally. Antegrade flow visualized in Vertebral Arteries bilaterally. Multiphasic Subclavian Arteries bilaterally. MRI LUMBAR SPINEIMPRESSION: No cord compression or significant spinal canal stenosis. Mild spinal canal stenosis at L3-L4 and L4-L5. Midline posterior annular fissure at L4-L5 which could be a cause of pain. Moderate to severe Bilateral neural foramina stenosis at L5-S1. CT HEAD-IMPRESSION: No intracranial hemorrhage or mass effect. Mild chronic microvascular ischemic changes. Left parietal craniotomy and encephalomalacia. CHEST,SINGLE VIEWIMPRESSION: No radiographic evidence of acute cardiopulmonary process. Showed overall left ventricular ejection fraction 60-65% overall systolic function is normal. Normal left ventricular size and wall thickness. PA systolic pressure 32. Mobile interatrial septum travels/trace bidirectional flow detected by color and spectral Doppler in preliminary echocardiogram report. Normal pericardium no pericardial effusion Discharge Diagnosis\\Comment: Moderate to severe Bilateral neural foramina spinal stenosis at L5-S1.foot drop on the right side, Coronary Artery Disease s/p stent placement, CABG-2022, Hypothyroidism and Adrenal insufficiency S/P Anterior Pituitary Resection of Pituitary Adenoma. History of Stage IV Melanoma Metastasis to Lungs and Brain Left parieto-occipital craniotomy with small area of subjacent encephalomalacia. Operations\\Procedures: None Consultants: Phuc Celeste tele specialist vijay peña. Complications: None Condition on DC: Stable New Medications: Cholecalciferol (Vitamin D3) (Vitamin D3) 50 Mcg (2000 Unit) Capsule 1 CAP PO DAILY for 30 Days, #30 CAP 0 Refills Continued Medications: Aspirin (Aspir 81) 81 Mg Tablet.dr 1 TAB PO DAILY for 30 Days, #30 TAB Dexamethasone (Dexamethasone) 0.5 Mg Tablet 0.25 MG PO DAILY 0.5 TAB = 0.25 MG Escitalopram Oxalate (Escitalopram Oxalate) 10 Mg Tablet 1 TAB PO DAILY [Immunotherapy] () 1 UNIT IV Q30D RECEIVES AT THE CANCER CLINIC Isosorbide Mononitrate (Isosorbide Mononitrate Er) 60 Mg Tab.er.24h 1 TAB PO BID Latanoprost (Latanoprost) 2.5 Ml Drops 1 DROP EACHEYE HS Metoprolol Succinate (Metoprolol Succinate) 50 Mg Tab.sr.24h 1 TAB PO BID Nitroglycerin (Nitroglycerin) 0.4 Mg Tab.subl 1 TAB SL PRN for chest pain [Progesterone Compoun] () 1 TAB PO HS COMPOUNDED PROGESTERONE 300 MG Ranolazine (Ranolazine ER) 500 Mg Tab.er.12h 1 TAB PO BID Rosuvastatin Calcium (Rosuvastatin Calcium) 5 Mg Tablet 1 TAB PO DAILY Discontinued Medications: Acetaminophen/Dp-Hydram Hcl (Tylenol Pm) 1 Each Tablet 1 TAB PO HS, TAB Cholecalciferol (Vitamin D3) (Vitamin D3) 125 Mcg Capsule 2 CAP PO Q48H for 30 Days, #30 CAP 0 Refills 2 CAPS = 10,000 UNITS, ALTERNATES WITH 3 CAPS Cholecalciferol (Vitamin D3) (Vitamin D3) 125 Mcg Capsule 3 CAP PO Q48H for 30 Days, #30 CAP 0 Refills 3 CAPS = 15,000 UNITS, ALTERNATES WITH 2 CAPS Clotrimazole (Clotrimazole) 1 % Cream..g. 1 APPLIC TOP Dulaglutide (Trulicity) 0.75 Mg/0.5 Ml Pen.injctr 1 SYR SQ Q7D for SUNDAYS Escitalopram Oxalate (Escitalopram Oxalate) 20 Mg Tablet 0.5 TAB PO HS Metoprolol Succinate (Metoprolol Succinate) 100 Mg Tab.sr.24h 1 TAB PO BID Discharge Summary: As per ER records "Very pleasant 59-year-old female that presents to the emergency department for complaints of what she describes as foot drop on the right side. Patient reports that her foot feels somewhat heavy when she tries to lift it to although she was able to lift it and that her great toe on the right side is not bending at this time she feels like there is a slight lag in her foot and right leg. Patient is alert oriented appropriate in her mentation no other deficits noted anywhere. 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 Patient also reports a history of 7 strokes with the last 1 being in 2020 for heart attacks the last in September of 2022 and 3 brain cancers of the last of which was almost 2 years ago again to resect an intracranial mass. 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 She does take an 81 mg baby aspirin daily but denies blood thinners antiarrhythmics medications for diabetes at this time" 59 years old female past medical history stage IV melanoma metastasis to brain and lungs, peripheral neuropathy, hypopituitarism, coronary artery disease s/p stent-CABG, type 2 diabetes mellitus presents to ED with right foot drop Hospitalization treated for Right foot drop likely 2/2 stroke/TIA-[place] spine stenosis Teleneurology was consulted ,follow the recommendation History of Type 2 diabetes mellitus Controlled According to the patient her last HGB A1c is 4.1, currently she is not on any diabetic medication Medication reconcilation Denied using glipizide, metformin ,Trulicity, metoprolol 100 mg, also mentioned she is currently not taking Ranolazine , isosorbide mononitrate rosuvastatin which was prescribed by Cardiology/ Hypopituitarism Patient takes dexamethasone, levothyroxine at home Continue home med after med rec TSH low needs free T4 and TSH repeat testing in 6-8 weeks Stage IV melanoma metastasis to lungs and brain Patient follows oncologist patient s/p Left parieto-occipital craniotomy Patient is feeling better she has been afebrile and getting discharged home in stable condition. PATIENT IS AMBULATING WELL WEARING HER SHOES AND TOOK MUL TIPLE LAPS IN PCU AND NURSING STAFF JESSIE WITNESSED THAT. HER GAIT IS STABLE ON AMBULATION . I ALSO SAW THE PATIENT WALKING MYSELF IN ROOM 3021/A. Patient is seen and examined on the day of discharge. All labs, diagnostic workup and discharge plan discussed with patient in detail before her discharge. All questions and queries answered to the best of my professional medical knowledge. I heard patient's concerns and address appropriately. Discharge instructions provided to the patient. Please follow up with PCP , Dr Ricky Russell drug regulatory affairs specialist , insurance marketing specialist in outpatient setting in 1-2 weeks. Provide fall precautions document activity as tolerated. Discuss all your medications with PCP. Repeat TSH testing in 6-8 weeks with PCP in outpatient setting. She also mentioned that she is going through lot of stress in her personal life and going through a divorce process. But she mentioned she has good field service engineer against her . General-patient not in any acute distress, alert awake oriented, age- appropriate, looks comfortable HEENT-atraumatic normocephalic, neck supple without elevated JVD, no thyromegaly or carotid bruit. No lymphadenopathy bilaterally. Eyes-no icterus or pallor seen in eyes Chest-clear to auscultation bilaterally, breathing nonlabored no tachypnea, no wheezing, no crepitation, no crackles. Heart-S1-S2 normal, regular heart rate no murmur Abdomen bowel sounds positive on auscultation, soft nondistended nontender no guarding, no rigidity Skin no active skin rash Neurology-grossly intact, nonfocal alert awake oriented, no focal neurological deficit noticed for right foot drop hormone speech no arm drift no other weakness over extremities Extremity- no pedal edema able to move all 4 extremities. she Can ambulate Psychiatry - patient is not confused or agitated cooperated during physical examination *Problems/Diagnosis: (1) Foot drop, right Status: Acute Total Time Spent on D/C: > 30 Minutes Date of Service: Apr 27, 2025 Billing Provider: GERI MDCOWELL MD Common Visit Codes: 96144-RQA/OBS DISCH DAY >30min GERI MCDOWELL MD Apr 27, 2025 18:30
--- NOTE | 2025-04-28 15:45 | CARDIOLOGY REPORT ---
APPROVED REPORT EXAM: Comprehensive 2D, Doppler, and color-flow Echocardiogram. Patient Location: 30[address] Blood Pressure: 100/56 mmHg Heart Rate: 81 bpm Rhythm: Sinus Rhythm Indications CVA/TIA Right Foot Numbness Stage IV Cancer(Lungs) Hx of 7 Strokes Hx of CAD CABG X 3 (2019 [facility]) Hx of Stents (2022 [facility]) Diabetes Mellitus II Plant Scientist: Yolanda Giordano MD [facility] Previous echo: 08/19/2019 [facility] EF:60% 2D Dimensions RVDd 3.8 cm LA Diam 4.0 cm IVSd 1.0 (0.7-1.1cm) LVDd 4.4 cm PWd 1.0 (0.7-1.1cm) IVSs 0.9 (0.8-1.2cm) RA Minor 3.4 cm LVDs 2.8 (2.5-4.0cm) PWs 1.3 (0.8-1.2cm) LVOT Diameter 1.97 (1.8-2.4cm) LVEF(%) 66.8 (>50%) IVC 14.45 mm FS (%) 36.7 % SV 57.6 ml CO 4.6 L/min M-Mode Dimensions MV EPSS 0.7 (<0.5cm) Biplane 2D LA Volumes LA ESV A4C 60.78 mL/m2 Aortic Valve AoV Peak [place]. 125.9 cm/s AoV VTI 21.0 cm AO Peak GR. 6.3 mmHg AO Mean GR. 3 mmHg LVOT VTI 18.52 cm LVOT Peak [place]. 99.5 cm/s ROSY(VTI)/BSA 2.69 cm2/m2 ROSY (VTI) 2.69 cm2 AV DI 0.88 % Mitral Valve MV E Velocity 78.3 cm/s MV Peak Gr. 3 mmHg MV DECEL TIME 204 ms MV A Velocity 85.3 cm/s MV PHT 52 ms E/A Ratio 0.9 MVA (PHT) 4.23 cm2 MV VMax 91.9 cm/s Tricuspid Valve TR P. Velocity 233 cm/s RAP ESTIMATE 10 mmHg TR Peak Gr. 22 mmHg RVSP 32 mmHg LEFT VENTRICLE Normal LV size and wall thickness. Overall systolic function is normal. Overall LVEF is 60-65%. RIGHT VENTRICLE Right ventricle is mild to moderately dilated with normal function. Estimated PA systolic pressure is 32 mmHg. ATRIA The left atrium size is normal. Mobile interatrial septum - trivial/trace bi- directional flow detected by color and spectral Doppler. The right atrium size is normal. AORTIC VALVE Probable trileaflet AV appears sclerotic without stenosis or insufficiency. MITRAL VALVE Mild MV annular calcification without stenosis. Trace regurgitation. TRICUSPID VALVE TV appears structurally normal with mild regurgitation. PULMONIC VALVE Normal PV without stenosis, physiologic insufficiency. GREAT VESSELS The aortic root is normal in size. IVC is normal in size and collapses less than 50% with inspiration. PERICARDIUM Normal pericardium. No pericardial effusion seen. Other Information Study Quality: Fair Conclusion Overall LVEF is 60-65%. Normal LV size and wall thickness. Overall systolic function is normal. The left atrium size is normal. Mobile interatrial septum - trivial/trace bi- directional flow detected by color and spectral Doppler. The right atrium size is normal. Probable trileaflet AV appears sclerotic without stenosis or insufficiency. Mild MV annular calcification without stenosis. Trace regurgitation. TV appears structurally normal with mild regurgitation. Normal PV without stenosis, physiologic insufficiency. Normal pericardium. No pericardial effusion seen.
== END 2025-04-27 16:26 | disposition home or self-care (01) | DRG 552 ==
LOC: ER 15:27 → ED HOLD 20:07 → PCU 3S 22:30 → EDBEDREQ 22:34
PROVIDERS: ADMIT Internal Medicine; ATTEND Internal Medicine
DX: M48.07 Spinal stenosis, lumbosacral region (principal); C78.01 Secondary malignant neoplasm of right lung; C79.31 Secondary malignant neoplasm of brain; C78.02 Secondary malignant neoplasm of left lung; E23.0 Hypopituitarism; C43.9 Malignant melanoma of skin, unspecified; E03.9 Hypothyroidism, unspecified; G93.89 Other specified disorders of brain; E11.42 Type 2 diabetes mellitus with diabetic polyneuropathy; M21.371 Foot drop, right foot; I25.10 Atherosclerotic heart disease of native coronary artery without angina pectoris; Z95.1 Presence of aortocoronary bypass graft; Z63.5 Disruption of family by separation and divorce; I25.2 Old myocardial infarction; Z95.5 Presence of coronary angioplasty implant and graft
CPT/HCPCS: 36415; 70450; 70551; 71045; 72141; 72146; 72148; 80048; 80053; 80305; 81003; 82550; 82607; 83036; 83880; 84443; 85007; 85025; 85610; 85651; 85730; 86140; 87081; 93306; 93880; 99285; A6449; G0378; J1644; J7030